=== PATIENT | female | born 1970 | race American Indian/Alaskan Native ===

== ENCOUNTER 2018-01-02 14:40 | Emergency (ER) | payer OTHER ==
[2018-01-02 15:01] VITALS: BP 129/91
--- NOTE | 2018-01-02 15:47 | EDM.PDOC ---
ED HPI GENERAL MEDICAL PROBLEM - General Chief Complaint: Lower Extremity Injury/Pain Stated Complaint: BIG TOE, LEFT FOOT Time Seen by Provider: 01/02/18 15:15 Source of Information: Reports: Patient History Limitations: Reports: No Limitations - History of Present Illness INITIAL COMMENTS - FREE TEXT/NARRATIVE: This 47 yo female patient reports to the ED with pain in her right toes, right foot, right moreno and left great toe. The patient reports that she tripped over a weight lifting bar injuring her feet. The patient reports she has some numbness to her left great toe with swelling. The patient also reports swelling and pain in her right moreno and right foot. The patient had an ice pack in place while in the ED. Onset: Today Duration: Minutes:, Constant Location: Reports: Lower Extremity, Left, Lower Extremity, Right Quality: Reports: Ache, Dull Severity: Moderate Improves with: Reports: None Worsens with: Reports: None Associated Symptoms: Reports: No Other Symptoms Left Feet Pain Score (Numeric/FACES): 8 - Related Data Allergies Allergy/AdvReac Type Severity Reaction Status Date / Time acetaminophen [From Percocet] Allergy Itching Verified 06/23/15 17:55 oxycodone HCl [From Percocet] Allergy Itching Verified 06/23/15 17:55 Home Meds: Home Meds . [No Known Home Meds] 04/16/14 [History] Past Medical History - Past Health History Medical/Surgical History: Denies Medical/Surgical History - Past Surgical History Musculoskeletal Surgical History: Reports: Other (See Below) Other Musculoskeletal Surgeries/Procedures:: foot surg. Social & Family History - Tobacco Use Smoking Status *Q: Never Smoker - Caffeine Use Caffeine Use: Reports: Coffee, Soda, Tea - Recreational Drug Use Recreational Drug Use: No - Living Situation & Occupation Living situation: Reports: with Family Occupation: Employed Review of Systems - Review of Systems Review Of Systems: ROS reveals no pertinent complaints other than HPI. ED EXAM, GENERAL - Physical Exam Exam: See Below Exam Limited By: No Limitations General Appearance: Alert, WD/WN, Mild Distress Eye Exam: Bilateral Eye: EOMI, Normal Inspection, PERRL Ears: Normal External Exam, Normal Canal, Hearing Grossly Normal, Normal TMs Nose: Normal Inspection, Normal Mucosa, No Blood Throat/Mouth: Normal Inspection, Normal Lips, Normal Teeth, Normal Gums, Normal Oropharynx, Normal Voice, No Airway Compromise Head: Atraumatic, Normocephalic Neck: Normal Inspection, Supple, Non-Tender, Full Range of Motion Respiratory/Chest: No Respiratory Distress, Lungs Clear, Normal Breath Sounds, No Accessory Muscle Use, Chest Non-Tender Cardiovascular: Normal Peripheral Pulses, Regular Rate, Rhythm, No Edema, No Gallop, No JVD, No Murmur, No Rub GI/Abdominal: Normal Bowel Sounds, Soft, Non-Tender, No Organomegaly, No Distention, No Abnormal Bruit, No Mass (Female) Exam: Deferred Rectal (Female) Exam: Deferred Back Exam: Normal Inspection, Full Range of Motion, NT Extremities: Leg Pain (right lower leg and foot pain, left great toe pain with numbness), Limited Range of Motion (due to pain) Neurological: Alert, Oriented, CN II-XII Intact, Normal Cognition, Normal Gait, Normal Reflexes, No Motor/Sensory Deficits Psychiatric: Normal Affect, Normal Mood Skin Exam: Warm, Dry, Other (right toe abrasions) Course - Vital Signs Last Recorded V/S: Last Vital Signs Temp 37.1 C 01/02/18 15:00 Pulse 94 01/02/18 15:00 Resp 16 01/02/18 15:00 BP 129/91 H 01/02/18 15:00 Pulse Ox 97 01/02/18 15:00 - Orders/Labs/Meds Orders: Active Orders 24 hr Category Date Time Status Foot Comp Min 3V Lt [CR] Urgent Exams 01/02/18 15:08 Ordered Foot Comp Min 3V Rt [CR] Urgent Exams 01/02/18 15:08 Ordered Tibia Fibula Rt [CR] Urgent Exams 01/02/18 15:08 Ordered Departure - Departure Time of Disposition: 16:25 Disposition: Home, Self-Care 01 Condition: Fair Clinical Impression: Closed fracture of right great toe Qualifiers: Encounter type: initial encounter Phalanx: distal Fracture alignment: nondisplaced Qualified Code(s): S92.424A - Nondisplaced fracture of distal phalanx of right great toe, initial encounter for closed fracture - Discharge Information Instructions: Toe Fracture, [id number] Forms: ED Department Discharge Care Plan Goals: The patient was advised of the examination and x-ray results during the visit. The patient was placed in a left post op shoe. The patient was encouraged to rest and elevate her foot for the next week. The patient should follow-up with her primary care facility in 1 week for continued evaluation and further treatment. If the patient has any additional symptoms or concerns, the patient should visit her primary care facility or return to the emergency department. - My Orders Last 24 Hours: My Active Orders 01/02/18 15:08 Foot Comp Min 3V Lt [CR] Urgent Foot Comp Min 3V Rt [CR] Urgent Tibia Fibula Rt [CR] Urgent - Assessment/Plan Last 24 Hours: My Active Orders 01/02/18 15:08 Foot Comp Min 3V Lt [CR] Urgent Foot Comp Min 3V Rt [CR] Urgent Tibia Fibula Rt [CR] Urgent
--- NOTE | 2018-01-02 16:55 | CR ---
Clinical history: Injured when tripped and fell. Interpretation: AP lateral right lower extremity (tib-fib/fib) demonstrates bilateral soft tissue swe lling and smoothly corticated (old) osseous fragment along the lateral aspect of the distal fibula. No acute long bone fracture or dislocation of the right knee/ankle joint. Large heel spurs identified respectively at the insertion of plantar aponeurosis and Achilles tendon of the os calcis.
--- NOTE | 2018-01-02 16:59 | CR ---
Clinical history: 47-year-old female injured left foot. Pain. 3 views left foot abnormal. INDICATION: Acute nondisplaced fracture base of the distal phalanx, medially, left great toe that ext ends into the DIP joint. Signs of extensive orthopedic corrective valgus surgery including amputation head of the proximal pha langes second, third and fourth toes. 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 Chronic arthritic changes tarsal navicular joint mid foot, first MTP and third MTP joints of the fore foot.
--- NOTE | 2018-01-03 09:28 | CR ---
CLINICAL HISTORY: 47-year-old female with pain right foot after tripping and falling. INTERPRETATION: Pronounced soft tissue swelling over the lateral malleolus. Heel spurs. Pes cavus and hammertoe deformity. Pronounced soft tissue swelling dorsum of the foot but no sign of acute right foot fracture or disloc ation. Atavistic first cuneiform with severe hallux valgus and soft tissue bunion. No foreign bodies. CONCLUSION: Pes cavus, hallux valgus and hammertoe deformities. No fractures right foot.
== END 2018-01-02 16:39 | disposition home or self-care (01) ==
LOC: DL.ED 14:40
DX: S92.425A Nondisplaced fracture of distal phalanx of left great toe, initial encounter for closed fracture (principal); S90.414A Abrasion, right lesser toe(s), initial encounter; Z88.8 Allergy status to other drugs, medicaments and biological substances; W18.09XA Striking against other object with subsequent fall, initial encounter
CPT/HCPCS: 73590-RT; 73630-LT; 73630-RT; 99283

== ENCOUNTER 2018-02-17 16:36 | Emergency (ER) | payer OTHER ==
[2018-02-17] MEDS ORDERED: Sodium Chloride 0.9% 10 ML Syringe FLUSH PRN (18:11)
[2018-02-17] MEDS ORDERED: ceFAZolin 1 GM Vial IVPUSH ONE (18:45)
[2018-02-17] MEDS ORDERED: Ketorolac 30 MG/ML SDV IVPUSH ONE (18:46)
[2018-02-17] MEDS ORDERED: Doxycycline 100 MG Cap PO ONE (18:46)
[2018-02-17 18:48] LABS: ANION GAP 8.8; CHLORIDE,CL 105 mmol/L (101-111); SODIUM,NA 137 mmol/L (135-145)
[2018-02-17 19:14] VITALS: BP 136/81
--- NOTE | 2018-02-19 13:42 | EDM.PDOC ---
Scribed by Chetna William 02/19/18 1342 for Scott Rogers MD ED HPI GENERAL MEDICAL PROBLEM - General Chief Complaint: Lower Extremity Injury/Pain Stated Complaint: [id number] KNEE SWOLLEN AND PAINFUL 3 DAYS Time Seen by Provider: 02/17/18 17:50 Source of Information: Reports: Patient, RN, RN Notes Reviewed History Limitations: Reports: No Limitations - History of Present Illness INITIAL COMMENTS - FREE TEXT/NARRATIVE: Patient presents to ER with pain, swelling and redness to the right lower leg. Patient states that she got a small abrasion to the right moreno on February 14. Yesterday she noticed increased redness and swelling with increased warmth from the ankle to the mid right lower leg. She denies fever or chills but feels slightly ill in general. Also reports sensation of pain and pressure in the right knee. Patient has history of cellulitis. She is unsure if she has ever had MRSA or not. Onset Date: 02/14/18 Duration: Getting Worse Location: Reports: Lower Extremity, Right Quality: Reports: Ache Severity: Severe Improves with: Reports: None Worsens with: Reports: None Associated Symptoms: Reports: No Other Symptoms Right Lower Leg Pain Score (Numeric/FACES): 7 - Related Data Allergies Allergy/AdvReac Type Severity Reaction Status Date / Time acetaminophen [From Percocet] Allergy Itching Verified 06/23/15 17:55 oxycodone HCl [From Percocet] Allergy Itching Verified 06/23/15 17:55 Home Meds: Home Meds . [No Known Home Meds] 04/16/14 [History] Past Medical History - Past Health History Medical/Surgical History: Denies Medical/Surgical History - Past Surgical History Musculoskeletal Surgical History: Reports: Other (See Below) Other Musculoskeletal Surgeries/Procedures:: foot surg. Social & Family History - Caffeine Use Caffeine Use: Reports: Coffee, Soda, Tea - Living Situation & Occupation Living situation: Reports: with Family Occupation: Employed Review of Systems - Review of Systems Review Of Systems: ROS reveals no pertinent complaints other than HPI. ED EXAM, GENERAL - Physical Exam Exam: See Below Exam Limited By: No Limitations General Appearance: Alert, WD/WN, No Apparent Distress, Obese Nose: Normal Inspection Throat/Mouth: Normal Inspection, Normal Voice, No Airway Compromise Head: Atraumatic, Normocephalic Neck: Normal Inspection, Supple, Non-Tender, Full Range of Motion Respiratory/Chest: No Respiratory Distress, Lungs Clear, Normal Breath Sounds, No Accessory Muscle Use, Chest Non-Tender Cardiovascular: Normal Peripheral Pulses, Regular Rate, Rhythm, No Edema, No Gallop, No JVD, No Murmur, No Rub GI/Abdominal: Normal Bowel Sounds, Soft, Non-Tender, No Distention (Female) Exam: Deferred Rectal (Female) Exam: Deferred Extremities: No Pedal Edema, Normal Capillary Refill, Joint Swelling (mild right knee without erythema or increased warmth but with limited range of motion due to pain.), Leg Pain (right lower), Increased Warmth (right lower), Redness (right lower), Other (subacute 2cm abrasion scabbed over with intact eschar at the mid anterior right lower leg. No drainage. ). No: Aide's Sign Neurological: Alert, Oriented, CN II-XII Intact, Normal Cognition, No Motor/ Sensory Deficits Psychiatric: Normal Affect, Normal Mood Course - Vital Signs Last Recorded V/S: Last Vital Signs Temp 36.9 C 02/17/18 19:13 Pulse 66 02/17/18 19:13 Resp 14 02/17/18 19:13 BP 136/81 02/17/18 19:13 Pulse Ox 98 02/17/18 19:13 - Orders/Labs/Meds Labs: Laboratory Tests 02/17/18 02/17/18 02/17/18 Range/Units 18:19 18:19 18:19 WBC 6.2 (5.0-10.0) 10^3/uL RBC 4.84 (4.2-5.4) 10^6/uL Hgb 12.9 (12.0-16.0) g/dL Hct 41.5 (37.0-47.0) % MCV 85.7 D (80-100) fL MCH 26.7 L (27.0-34.0) pg MCHC 31.1 L (33.0-35.0) g/dL Plt Count 364 D (150-450) 10^3/uL Neut % (Auto) 63.3 (42.2-75.2) % Lymph % (Auto) 27.3 (20.5-50.1) % [place] % (Auto) 5.7 (2-8) % Eos % (Auto) 3.4 H (1.0-3.0) % Baso % (Auto) 0.3 (0.0-1.0) % D-Dimer, Quantitative 447 H (0-400) ng/mL Sodium 137 (135-145) mmol/L Potassium 3.8 (3.6-5.0) mmol/L Chloride 105 (101-111) mmol/L Carbon Dioxide 27.0 (21.0-31.0) mmol/L Anion Gap 8.8 BUN 16 (7-18) mg/dL Creatinine 0.7 (0.6-1.3) mg/dL Est Cr Clr Drug Dosing 106.06 mL/min Estimated GFR (MDRD) > 60 BUN/Creatinine Ratio 22.85 Glucose 115 H (74-105) mg/dL Lactic Acid (0.5-2.2) mmol/L Calcium 8.6 (8.4-10.2) mg/dl Total Bilirubin 0.7 (0.2-1.0) mg/dL AST 25 (10-42) IU/L ALT 22 (10-60) IU/L Alkaline Phosphatase 75 (42-121) IU/L C-Reactive Protein (0.0-1.3) mg/dL Total Protein 7.3 (6.7-8.2) g/dl Albumin 3.4 (3.2-5.5) g/dl Globulin 3.9 Albumin/Globulin Ratio 0.87 02/17/18 02/17/18 Range/Units 18:19 18:19 WBC (5.0-10.0) 10^3/uL RBC (4.2-5.4) 10^6/uL Hgb (12.0-16.0) g/dL Hct (37.0-47.0) % MCV (80-100) fL MCH (27.0-34.0) pg MCHC (33.0-35.0) g/dL Plt Count (150-450) 10^3/uL Neut % (Auto) (42.2-75.2) % Lymph % (Auto) (20.5-50.1) % [place] % (Auto) (2-8) % Eos % (Auto) (1.0-3.0) % Baso % (Auto) (0.0-1.0) % D-Dimer, Quantitative (0-400) ng/mL Sodium (135-145) mmol/L Potassium (3.6-5.0) mmol/L Chloride (101-111) mmol/L Carbon Dioxide (21.0-31.0) mmol/L Anion Gap BUN (7-18) mg/dL Creatinine (0.6-1.3) mg/dL Est Cr Clr Drug Dosing mL/min Estimated GFR (MDRD) BUN/Creatinine Ratio Glucose (74-105) mg/dL Lactic Acid 0.9 (0.5-2.2) mmol/L Calcium (8.4-10.2) mg/dl Total Bilirubin (0.2-1.0) mg/dL AST (10-42) IU/L ALT (10-60) IU/L Alkaline Phosphatase (42-121) IU/L C-Reactive Protein 1.7 H (0.0-1.3) mg/dL Total Protein (6.7-8.2) g/dl Albumin (3.2-5.5) g/dl Globulin Albumin/Globulin Ratio Meds: Medications Discontinued Medications Generic Name Dose Route Start Last Admin Trade Name Freq PRN Reason Stop Dose Admin Cefazolin Sodium 1 gm 02/17/18 18:45 02/17/18 19:00 Ancef IVPUSH 02/17/18 18:46 1 gm ONETIME ONE Administration Doxycycline Hyclate 100 mg 02/17/18 18:46 02/17/18 19:00 Vibramycin PO 02/17/18 18:47 100 mg ONETIME ONE Administration Ketorolac Tromethamine 30 mg 02/17/18 18:46 02/17/18 19:00 Toradol IVPUSH 02/17/18 18:47 30 mg ONETIME ONE Administration Sodium Chloride 10 ml 02/17/18 18:11 02/17/18 18:40 Saline Flush FLUSH 10 ml ASDIRECTED PRN Administration Keep Vein Open Departure - Departure Time of Disposition: 19:30 Disposition: Home, Self-Care 01 Condition: Good Clinical Impression: Cellulitis of lower extremity Qualifiers: Laterality: right Qualified Code(s): L03.115 - Cellulitis of right lower limb - Discharge Information Instructions: Cellulitis, Adult Referrals: Mary Ellen Ambrocio NP [Primary Care Provider] - Forms: ED Department Discharge Additional Instructions: Keflex 500mg tab by mouth four times daily for 10 days. Doxycyline 100 mg tab by mouth twice daily for 10 days. Follow up with your primary acute care nurse practitioner. I have read and agree with the documentation that has been completed regarding this visit. By signing this record, I attest that the documentation was completed in my physical presence and is an accurate record of the encounter.
== END 2018-02-17 19:19 | disposition home or self-care (01) ==
LOC: DL.ED 16:36
DX: L03.115 Cellulitis of right lower limb (principal); Z88.8 Allergy status to other drugs, medicaments and biological substances
CPT/HCPCS: 36415; 80053; 83605; 85025; 85379; 86140; 87040; 96374; 96375; 99283; A9270; J0690; J1885; J7050

== ENCOUNTER 2018-04-15 17:41 | Emergency (ER) | payer OTHER ==
[2018-04-15 17:48] VITALS: BP 196/95
[2018-04-15] MEDS ORDERED: metroNIDAZOLE 250 MG Tab PO ONE (18:30)
[2018-04-15] MEDS ORDERED: Cyclobenzaprine 10 MG Tab PO ONE (18:31)
[2018-04-15] MEDS ORDERED: Ibuprofen 800 MG Tab PO ONE (18:32)
--- NOTE | 2018-04-15 18:35 | EDM.PDOC ---
Scribed by Chetna William 04/15/18 2425 for Scott Rogers MD ED HPI GENERAL MEDICAL PROBLEM - General Chief Complaint: Back Pain or Injury Stated Complaint: BACK PROBLEMS [id number] Time Seen by Provider: 04/15/18 17:52 Source of Information: Reports: Patient, RN, RN Notes Reviewed History Limitations: Reports: No Limitations - History of Present Illness INITIAL COMMENTS - FREE TEXT/NARRATIVE: Patient presents to ER with complaint of low back pain and suprapubic pain x1 day. Denies fevers or chills. Denies radiating pain. Denies vaginal bleeding or discharge. Onset Date: 04/14/18 Duration: Getting Worse Location: Reports: Back Quality: Reports: Ache Severity: Moderate Improves with: Reports: None Worsens with: Reports: None Associated Symptoms: Reports: No Other Symptoms Lower Back Pain Score (Numeric/FACES): 10 - Related Data Allergies Allergy/AdvReac Type Severity Reaction Status Date / Time acetaminophen [From Percocet] Allergy Itching Verified 04/15/18 17:45 oxycodone HCl [From Percocet] Allergy Itching Verified 04/15/18 17:45 Home Meds: Home Meds . [No Known Home Meds] 04/16/14 [History] Past Medical History - Past Health History Medical/Surgical History: Denies Medical/Surgical History - Past Surgical History Musculoskeletal Surgical History: Reports: Other (See Below) Other Musculoskeletal Surgeries/Procedures:: foot surg. Social & Family History - Caffeine Use Caffeine Use: Reports: Coffee, Soda, Tea - Living Situation & Occupation Living situation: Reports: with Family Occupation: Employed ED ROS GENERAL - Review of Systems Review Of Systems: ROS reveals no pertinent complaints other than HPI. ED EXAM,LOWER BACK PAIN/INJURY - Physical Exam Exam: See Below Exam Limited By: No Limitations General Appearance: Alert, WD/WN, No Apparent Distress, Obese Head: Atraumatic Neck: Normal Inspection, Supple, Non-Tender, Full Range of Motion Respiratory/Chest: No Respiratory Distress, Lungs Clear, Normal Breath Sounds, No Accessory Muscle Use, Chest Non-Tender Cardiovascular: Regular Rate, Rhythm GI/Abdominal: Normal Bowel Sounds, Soft, Non-Tender, Tender (suprapubic). No: Guarding, Rigid, Rebound (Female) Exam: Deferred Rectal (Female) Exam: Deferred Back Exam: Decreased Range of Motion (LS region), Muscle Spasm (lumbar), Paraspinal Tenderness (lumbar). No: CVA Tenderness (L), CVA Tenderness (R), Vertebral Tenderness Extremities: Normal Inspection, Normal Range of Motion, Non-Tender, No Pedal Edema, Normal Capillary Refill Neurological: Alert, Normal Mood/Affect, Normal Dorsiflexion, CN II-XII Intact, Normal Plantar Flexion, Normal Gait, No Motor/Sensory Deficits, Oriented x 3 Psychiatric: Normal Affect, Normal Mood Skin Exam: Warm, Dry, Intact, Normal Color, No Rash Course - Vital Signs Last Recorded V/S: Last Vital Signs Temp 36.8 C 04/15/18 17:48 Pulse 95 04/15/18 17:48 Resp 15 04/15/18 17:48 BP 196/95 H 04/15/18 17:48 Pulse Ox 99 04/15/18 17:48 - Orders/Labs/Meds Orders: Active Orders 24 hr Category Date Time Status CHLAMYDIA AND GONORRHEA BY TMA Routine Lab 04/15/18 18:25 Ordered Labs: Laboratory Tests 04/15/18 Range/Units 17:50 Urine Color Yellow (YELLOW) Urine Appearance Cloudy (CLEAR) Urine pH 5.5 (5.0-9.0) Ur Specific [place] 1.025 (1.005-1.030) Urine Protein Negative (NEGATIVE) Urine Glucose (UA) Negative (NEGATIVE) Urine Ketones Negative (NEGATIVE) Urine Occult Blood Negative (NEGATIVE) Urine Nitrite Negative (NEGATIVE) Urine Bilirubin Negative (NEGATIVE) Urine Urobilinogen 0.2 (0.2-1.0) mg/dL Ur Leukocyte Esterase Small H (NEGATIVE) Urine RBC 0-5 /HPF Urine WBC 50-75 H (0-5/HPF) /HPF Ur Epithelial Cells Many H /HPF Urine Bacteria Many H (0-FEW/HPF) /HPF Meds: Medications Discontinued Medications Generic Name Dose Route Start Last Admin Trade Name Freq PRN Reason Stop Dose Admin Cyclobenzaprine HCl 10 mg 04/15/18 18:31 Flexeril PO 04/15/18 18:32 ONETIME ONE Ibuprofen 800 mg 04/15/18 18:32 Motrin PO 04/15/18 18:33 ONETIME ONE Metronidazole 500 mg 04/15/18 18:30 Metronidazole PO 04/15/18 18:31 ONETIME ONE Departure - Departure Time of Disposition: 18:31 Disposition: Home, Self-Care 01 Condition: Good Clinical Impression: Bacterial vaginosis, Spasm of muscle of lower back - Discharge Information Instructions: Bacterial Vaginosis, [id number], Back Pain, Adult, [id number] Forms: ED Department Discharge Additional Instructions: RX: Flagyl 500mg. RX: Cyclobenzaprine 10mg. RX: Ibuprofen 600mg. Follow up in clinic for recheck of urine in 7 to 10 days. - My Orders Last 24 Hours: My Active Orders 04/15/18 18:25 CHLAMYDIA AND GONORRHEA BY TMA Routine - Assessment/Plan Last 24 Hours: My Active Orders 04/15/18 18:25 CHLAMYDIA AND GONORRHEA BY TMA Routine I have read and agree with the documentation that has been completed regarding this visit. By signing this record, I attest that the documentation was completed in my physical presence and is an accurate record of the encounter.
== END 2018-04-15 18:51 | disposition home or self-care (01) ==
LOC: DL.ED 17:41
DX: N76.0 Acute vaginitis (principal); B96.89 Other specified bacterial agents as the cause of diseases classified elsewhere; M62.830 Muscle spasm of back; Z88.8 Allergy status to other drugs, medicaments and biological substances
CPT/HCPCS: 81001; 87491; 87591; 99283; A9270

== ENCOUNTER 2018-09-15 16:35 | Emergency (ER) | payer MEDICAID ==
[2018-09-15 17:11] VITALS: BP 130/88
[2018-09-15] MEDS ORDERED: Ondansetron 4 MG Tab.DIS PO ONE (17:48)
--- NOTE | 2018-09-15 17:51 | EDM.PDOC ---
ED HPI GENERAL MEDICAL PROBLEM - General Chief Complaint: General Stated Complaint: NOT FEELING GOOD Time Seen by Provider: 09/15/18 17:30 Source of Information: Reports: Patient History Limitations: Reports: No Limitations - History of Present Illness INITIAL COMMENTS - FREE TEXT/NARRATIVE: Patient complains of vomiting, diarrhea and headaches for 2 days. Her body feels warm all over. She has some lower abdominal pain that comes and goes. Sharp pain. The patient states she has had blood in her stools on and off over the past year , but it's been over a month since her last BM with blood. She had a colonoscopy , but does not know what they said about it. She has had no pain with urination, no blood in her urine and no increased frequency. No cough, sore throat or congestion. She just started taking hydrochlorothiazide for her high BP about 1 week ago. Onset Date: 09/13/18 Duration: Intermittent Location: Reports: Abdomen Severity: Mild Associated Symptoms: Reports: Fever/Chills (hasn't taken her temp, but feels warm all over), Headaches. 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 (at 12:30 today, no improvement.) Headache Pain Score (Numeric/FACES): 8 - Related Data Allergies Allergy/AdvReac Type Severity Reaction Status Date / Time acetaminophen [From Percocet] Allergy Itching Verified 09/15/18 17:14 oxycodone HCl [From Percocet] Allergy Itching Verified 09/15/18 17:14 Home Meds: Home Meds hydroCHLOROthiazide [Hydrochlorothiazide] 12.5 mg PO DAILY 09/15/18 [History] Past Medical History - Past Health History Medical/Surgical History: Denies Medical/Surgical History HEENT History: Reports: None Cardiovascular History: Reports: Hypertension Respiratory History: Reports: Sleep Apnea Other Respiratory History: CPAP Gastrointestinal History: Reports: None Genitourinary History: Reports: None 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 Social & Family History - Family History Family Medical History: Noncontributory - Tobacco Use Smoking Status *Q: Never Smoker - Caffeine Use Caffeine Use: Reports: None - Recreational Drug Use Recreational Drug Use: No - Living Situation & Occupation Living situation: Reports: with Family Occupation: Employed ED ROS GENERAL - Review of Systems Review Of Systems: See Below Constitutional: Reports: Fever HEENT: Reports: No Symptoms Respiratory: Reports: No Symptoms GI/Abdominal: Reports: Abdominal Pain, Diarrhea, Nausea, Vomiting : Reports: No Symptoms Skin: Reports: No Symptoms ED EXAM, GENERAL - Physical Exam Exam: See Below Exam Limited By: No Limitations General Appearance: Alert, WD/WN, No Apparent Distress Respiratory/Chest: No Respiratory Distress, Lungs Clear, Normal Breath Sounds, No Accessory Muscle Use, Chest Non-Tender Cardiovascular: Normal Peripheral Pulses, Regular Rate, Rhythm, No Edema, No Gallop, No JVD, No Murmur, No Rub GI/Abdominal: Normal Bowel Sounds, Soft, No Organomegaly, No Distention, No Abnormal Bruit, No Mass, Tender (lower abdomen) (Female) Exam: Deferred Rectal (Female) Exam: Deferred Skin Exam: Warm, Dry, Intact Lymphatic: No Adenopathy Course - Vital Signs Last Recorded V/S: Last Vital Signs Temp 98.6 F 09/15/18 17:10 Pulse 91 09/15/18 17:10 Resp 16 09/15/18 17:10 BP 130/88 09/15/18 17:10 Pulse Ox 98 09/15/18 17:10 - Orders/Labs/Meds Orders: Active Orders 24 hr Category Date Time Status CHLAMYDIA AND GONORRHEA BY TMA Routine Lab 09/15/18 18:29 Ordered CULTURE URINE [RM] Stat Lab 09/15/18 18:29 Ordered Labs: Laboratory Tests 09/15/18 09/15/18 09/15/18 Range/Units 17:48 17:48 17:55 WBC 7.1 (5.0-10.0) 10^3/uL RBC 4.86 (4.2-5.4) 10^6/uL Hgb 13.3 (12.0-16.0) g/dL Hct 41.9 (37.0-47.0) % MCV 86.2 (80-100) fL MCH 27.4 (27.0-34.0) pg MCHC 31.7 L (33.0-35.0) g/dL Plt Count 385 (150-450) 10^3/uL Neut % (Auto) 77.6 H (42.2-75.2) % Lymph % (Auto) 15.4 L (20.5-50.1) % Edgar % (Auto) 5.8 (2-8) % Eos % (Auto) 1.1 (1.0-3.0) % Baso % (Auto) 0.1 (0.0-1.0) % Sodium (135-145) mmol/L Potassium (3.6-5.0) mmol/L Chloride (101-111) mmol/L Carbon Dioxide (21.0-31.0) mmol/L Anion Gap BUN (7-18) mg/dL Creatinine (0.6-1.3) mg/dL Est Cr Clr Drug Dosing mL/min Estimated GFR (MDRD) BUN/Creatinine Ratio Glucose (74-105) mg/dL Calcium (8.4-10.2) mg/dl Total Bilirubin (0.2-1.0) mg/dL AST (10-42) IU/L ALT (10-60) IU/L Alkaline Phosphatase (42-121) IU/L Total Protein (6.7-8.2) g/dl Albumin (3.2-5.5) g/dl Globulin Albumin/Globulin Ratio Amylase (28-100) U/L Lipase (22-51) U/L Urine Color Yellow (YELLOW) Urine Appearance Slightly cloudy (CLEAR) Urine pH 5.5 (5.0-9.0) Ur Specific Robert >= 1.030 (1.005-1.030) Urine Protein 30 H (NEGATIVE) Urine Glucose (UA) Negative (NEGATIVE) Urine Ketones Trace H (NEGATIVE) Urine Occult Blood Trace-intact H (NEGATIVE) Urine Nitrite Negative (NEGATIVE) Urine Bilirubin Negative (NEGATIVE) Urine Urobilinogen 0.2 (0.2-1.0) mg/dL Ur Leukocyte Esterase Negative (NEGATIVE) Urine RBC 0-5 /HPF Urine WBC 5-10 H (0-5/HPF) /HPF Ur Epithelial Cells Moderate H /HPF Urine Bacteria Moderate H (0-FEW/HPF) /HPF Urine Mucus Moderate H /LPF Urinalysis Comment See note Urine Opiates Screen Negative (NEGATIVE) Ur Oxycodone Screen Negative (NEGATIVE) Urine Methadone Screen Negative (NEGATIVE) Ur Barbiturates Screen Negative (NEGATIVE) U Tricyclic Antidepress Negative (NEGATIVE) Ur Phencyclidine Scrn Negative (NEGATIVE) Ur Amphetamine Screen Negative (NEGATIVE) U Methamphetamines Scrn Negative (NEGATIVE) Urine MDMA Screen Negative (NEGATIVE) U Benzodiazepines Scrn Negative (NEGATIVE) Urine Cocaine Screen Negative (NEGATIVE) U Marijuana (THC) Screen Negative (NEGATIVE) 09/15/18 Range/Units 17:55 WBC (5.0-10.0) 10^3/uL RBC (4.2-5.4) 10^6/uL Hgb (12.0-16.0) g/dL Hct (37.0-47.0) % MCV (80-100) fL MCH (27.0-34.0) pg MCHC (33.0-35.0) g/dL Plt Count (150-450) 10^3/uL Neut % (Auto) (42.2-75.2) % Lymph % (Auto) (20.5-50.1) % Edgar % (Auto) (2-8) % Eos % (Auto) (1.0-3.0) % Baso % (Auto) (0.0-1.0) % Sodium 138 (135-145) mmol/L Potassium 3.7 (3.6-5.0) mmol/L Chloride 107 (101-111) mmol/L Carbon Dioxide 24.0 (21.0-31.0) mmol/L Anion Gap 10.7 BUN 21 H (7-18) mg/dL Creatinine 0.7 (0.6-1.3) mg/dL Est Cr Clr Drug Dosing 106.06 mL/min Estimated GFR (MDRD) > 60 BUN/Creatinine Ratio 30.00 Glucose 105 (74-105) mg/dL Calcium 7.8 L (8.4-10.2) mg/dl Total Bilirubin 0.7 (0.2-1.0) mg/dL AST 23 (10-42) IU/L ALT 22 (10-60) IU/L Alkaline Phosphatase 92 (42-121) IU/L Total Protein 7.7 (6.7-8.2) g/dl Albumin 3.3 (3.2-5.5) g/dl Globulin 4.4 Albumin/Globulin Ratio 0.75 Amylase 47 (28-100) U/L Lipase 22 (22-51) U/L Urine Color (YELLOW) Urine Appearance (CLEAR) Urine pH (5.0-9.0) Ur Specific Robert (1.005-1.030) Urine Protein (NEGATIVE) Urine Glucose (UA) (NEGATIVE) Urine Ketones (NEGATIVE) Urine Occult Blood (NEGATIVE) Urine Nitrite (NEGATIVE) Urine Bilirubin (NEGATIVE) Urine Urobilinogen (0.2-1.0) mg/dL Ur Leukocyte Esterase (NEGATIVE) Urine RBC /HPF Urine WBC (0-5/HPF) /HPF Ur Epithelial Cells /HPF Urine Bacteria (0-FEW/HPF) /HPF Urine Mucus /LPF Urinalysis Comment Urine Opiates Screen (NEGATIVE) Ur Oxycodone Screen (NEGATIVE) Urine Methadone Screen (NEGATIVE) Ur Barbiturates Screen (NEGATIVE) U Tricyclic Antidepress (NEGATIVE) Ur Phencyclidine Scrn (NEGATIVE) Ur Amphetamine Screen (NEGATIVE) U Methamphetamines Scrn (NEGATIVE) Urine MDMA Screen (NEGATIVE) U Benzodiazepines Scrn (NEGATIVE) Urine Cocaine Screen (NEGATIVE) U Marijuana (THC) Screen (NEGATIVE) Meds: Medications Discontinued Medications Generic Name Dose Route Start Last Admin Trade Name Freq PRN Reason Stop Dose Admin Metronidazole 500 mg 09/15/18 18:32 Metronidazole PO 09/15/18 18:33 ONETIME ONE Ondansetron HCl 4 mg 09/15/18 17:48 09/15/18 17:56 Zofran Odt PO 09/15/18 17:49 4 mg ONETIME ONE Administration Promethazine HCl 25 mg 09/15/18 18:32 Phenergan PO 09/15/18 18:33 ONETIME ONE Departure - Departure Time of Disposition: 18:41 Disposition: Home, Self-Care 01 Clinical Impression: Bacterial vaginal infection - Discharge Information *PRESCRIPTION DRUG MONITORING PROGRAM REVIEWED*: Not Applicable *COPY OF PRESCRIPTION DRUG MONITORING REPORT IN PATIENT RONA: Not Applicable Forms: ED Department Discharge - Problem List Review Problem List Initiated/Reviewed/Updated: Yes - Assessment/Plan Assessment:: 47 year old women with complaints of lower abdominal pain, vomiting, diarrhea and headaches for 2 days. Labs suggest bacterial vaginosis. Plan: 1. Metronidazole 500mg 2. Zofran 4 mg 3. Phenergan 25mg 4. Sent patient home after taking tonight's dose of medications. Will pick-up rest of prescription tomorrow morning at her pharmacy. 5. F/u with primary care facility if symptoms do not improve.
[2018-09-15 18:22] LABS: ANION GAP 10.7; CHLORIDE,CL 107 mmol/L (101-111); SODIUM,NA 138 mmol/L (135-145)
[2018-09-15] MEDS ORDERED: Promethazine 25 MG Tab PO ONE (18:32)
[2018-09-15] MEDS ORDERED: metroNIDAZOLE 250 MG Tab PO ONE (18:32)
== END 2018-09-15 19:10 | disposition home or self-care (01) ==
LOC: DL.ED 16:35
DX: N76.0 Acute vaginitis (principal); B96.89 Other specified bacterial agents as the cause of diseases classified elsewhere; I10 Essential (primary) hypertension; Z88.5 Allergy status to narcotic agent; Z88.8 Allergy status to other drugs, medicaments and biological substances; Z79.899 Other long term (current) drug therapy
CPT/HCPCS: 36415; 80053; 80305-QW; 81001; 82150; 83690; 85025; 87086; 99284; A9270-GY

== ENCOUNTER 2018-10-26 09:25 | Emergency (ER) | payer MEDICAID ==
[2018-10-26 09:44] VITALS: BP 149/97
[2018-10-26] MEDS ORDERED: methylPREDNISolone Sodium Succinate 125 MG/2 ML SDV IM ONE (09:45)
[2018-10-26] MEDS ORDERED: Ketorolac 30 MG/ML SDV IM ONE (09:45)
[2018-10-26 10:21] LABS: ANION GAP 13.6; CHLORIDE,CL 105 mmol/L (101-111); SODIUM,NA 137 mmol/L (135-145)
--- NOTE | 2018-10-26 17:31 | ER ---
SUBJECTIVE: The patient is a 47-year-old female who states she is normally healthy. She comes in because she has had a cold for about a week. She has been coughing a lot and the more she coughs, more her chest wall hurts. She denies any chest wall injury or trauma. No falls, no fevers, no nausea or vomiting. No bowel or bladder changes or bleeding. No ear pain, sinus pain, or sore throat. CURRENT MEDICATIONS: Denied. ALLERGIES: Include acetaminophen and oxycodone, both cause itching. PAST MEDICAL HISTORY: She denies any significant history. SOCIAL HISTORY: No substance abuse. REVIEW OF SYSTEMS: No fevers or chills. No sore throat, ear pain, eye pain, sinus pain, neck pain. No abdominal pain, bowel or bladder changes or bleeding. Denies . Please see HPI. OBJECTIVE: Vitals: Stable. She is afebrile, heart rate 74, blood pressure 149/97, respiration rate 16, oxygen is 99% on room air. General: Ambulatory. Healthy appearing but overweight. HEENT: Normocephalic and atraumatic. Conjunctivae are clear. ENT exam not remarkable. Neck: Unremarkable. Chest: Clear breathing and breathing well. No coughing, moving air with good breath sounds throughout. She does have chest wall tenderness. There is no rash, atraumatic. No crepitus or specific tenderness. Abdomen: Soft, obese. Back: No CVAT. Extremities: No edema. LABORATORY DATA/STUDIES: Chest x-ray does not show any specific pneumonia. Troponin is normal. CBC and CMP are not remarkable. EKG does not show any acute findings. Normal sinus rate. EMERGENCY ROOM COURSE: She was given injection of Toradol and Solu-Medrol. Tolerated these very well. She is improved and stable. ASSESSMENT: 1. Bronchitis. 2. Costochondritis/atypical chest wall pain. PLAN: Prescription for Medrol Dosepak, Z-Samuel, Tessalon Perles, and albuterol inhaler. Symptomatic treatment. [id number] cough meds and syrup, rest, sleep, hydration, humidifier. Follow up with PCP or return for emergent issues. [facility] /[id number]
== END 2018-10-26 10:48 | disposition home or self-care (01) ==
LOC: DL.ED 09:25
DX: J40 Bronchitis, not specified as acute or chronic (principal); M94.0 Chondrocostal junction syndrome [Tietze]; Z88.6 Allergy status to analgesic agent
CPT/HCPCS: 36415; 71046; 80053; 84484; 85025; 93005; 96372; 99285; J1885; J2930

== ENCOUNTER 2018-10-29 13:03 | Emergency (ER) | payer MEDICAID ==
[2018-10-29 13:16] VITALS: BP 151/81
--- NOTE | 2018-10-29 13:45 | EDM.PDOC ---
ED HPI GENERAL MEDICAL PROBLEM - General Chief Complaint: Respiratory Problem Stated Complaint: HARD TIME BREATHING Time Seen by Provider: 10/29/18 13:35 Source of Information: Reports: Patient History Limitations: Reports: No Limitations - History of Present Illness INITIAL COMMENTS - FREE TEXT/NARRATIVE: This 47 yo female patient reports to the ED with increased shortness of breath. 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 Today, as she was on her way back from [place], she began to have difficulties breathing. The patient reports she was seen in the ED on Saturday (10/26/18) for similar symptoms. The patient reports she was diagnosed with Bronchitis and given prescriptions for 1) Azithromycin, 2) Prednisone and 3) Albuterol inhaler. The patient reports she has not taken any of her medications today. The patient reports she was going to use the inhaler on her way back to [place], but she forgot it at her home. The patient reports she does not have a primary care provider. Onset: Today Duration: Constant Location: Reports: Chest Quality: Reports: Other Severity: Moderate Improves with: Reports: Rest Worsens with: Reports: Movement Associated Symptoms: Reports: Shortness of Breath Middle Chest Pain Score (Numeric/FACES): 4 - Related Data Allergies Allergy/AdvReac Type Severity Reaction Status Date / Time acetaminophen [From Percocet] Allergy Itching Verified 10/29/18 13:07 oxycodone HCl [From Percocet] Allergy Itching Verified 10/29/18 13:07 Home Meds: Home Meds Albuterol Sulfate [Albuterol Sulfate Hfa] 1 puff INH Q4HR PRN 10/29/18 [History] Benzonatate [Tessalon Perle] 100 mg PO TID PRN 10/29/18 [History] Past Medical History - Past Health History Medical/Surgical History: Denies Medical/Surgical History HEENT History: Reports: None Cardiovascular History: Reports: Hypertension Respiratory History: Reports: Bronchitis, Recurrent, Sleep Apnea Other Respiratory History: CPAP Gastrointestinal History: Reports: None Genitourinary History: Reports: None 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 Social & Family History - Family History Family Medical History: Noncontributory - Tobacco Use Smoking Status *Q: Never Smoker Second Hand Smoke Exposure: No - Caffeine Use Caffeine Use: Reports: Soda - Recreational Drug Use Recreational Drug Use: No - Living Situation & Occupation Living situation: Reports: with Family Occupation: Employed ED ROS GENERAL - Review of Systems Review Of Systems: ROS reveals no pertinent complaints other than HPI. ED EXAM, GENERAL - Physical Exam Exam: See Below Exam Limited By: No Limitations General Appearance: Alert, WD/WN, Moderate Distress Eye Exam: Bilateral Eye: EOMI, Normal Inspection, PERRL Ears: Normal External Exam, Normal Canal, Hearing Grossly Normal, Normal TMs Nose: Normal Inspection, Normal Mucosa, No Blood Throat/Mouth: Normal Inspection, Normal Lips, Normal Teeth, Normal Gums, Normal Oropharynx, Normal Voice, No Airway Compromise Head: Atraumatic, Normocephalic Neck: Normal Inspection Respiratory/Chest: No Respiratory Distress, No Accessory Muscle Use, Chest Non- Tender, Decreased Breath Sounds Cardiovascular: Normal Peripheral Pulses, Regular Rate, Rhythm, No Edema, No Gallop, No JVD, No Murmur, No Rub GI/Abdominal: Normal Bowel Sounds, Soft, Non-Tender, No Organomegaly, No Distention, No Abnormal Bruit, No Mass (Female) Exam: Deferred Rectal (Female) Exam: Deferred Back Exam: Normal Inspection, Full Range of Motion, NT Extremities: Normal Inspection, Normal Range of Motion, Non-Tender, Normal Capillary Refill, No Pedal Edema Neurological: Alert, Oriented, CN II-XII Intact, Normal Cognition, Normal Gait, Normal Reflexes, No Motor/Sensory Deficits Psychiatric: Normal Affect, Normal Mood Skin Exam: Warm, Dry, Intact, Normal Color, No Rash Lymphatic: No Adenopathy Course - Vital Signs Last Recorded V/S: Last Vital Signs Temp 36.4 C 10/29/18 13:11 Pulse 74 10/29/18 13:49 Resp 24 H 10/29/18 13:11 BP 151/81 H 10/29/18 13:11 Pulse Ox 98 10/29/18 13:49 - Orders/Labs/Meds Orders: Active Orders 24 hr Category Date Time Status RT Aerosol Therapy [RC] ASDIRECTED Care 10/29/18 13:38 Ordered Labs: Laboratory Tests 10/29/18 10/29/18 10/29/18 Range/Units 13:38 13:38 13:38 WBC 11.8 H (5.0-10.0) 10^3/uL RBC 4.46 (4.2-5.4) 10^6/uL Hgb 12.0 (12.0-16.0) g/dL Hct 38.4 (37.0-47.0) % MCV 86.1 (80-100) fL MCH 26.9 L (27.0-34.0) pg MCHC 31.3 L (33.0-35.0) g/dL Plt Count 440 (150-450) 10^3/uL Neut % (Auto) 66.6 (42.2-75.2) % Lymph % (Auto) 24.0 (20.5-50.1) % [place] % (Auto) 7.2 (2-8) % Eos % (Auto) 1.9 (1.0-3.0) % Baso % (Auto) 0.3 (0.0-1.0) % Sodium 137 (135-145) mmol/L Potassium 3.8 (3.6-5.0) mmol/L Chloride 103 (101-111) mmol/L Carbon Dioxide 24.0 (21.0-31.0) mmol/L Anion Gap 13.8 BUN 17 (7-18) mg/dL Creatinine 0.7 (0.6-1.3) mg/dL Est Cr Clr Drug Dosing 106.06 mL/min Estimated GFR (MDRD) > 60 BUN/Creatinine Ratio 24.28 Glucose 84 (74-105) mg/dL Calcium 8.7 (8.4-10.2) mg/dl Total Bilirubin 0.6 (0.2-1.0) mg/dL AST 21 (10-42) IU/L ALT 31 (10-60) IU/L Alkaline Phosphatase 83 (42-121) IU/L B-Natriuretic Peptide 5 (0-100) pg/ml Total Protein 7.3 (6.7-8.2) g/dl Albumin 3.3 (3.2-5.5) g/dl Globulin 4.0 Albumin/Globulin Ratio 0.83 Meds: Medications Discontinued Medications Generic Name Dose Route Start Last Admin Trade Name Ze PRN Reason Stop Dose Admin Albuterol/Ipratropium 3 ml 10/29/18 13:38 10/29/18 13:49 Duoneb 3.0-0.5 Mg/3 Ml NEB 10/29/18 13:39 3 ml ONETIME ONE Administration Departure - Departure Time of Disposition: 14:13 Disposition: Home, Self-Care 01 Condition: Fair Clinical Impression: Bronchitis - Discharge Information *PRESCRIPTION DRUG MONITORING PROGRAM REVIEWED*: Not Applicable *COPY OF PRESCRIPTION DRUG MONITORING REPORT IN PATIENT RONA: Not Applicable Instructions: Acute Bronchitis, Adult, [id number] Forms: ED Department Discharge Care Plan Goals: The patient was advised of the examination, lab and x-ray results during the visit. The patient was given an albuterol nebulizer treatment while in the ED. The patient was advised to continue to take her medications as prescribed. If the patient has any additional symptoms or concerns, the patient should either return to the emergency department or visit her primary care facility. - My Orders Last 24 Hours: My Active Orders 10/29/18 13:38 RT Aerosol Therapy [RC] ASDIRECTED - Assessment/Plan Last 24 Hours: My Active Orders 10/29/18 13:38 RT Aerosol Therapy [RC] ASDIRECTED
[2018-10-29] MEDS: Albuterol/Ipratropium 3.0-0.5 MG/3 ML Neb Soln NEB ONE (13:49)
--- NOTE | 2018-10-29 13:59 | CR ---
Clinical history: 47-year-old female complaining of shortness of breath. Interpretation: No acute new cardiopulmonary abnormality since 26 October 2018 exam. Reasonable respiratory effort obese female. Normal cardiac silhouette without alveolar edema or dependent effusion. No lung mass or hilar lymphadenopathy. No focal lobar pneumonia or atelectasis. No air trapping. No pneumothorax.
[2018-10-29 14:04] LABS: ANION GAP 13.8; CHLORIDE,CL 103 mmol/L (101-111); SODIUM,NA 137 mmol/L (135-145)
== END 2018-10-29 14:23 | disposition home or self-care (01) ==
LOC: DL.ED 13:03
DX: J40 Bronchitis, not specified as acute or chronic (principal); I10 Essential (primary) hypertension; Z88.8 Allergy status to other drugs, medicaments and biological substances
CPT/HCPCS: 36415; 71046; 80053; 83880; 85025; 94640; 99285-25; J7620-GY

== ENCOUNTER 2018-12-09 21:12 | Emergency (ER) | payer MEDICAID ==
[2018-12-09 21:35] VITALS: BP 147/65
[2018-12-09 23:26] LABS: ANION GAP 12.7; CHLORIDE,CL 105 mmol/L (101-111); SODIUM,NA 138 mmol/L (135-145)
[2018-12-09] MEDS ORDERED: Potassium Chloride 10 MEQ Tab.ER PO ONE (23:45)
[2018-12-09] MEDS ORDERED: Furosemide 20 MG Tab PO ONE (23:45)
--- NOTE | 2018-12-09 23:49 | EDM.PDOC ---
ED HPI GENERAL MEDICAL PROBLEM - General Chief Complaint: Lower Extremity Injury/Pain Stated Complaint: ANKLES AND LEGS SWOLLEN Time Seen by Provider: 12/09/18 21:35 Source of Information: Reports: Patient, RN History Limitations: Reports: No Limitations - History of Present Illness INITIAL COMMENTS - FREE TEXT/NARRATIVE: ED with c/o swelling to lower legs. Driving in car today and swelling seems worse than usual Admits has been instructed in past to use compression stockings but has not obtained yet. Tried putting feet up for 30minutes but didn 't help. Anterior shins bilaterally fell like burning. No pain with walking. No hx of blood clots or family hx. Not diabetic.No shortness of breath. Bilateral Lower Leg Pain Score (Numeric/FACES): 8 - Related Data Allergies Allergy/AdvReac Type Severity Reaction Status Date / Time acetaminophen [From Percocet] Allergy Itching Verified 12/09/18 21:33 oxycodone HCl [From Percocet] Allergy Itching Verified 12/09/18 21:33 Home Meds: Home Meds Albuterol Sulfate [Albuterol Sulfate Hfa] 1 puff INH Q4HR PRN 10/29/18 [History] Benzonatate [Tessalon Perle] 100 mg PO TID PRN 10/29/18 [History] Past Medical History - Past Health History Medical/Surgical History: Denies Medical/Surgical History HEENT History: Reports: None Cardiovascular History: Reports: Hypertension Respiratory History: Reports: Bronchitis, Recurrent, Sleep Apnea Other Respiratory History: CPAP Gastrointestinal History: Reports: None Genitourinary History: Reports: None 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 Social & Family History - Family History Family Medical History: Noncontributory - Tobacco Use Smoking Status *Q: Never Smoker Second Hand Smoke Exposure: No - Caffeine Use Caffeine Use: Reports: Soda - Recreational Drug Use Recreational Drug Use: No - Living Situation & Occupation Living situation: Reports: with Family Occupation: Employed Review of Systems - Review of Systems Review Of Systems: ROS reveals no pertinent complaints other than HPI. ED EXAM, GENERAL - Physical Exam Exam: See Below Exam Limited By: No Limitations General Appearance: Alert, No Apparent Distress Eye Exam: Bilateral Eye: EOMI Ears: Normal External Exam, Normal TMs Nose: Normal Inspection, Normal Mucosa Throat/Mouth: Normal Inspection, Normal Voice Head: Atraumatic, Normocephalic Neck: Normal Inspection Respiratory/Chest: No Respiratory Distress, Lungs Clear, Normal Breath Sounds Cardiovascular: Normal Peripheral Pulses, Regular Rate, Rhythm. No: No Edema (1 -2+ankle and pretibial, no calf tenderness) GI/Abdominal: Normal Bowel Sounds Extremities: Pedal Edema, Leg Pain (anterior bilateral lower legs) Neurological: Alert, Oriented, Normal Cognition Psychiatric: Normal Affect Skin Exam: Warm, Dry, Intact, Normal Color Course - Vital Signs Last Recorded V/S: Last Vital Signs Temp 97.9 F 12/09/18 21:31 Pulse 79 12/09/18 21:31 Resp 18 12/09/18 21:31 BP 147/65 H 12/09/18 21:31 Pulse Ox 96 12/09/18 21:31 - Orders/Labs/Meds Labs: Laboratory Tests 12/09/18 12/09/18 12/09/18 Range/Units 23:01 23:01 23:01 WBC 7.9 (5.0-10.0) 10^3/uL RBC 4.52 (4.2-5.4) 10^6/uL Hgb 12.2 (12.0-16.0) g/dL Hct 38.1 (37.0-47.0) % MCV 84.3 (80-100) fL MCH 27.0 (27.0-34.0) pg MCHC 32.0 L (33.0-35.0) g/dL Plt Count 415 (150-450) 10^3/uL Neut % (Auto) 63.0 (42.2-75.2) % Lymph % (Auto) 26.4 (20.5-50.1) % [place] % (Auto) 6.5 (2-8) % Eos % (Auto) 3.7 H (1.0-3.0) % Baso % (Auto) 0.4 (0.0-1.0) % D-Dimer, Quantitative 291 (0-400) ng/mL Sodium 138 (135-145) mmol/L Potassium 3.7 (3.6-5.0) mmol/L Chloride 105 (101-111) mmol/L Carbon Dioxide 24.0 (21.0-31.0) mmol/L Anion Gap 12.7 BUN 12 (7-18) mg/dL Creatinine 0.6 (0.6-1.3) mg/dL Est Cr Clr Drug Dosing 122.44 mL/min Estimated GFR (MDRD) > 60 BUN/Creatinine Ratio 20.00 Glucose 128 H (74-105) mg/dL Calcium 8.3 L (8.4-10.2) mg/dl Total Bilirubin 0.7 (0.2-1.0) mg/dL AST 27 (10-42) IU/L ALT 26 (10-60) IU/L Alkaline Phosphatase 88 (42-121) IU/L B-Natriuretic Peptide 6 (0-100) pg/ml Total Protein 6.6 L (6.7-8.2) g/dl Albumin 3.0 L (3.2-5.5) g/dl Globulin 3.6 Albumin/Globulin Ratio 0.83 Meds: Medications Discontinued Medications Generic Name Dose Route Start Last Admin Trade Name Freq PRN Reason Stop Dose Admin Furosemide 20 mg 12/09/18 23:45 12/09/18 23:54 Lasix PO 12/09/18 23:46 20 mg ONETIME ONE Administration Potassium Chloride 20 meq 12/09/18 23:45 12/09/18 23:52 Klor-Con 10 PO 12/09/18 23:46 20 meq ONETIME ONE Administration - Re-Assessments/Exams Free Text/Narrative Re-Assessment/Exam: 12/10/18 06:04 Results of labs reviewed withpatient. Single dose lasix and potassium tonight. Recommend patient follow up with primary care. Obtain compression stockings as previously directed. Departure - Departure Time of Disposition: 23:47 Disposition: Home, Self-Care 01 Condition: Good Clinical Impression: Edema Qualifiers: Edema type: localized Qualified Code(s): R60.0 - Localized edema - Discharge Information *PRESCRIPTION DRUG MONITORING PROGRAM REVIEWED*: No *COPY OF PRESCRIPTION DRUG MONITORING REPORT IN PATIENT RONA: No Instructions: Peripheral Edema Referrals: Mary Ellen Ambrocio NP [Primary Care Provider] - Forms: ED Department Discharge Additional Instructions: elevate extremities compression stockings limit salt and sodium intake follow up in clinic
== END 2018-12-09 23:56 | disposition home or self-care (01) ==
LOC: DL.ED 21:12
DX: R60.0 Localized edema (principal); I10 Essential (primary) hypertension; Z88.8 Allergy status to other drugs, medicaments and biological substances; Z88.5 Allergy status to narcotic agent; Z79.899 Other long term (current) drug therapy
CPT/HCPCS: 36415; 80053; 83880; 85025; 85379; 99284; A9270

== ENCOUNTER 2018-12-23 18:42 | Emergency (ER) | payer MEDICAID ==
[2018-12-23 18:58] VITALS: BP 186/94
[2018-12-23 19:28] LABS: ANION GAP 12.4; CHLORIDE,CL 106 mmol/L (101-111); SODIUM,NA 135 mmol/L (135-145)
[2018-12-23] MEDS ORDERED: Sodium Chloride 0.9% 1,000 ML IV ONE (19:44)
[2018-12-23] MEDS ORDERED: fentaNYL 100 MCG/2 ML SDV IVPUSH ONE (19:45)
[2018-12-23] MEDS: Iopamidol 755 Mg/ML 100 ML Bottle IVPUSH ONE ×2 (20:16→20:18)
[2018-12-23] MEDS ORDERED: GI Cocktail Oral Solution 30 ML PO ONE (20:36)
--- NOTE | 2018-12-23 20:55 | EDM.PDOC ---
ED HPI GENERAL MEDICAL PROBLEM - General Chief Complaint: Chest Pain Stated Complaint: TROUBLE BREATHING, CHEST HURTS Time Seen by Provider: 12/23/18 19:00 Source of Information: Reports: Patient, RN Notes Reviewed History Limitations: Reports: No Limitations - History of Present Illness INITIAL COMMENTS - FREE TEXT/NARRATIVE: ED with c/o lower midsternal sharp pain worse with movement and deep breathing since this morning. Patient reported had been seen in [place] today for same , was told needed CT, Stated she did not stay to have done. 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 No fever or chills< mild cough< no nausea or vomiting Chest Pain Score (Numeric/FACES): 9 - Related Data Allergies Allergy/AdvReac Type Severity Reaction Status Date / Time acetaminophen [From Percocet] Allergy Itching Verified 12/09/18 21:33 oxycodone HCl [From Percocet] Allergy Itching Verified 12/09/18 21:33 Home Meds: Home Meds Albuterol Sulfate [Albuterol Sulfate Hfa] 1 puff INH Q4HR PRN 10/29/18 [History] Benzonatate [Tessalon Perle] 100 mg PO TID PRN 10/29/18 [History] Past Medical History - Past Health History Medical/Surgical History: Denies Medical/Surgical History HEENT History: Reports: None Cardiovascular History: Reports: Hypertension Respiratory History: Reports: Bronchitis, Recurrent, Sleep Apnea Other Respiratory History: CPAP Gastrointestinal History: Reports: None Genitourinary History: Reports: None 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 Social & Family History - Family History Family Medical History: Noncontributory - Tobacco Use Smoking Status *Q: Never Smoker - Caffeine Use Caffeine Use: Reports: None - Recreational Drug Use Recreational Drug Use: No - Living Situation & Occupation Living situation: Reports: with Family Occupation: Employed ED ROS GENERAL - Review of Systems Review Of Systems: ROS reveals no pertinent complaints other than HPI. ED EXAM, GENERAL - Physical Exam Exam: See Below Exam Limited By: No Limitations General Appearance: Alert, Anxious, Mild Distress Eye Exam: Bilateral Eye: EOMI Ears: Normal External Exam, Normal TMs Nose: Normal Inspection Throat/Mouth: Normal Inspection Head: Atraumatic, Normocephalic Neck: Normal Inspection Respiratory/Chest: No Respiratory Distress, Lungs Clear, Normal Breath Sounds Cardiovascular: Normal Peripheral Pulses, Regular Rate, Rhythm GI/Abdominal: Normal Bowel Sounds, Soft Extremities: Normal Inspection Neurological: Alert, Oriented, Normal Cognition Psychiatric: Anxious, Tearful Skin Exam: Warm, Dry, Intact, Normal Color Course - Vital Signs Last Recorded V/S: Last Vital Signs Temp 99.8 F 12/23/18 18:47 Pulse 119 H 12/23/18 18:47 Resp 24 H 12/23/18 18:47 BP 186/94 H 12/23/18 18:58 Pulse Ox 95 12/23/18 18:47 - Orders/Labs/Meds Orders: Active Orders 24 hr Category Date Time Status EKG 12 Lead [EKG Documentation Completion] [RC] URGENT Care 12/23/18 19:08 Active Labs: Laboratory Tests 12/23/18 12/23/18 12/23/18 Range/Units 18:50 18:50 18:50 WBC 18.1 H (5.0-10.0) 10^3/uL RBC 5.11 (4.2-5.4) 10^6/uL Hgb 13.7 D (12.0-16.0) g/dL Hct 43.2 (37.0-47.0) % MCV 84.5 (80-100) fL MCH 26.8 L (27.0-34.0) pg MCHC 31.7 L (33.0-35.0) g/dL Plt Count 417 (150-450) 10^3/uL Neut % (Auto) (42.2-75.2) % Add Manual Diff Yes Neutrophils % (Manual) 69 (42-75) % Band Neutrophils % 4 % Lymphocytes % (Manual) 22 (20-50) % Monocytes % (Manual) 2 (2-8) % Eosinophils % (Manual) 3 (1-3) % D-Dimer, Quantitative 472 H (0-400) ng/mL Sodium 135 (135-145) mmol/L Potassium 4.4 (3.6-5.0) mmol/L Chloride 106 (101-111) mmol/L Carbon Dioxide 21.0 (21.0-31.0) mmol/L Anion Gap 12.4 BUN 16 (7-18) mg/dL Creatinine 0.7 (0.6-1.3) mg/dL Est Cr Clr Drug Dosing 104.95 mL/min Estimated GFR (MDRD) > 60 BUN/Creatinine Ratio 22.85 Glucose 143 H (74-105) mg/dL Calcium 8.5 (8.4-10.2) mg/dl Total Bilirubin 0.9 (0.2-1.0) mg/dL AST 32 (10-42) IU/L ALT 22 (10-60) IU/L Alkaline Phosphatase 79 (42-121) IU/L Troponin I < 0.02 (0.00-0.02) ng/ml Total Protein 7.9 (6.7-8.2) g/dl Albumin 3.8 (3.2-5.5) g/dl Globulin 4.1 Albumin/Globulin Ratio 0.93 TSH, Ultra Sensitive (0.45-5.33) uIu/mL 12/23/18 Range/Units 18:50 WBC (5.0-10.0) 10^3/uL RBC (4.2-5.4) 10^6/uL Hgb (12.0-16.0) g/dL Hct (37.0-47.0) % MCV (80-100) fL MCH (27.0-34.0) pg MCHC (33.0-35.0) g/dL Plt Count (150-450) 10^3/uL Neut % (Auto) (42.2-75.2) % Add Manual Diff Neutrophils % (Manual) (42-75) % Band Neutrophils % % Lymphocytes % (Manual) (20-50) % Monocytes % (Manual) (2-8) % Eosinophils % (Manual) (1-3) % D-Dimer, Quantitative (0-400) ng/mL Sodium (135-145) mmol/L Potassium (3.6-5.0) mmol/L Chloride (101-111) mmol/L Carbon Dioxide (21.0-31.0) mmol/L Anion Gap BUN (7-18) mg/dL Creatinine (0.6-1.3) mg/dL Est Cr Clr Drug Dosing mL/min Estimated GFR (MDRD) BUN/Creatinine Ratio Glucose (74-105) mg/dL Calcium (8.4-10.2) mg/dl Total Bilirubin (0.2-1.0) mg/dL AST (10-42) IU/L ALT (10-60) IU/L Alkaline Phosphatase (42-121) IU/L Troponin I (0.00-0.02) ng/ml Total Protein (6.7-8.2) g/dl Albumin (3.2-5.5) g/dl Globulin Albumin/Globulin Ratio TSH, Ultra Sensitive 2.22 (0.45-5.33) uIu/mL Meds: Medications Discontinued Medications Generic Name Dose Route Start Last Admin Trade Name Freq PRN Reason Stop Dose Admin Al Hydroxide/Mg Hydroxide 30 ml 12/23/18 20:36 12/23/18 20:40 Gi Cocktail PO 12/23/18 20:37 30 ml ONETIME ONE Administration Fentanyl 25 mcg 12/23/18 19:45 12/23/18 19:52 Sublimaze IVPUSH 12/23/18 19:46 25 mcg ONETIME ONE Administration Sodium Chloride 1,000 mls @ 999 mls/hr 12/23/18 19:44 12/23/18 20:07 Normal Saline IV 12/23/18 20:44 999 mls/hr .BOLUS ONE Administration Iopamidol 100 ml 12/23/18 19:43 12/23/18 20:18 Isovue-370 (76%) IVPUSH 12/23/18 19:44 100 ml ONETIME ONE Administration Departure - Departure Time of Disposition: 20:51 Disposition: Home, Self-Care 01 Condition: Good Clinical Impression: Non-cardiac chest pain Acid reflux Qualifiers: Esophagitis presence: esophagitis presence not specified Qualified Code(s): K21.9 - Gastro-esophageal reflux disease without esophagitis Hypertension Qualifiers: Hypertension type: essential hypertension Qualified Code(s): I10 - Essential ( primary) hypertension Instructions: Nonspecific Chest Pain, [id number] Referrals: Mary Ellen Ambrocio NP [Primary Care Provider] - Forms: ED Department Discharge Additional Instructions: light diet no caffeine no energy drinks, bland foods omeprazole 20mg daily continue home medications tylenol 650mg every 4 hours as needed clinic follow up this week - My Orders Last 24 Hours: My Active Orders 12/23/18 19:08 EKG 12 Lead [EKG Documentation Completion] [RC] URGENT - Assessment/Plan Last 24 Hours: My Active Orders 12/23/18 19:08 EKG 12 Lead [EKG Documentation Completion] [RC] URGENT
== END 2018-12-23 21:08 | disposition home or self-care (01) ==
LOC: DL.ED 18:42
DX: K21.9 Gastro-esophageal reflux disease without esophagitis (principal); I10 Essential (primary) hypertension; Z88.6 Allergy status to analgesic agent
CPT/HCPCS: 36415; 71260; 80053; 84443; 84484; 85025; 85379; 93005; 96361; 96374; 99285; A9270; J3010; J7030; Q9967

== ENCOUNTER 2018-12-24 10:08 | Emergency (ER) | payer MEDICAID ==
--- NOTE | 2018-12-24 10:30 | EDM.PDOC ---
ED HPI GENERAL MEDICAL PROBLEM - General Chief Complaint: ENT Problem Stated Complaint: SORE THROAT [id number] Time Seen by Provider: 12/24/18 10:26 Source of Information: Reports: Patient History Limitations: Reports: No Limitations - History of Present Illness INITIAL COMMENTS - FREE TEXT/NARRATIVE: This 48 yo female patient reports to the ED with a 2 day history of a sore throat. The patient reports she was seen in [place] yesterday morning and in this ED last evening due to shortness of breath. 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 The patient did have a full work-up in our ED last night and was sent home on an acid norma for GERD. The patient reports she did report a sore throat during both visits yesterday, but did not have her throat swabbed. The patient reports she has not take any [id number] medications for her current symptoms. The patient has not attempted to get into the clinic for a clinic visit. 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 OF REVENUE: Denies: Acetaminophen, NSAIDS - Related Data Allergies Allergy/AdvReac Type Severity Reaction Status Date / Time acetaminophen [From Percocet] Allergy Itching Verified 12/24/18 10:12 oxycodone HCl [From Percocet] Allergy Itching Verified 12/24/18 10:12 Home Meds: Home Meds Albuterol Sulfate [Albuterol Sulfate Hfa] 2 puff INH ASDIRECTED PRN 12/24/18 [ History] Furosemide 20 mg PO DAILY 12/24/18 [History] Ondansetron [Zofran] 4 mg PO ASDIRECTED PRN 12/24/18 [History] Potassium Chloride 20 mg PO DAILY 12/24/18 [History] Past Medical History - Past Health History Medical/Surgical History: Denies Medical/Surgical History HEENT History: Reports: None Cardiovascular History: Reports: Hypertension Respiratory History: Reports: Bronchitis, Recurrent, Sleep Apnea Other Respiratory History: CPAP Gastrointestinal History: Reports: None Genitourinary History: Reports: None 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 Social & Family History - Family History Family Medical History: Noncontributory - Caffeine Use Caffeine Use: Reports: None - Living Situation & Occupation Living situation: Reports: with Family Occupation: Employed ED ROS ENT - Review of Systems Review Of Systems: ROS reveals no pertinent complaints other than HPI. ED EXAM, ENT - Physical Exam Exam: See Below Exam Limited By: No Limitations General Appearance: Alert, WD/WN, Mild Distress, Obese Eye Exam: Bilateral Eye: EOMI, Normal Inspection, PERRL Ears: Normal External Exam, Normal Canal, Hearing Grossly Normal, Normal TMs Mouth/Throat: Pharyngeal Erythema, Tonsillar Erythema, Tonsillar Exudates ( right sided) Head: Atraumatic, Normocephalic Neck: Full Range of Motion, Lymphadenopathy (R) Respiratory/Chest: No Respiratory Distress, Lungs Clear, Normal Breath Sounds, No Accessory Muscle Use, Chest Non-Tender Cardiovascular: Normal Peripheral Pulses, Regular Rate, Rhythm, No Edema, No Gallop, No JVD, No Murmur, No Rub GI/Abdominal: Normal Bowel Sounds, Soft, Non-Tender, No Organomegaly, No Distention, No Abnormal Bruit, No Mass (Female) Exam: Deferred Rectal (Female) Exam: Deferred Back: Normal Inspection, Full Range of Motion Extremities: Normal Inspection, Normal Range of Motion, Non-Tender, No Pedal Edema, Normal Capillary Refill Neurological: Alert, Oriented, CN II-XII Intact, Normal Cognition, Normal Gait, Normal Reflexes, No Motor/Sensory Deficits Psychiatric: Normal Affect, Normal Mood Skin: Warm, Dry, Intact, Normal Color, No Rash Lymphatic: No Adenopathy Course - Orders/Labs/Meds Orders: Active Orders 24 hr Category Date Time Status STREP SCRN A RAPID W CULT CONF [RM] Stat Lab 12/24/18 10:30 Ordered Meds: Medications Discontinued Medications Generic Name Dose Route Start Last Admin Trade Name Freq PRN Reason Stop Dose Admin Penicillin G Procaine/Benzathine 1.2 millunits 12/24/18 11:08 Bicillin C-R 600/600 IM 12/24/18 11:09 ONETIME ONE Departure - Departure Time of Disposition: 11:10 Disposition: Home, Self-Care 01 Condition: Fair Clinical Impression: Strep throat - Discharge Information *PRESCRIPTION DRUG MONITORING PROGRAM REVIEWED*: Not Applicable *COPY OF PRESCRIPTION DRUG MONITORING REPORT IN PATIENT RONA: Not Applicable Instructions: Strep Throat, Smxs-gy-[id number] Forms: ED Department Discharge Care Plan Goals: The patient was advised of the examination and lab results during the visit. The patient was given an injection of Bicillin while in the ED. The patient was discharged with a script for Azithromycin (250 mg) #6 to take 2 by mouth on day 1 and 1 by mouth on days 2-5. The patient should be encouraged to increase their oral fluid intake over the next 48 hours. The patient may continue to use cpis-ejd-[id number] medications (Tylenol or ibuprofen) for temporary symptom relief. If the patient has any additional symptoms or concerns, the patient should either return to the emergency department or follow-up with his primary care facility. - My Orders Last 24 Hours: My Active Orders 12/24/18 10:30 STREP SCRN A RAPID W CULT CONF [RM] Stat - Assessment/Plan Last 24 Hours: My Active Orders 12/24/18 10:30 STREP SCRN A RAPID W CULT CONF [RM] Stat
[2018-12-24] MEDS ORDERED: Penicillin G Benzathine/Procaine 600-600 1.2 Millunits/2 ML Syringe IM ONE (11:08)
[2018-12-24 11:14] VITALS: BP 115/72
== END 2018-12-24 11:46 | disposition home or self-care (01) ==
LOC: DL.ED 10:08
DX: J02.0 Streptococcal pharyngitis (principal); I10 Essential (primary) hypertension; Z88.8 Allergy status to other drugs, medicaments and biological substances; Z79.899 Other long term (current) drug therapy
CPT/HCPCS: 87430; 96372; 99283; J0558

== ENCOUNTER → 2019-01-22 | Outpatient (CLI) | payer BC, MEDICAID | LOC: DL.US 10:09 | PROVIDERS: ATTEND Nurse Practitioner Family | DX: I10 Essential (primary) hypertension (principal); R22.43 Localized swelling, mass and lump, lower limb, bilateral; I51.7 Cardiomegaly | CPT/HCPCS: 93306 ==

== ENCOUNTER 2019-08-07 12:05 | Emergency (ER) | payer BC ==
[2019-08-07 12:18] VITALS: BP 129/85; PULSE 83
--- NOTE | 2019-08-07 13:53 | EDM.PDOC ---
ED HPI GENERAL MEDICAL PROBLEM - General Chief Complaint: Respiratory Problem Stated Complaint: COUGH FOR WEEK Time Seen by Provider: 08/07/19 13:53 Source of Information: Reports: Patient, RN, RN Notes Reviewed History Limitations: Reports: No Limitations - History of Present Illness INITIAL COMMENTS - FREE TEXT/NARRATIVE: patient presents to ER with complaint of cough for 1 week. Patient states she has had sinus congestion and headache for about 1 month has been seen in the clinic twice, and started on 2 different antibiotics. The first time the patient was on Augmentin, the second time she was started on doxycycline. Patient complains of sore throat, headache, cough, fever, chills. Onset: Gradual Throat Pain Score (Numeric/FACES): 9 - Related Data Allergies Allergy/AdvReac Type Severity Reaction Status Date / Time acetaminophen [From Percocet] Allergy Itching Verified 08/07/19 12:18 oxycodone HCl [From Percocet] Allergy Itching Verified 08/07/19 12:18 Home Meds: Home Meds Albuterol Sulfate [Albuterol Sulfate Hfa] 2 puff INH ASDIRECTED PRN 12/24/18 [ History] Furosemide 20 mg PO DAILY 12/24/18 [History] Lisinopril 10 mg PO DAILY 03/19/19 [History] Past Medical History - Past Health History Medical/Surgical History: Denies Medical/Surgical History HEENT History: Reports: None Cardiovascular History: Reports: Hypertension Respiratory History: Reports: Bronchitis, Recurrent, Sleep Apnea Other Respiratory History: CPAP Gastrointestinal History: Reports: None Genitourinary History: Reports: None PROCESS ASSISTANT 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 Social & Family History - Family History Family Medical History: Noncontributory - Tobacco Use Smoking Status *Q: Never Smoker Second Hand Smoke Exposure: No - Caffeine Use Caffeine Use: Reports: Coffee - Recreational Drug Use Recreational Drug Use: No - Living Situation & Occupation Living situation: Reports: with Family Occupation: Employed ED ROS GENERAL - Review of Systems Review Of Systems: Comprehensive ROS is negative, except as noted in HPI. ED EXAM, GENERAL - Physical Exam Exam: See Below Exam Limited By: No Limitations General Appearance: Alert, WD/WN, No Apparent Distress Eye Exam: Bilateral Eye: EOMI, Normal Inspection Ears: Normal External Exam, Normal Canal, Hearing Grossly Normal, Normal TMs Nose: Normal Inspection, Normal Mucosa, No Blood Throat/Mouth: Normal Inspection, Normal Lips, Normal Teeth, Normal Gums, Normal Voice, No Airway Compromise, Other (tonsils +2 bilaterally) Head: Atraumatic, Normocephalic Neck: Normal Inspection, Supple, Non-Tender, Full Range of Motion Respiratory/Chest: No Respiratory Distress, No Accessory Muscle Use, Chest Non- Tender, Crackles (bases bilaterally) Cardiovascular: Normal Peripheral Pulses, Regular Rate, Rhythm, No Edema, No Gallop, No JVD, No Murmur, No Rub Peripheral Pulses: 2+: Radial (L), Radial (R) GI/Abdominal: Normal Bowel Sounds, Soft, Non-Tender (Female) Exam: Deferred Rectal (Female) Exam: Deferred Back Exam: Normal Inspection, Full Range of Motion, NT Extremities: Normal Inspection, Normal Range of Motion, Non-Tender, Normal Capillary Refill, No Pedal Edema Neurological: Alert, Oriented, CN II-XII Intact, Normal Cognition, Normal Gait, Normal Reflexes, No Motor/Sensory Deficits Psychiatric: Normal Affect, Normal Mood Skin Exam: Warm, Dry, Intact, Normal Color, No Rash Lymphatic: No Adenopathy Course - Vital Signs Last Recorded V/S: Last Vital Signs Temp 99.9 F 08/07/19 12:12 Pulse 83 08/07/19 12:12 Resp 18 08/07/19 12:12 BP 129/85 08/07/19 12:12 Pulse Ox 98 08/07/19 12:12 - Orders/Labs/Meds Orders: Active Orders 24 hr Category Date Time Status Chest 2V [CR] Urgent Exams 08/07/19 13:42 Taken Max Facial Sinus wo Cont [CT] Urgent Exams 08/07/19 14:36 Taken CULTURE STREP A CONFIRMATION [RM] Stat Lab 08/07/19 12:23 Results STREP SCRN A RAPID W CULT CONF [RM] Stat Lab 08/07/19 12:23 Results Labs: Laboratory Tests 08/07/19 08/07/19 Range/Units 13:53 13:53 WBC 8.0 (5.0-10.0) 10^3/uL RBC 4.59 (4.2-5.4) 10^6/uL Hgb 11.9 L (12.0-16.0) g/dL Hct 37.4 (37.0-47.0) % MCV 81.5 (80-100) fL MCH 25.9 L (27.0-34.0) pg MCHC 31.8 L (33.0-35.0) g/dL Plt Count 394 (150-450) 10^3/uL Neut % (Auto) 69.2 (42.2-75.2) % Lymph % (Auto) 19.0 L (20.5-50.1) % [place] % (Auto) 7.1 (2-8) % Eos % (Auto) 4.4 H (1.0-3.0) % Baso % (Auto) 0.3 (0.0-1.0) % Sodium 137 (135-145) mmol/L Potassium 3.8 (3.6-5.0) mmol/L Chloride 107 (101-111) mmol/L Carbon Dioxide 24.0 (21.0-31.0) mmol/L Anion Gap 9.8 BUN 17 (7-18) mg/dL Creatinine 0.6 (0.6-1.3) mg/dL Est Cr Clr Drug Dosing 126.69 mL/min Estimated GFR (MDRD) > 60 BUN/Creatinine Ratio 28.33 Glucose 122 H (74-105) mg/dL Calcium 8.4 (8.4-10.2) mg/dl Total Bilirubin 0.5 (0.2-1.0) mg/dL AST 18 (10-42) IU/L ALT 19 (10-60) IU/L Alkaline Phosphatase 69 (42-121) IU/L Total Protein 7.2 (6.7-8.2) g/dl Albumin 3.2 (3.2-5.5) g/dl Globulin 4.0 Albumin/Globulin Ratio 0.80 - Radiology Interpretation Free Text/Narrative:: Chest xray: FINDINGS: Lungs: Unremarkable. No consolidation. Pleural space: Unremarkable. No pleural effusion. No pneumothorax. Heart/Mediastinum: Unremarkable. No cardiomegaly. Bones/joints: Unremarkable. IMPRESSION: No acute cardiopulmonary disease. Thank you for allowing us to participate in the care of your patient. Dictated and Authenticated by: Kevin Alfonso MD 08/07/2019 2:24 PM Central Time ([place] & [place]) CT max/face/sinus wo contrast: COMPARISON: No relevant prior exams. FINDINGS: Frontal sinuses: Normal. No air-fluid levels. Ethmoid air cells: Normal. No air-fluid levels. Sphenoid sinuses: Normal. No air-fluid levels. Maxillary sinuses: Normal. No air-fluid levels. Ostiomeatal units are patent. Orbits: Orbits are normal. Globes are unremarkable. Nasal cavity/Septum: Unremarkable. Soft tissues: Unremarkable. Bones/joints: Unremarkable. IMPRESSION: Unremarkable paranasal sinuses. Thank you for allowing us to participate in the care of your patient. See rad report Departure - Departure Time of Disposition: 15:38 Disposition: Home, Self-Care 01 Condition: Fair Clinical Impression: Viral illness - Discharge Information *PRESCRIPTION DRUG MONITORING PROGRAM REVIEWED*: No *COPY OF PRESCRIPTION DRUG MONITORING REPORT IN PATIENT RONA: No Instructions: Viral Respiratory Infection, [id number], Upper Respiratory Infection, Adult, [id number] Referrals: Mary Ellen Ambrocio NP [Primary Care Provider] - Forms: ED Department Discharge Additional Instructions: Drink plenty of fluids May use Tylenol and/or Ibuprofen as directed for pain/fever Rest Follow up with your primary care facility Sepsis Event Note - Evaluation Sepsis Screening Result: No Definite Risk - Focused Exam Vital Signs: Vital Signs Temp Pulse Resp BP Pulse Ox 08/07/19 12:12 99.9 F 83 18 129/85 98 Date Exam was Performed: 08/07/19 Time Exam was Performed: 16:09 - My Orders Last 24 Hours: My Active Orders 08/07/19 12:23 CULTURE STREP A CONFIRMATION [RM] Stat STREP SCRN A RAPID W CULT CONF [RM] Stat 08/07/19 13:42 Chest 2V [CR] Urgent 08/07/19 14:36 Max Facial Sinus wo Cont [CT] Urgent - Assessment/Plan Last 24 Hours: My Active Orders 08/07/19 12:23 CULTURE STREP A CONFIRMATION [RM] Stat STREP SCRN A RAPID W CULT CONF [RM] Stat 08/07/19 13:42 Chest 2V [CR] Urgent 08/07/19 14:36 Max Facial Sinus wo Cont [CT] Urgent
[2019-08-07 14:39] LABS: ANION GAP 9.8; CHLORIDE,CL 107 mmol/L (101-111); SODIUM,NA 137 mmol/L (135-145)
== END 2019-08-07 16:00 | disposition home or self-care (01) ==
LOC: DL.ED 12:05
DX: B34.9 Viral infection, unspecified (principal); I10 Essential (primary) hypertension; Z88.6 Allergy status to analgesic agent; Z88.5 Allergy status to narcotic agent; Z79.899 Other long term (current) drug therapy
CPT/HCPCS: 36415; 70486; 71046; 80053; 85025; 87081; 87430; 87804; 99284-25

== ENCOUNTER 2019-10-24 19:14 | Emergency (ER) | payer SELFPAY ==
[2019-10-24 20:18] VITALS: BP 112/66; PULSE 100
[2019-10-24 21:01] LABS: ANION GAP 12.8 mEq/L (7-13); CHLORIDE,CL 103 mmol/L (98-107); SODIUM,NA 138 mmol/L (136-145)
--- NOTE | 2019-10-24 21:12 | EDM.PDOC ---
ED HPI GENERAL MEDICAL PROBLEM - General Chief Complaint: Gastrointestinal Problem Stated Complaint: FOOD POSIONING POSSIBLE PER PT Time Seen by Provider: 10/24/19 20:45 Source of Information: Reports: Patient History Limitations: Reports: No Limitations - History of Present Illness INITIAL COMMENTS - FREE TEXT/NARRATIVE: ate partially cooked an melt last night, sick after with vomiting and diarrhea none since this am, still feels " sick, some cramping. No fevers. Upper Abdomen Pain Score (Numeric/FACES): 8 - Related Data Allergies Allergy/AdvReac Type Severity Reaction Status Date / Time acetaminophen [From Percocet] Allergy Itching Verified 10/24/19 20:19 oxycodone HCl [From Percocet] Allergy Itching Verified 10/24/19 20:19 Home Meds: Home Meds Albuterol Sulfate [Albuterol Sulfate Hfa] 2 puff INH ASDIRECTED PRN 12/24/18 [ History] Furosemide 20 mg PO DAILY 12/24/18 [History] Lisinopril 10 mg PO DAILY 03/19/19 [History] Past Medical History - Past Health History Medical/Surgical History: Denies Medical/Surgical History HEENT History: Reports: None Cardiovascular History: Reports: Hypertension Respiratory History: Reports: Bronchitis, Recurrent, Sleep Apnea Other Respiratory History: CPAP Gastrointestinal History: Reports: None Genitourinary History: Reports: None 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 Social & Family History - Family History Family Medical History: Noncontributory - Tobacco Use Smoking Status *Q: Never Smoker - Caffeine Use Caffeine Use: Reports: Coffee - Recreational Drug Use Recreational Drug Use: No - Living Situation & Occupation Living situation: Reports: with Family Occupation: Employed ED ROS GENERAL - Review of Systems Review Of Systems: Comprehensive ROS is negative, except as noted in HPI. ED EXAM, GI/ABD - Physical Exam Exam: See Below Exam Limited By: No Limitations General Appearance: Alert, Mild Distress Eyes: Bilateral: EOMI Ears: Normal External Exam, Hearing Grossly Normal Nose: Normal Inspection Throat/Mouth: Normal Inspection Head: Atraumatic, Normocephalic Neck: Normal Inspection Respiratory/Chest: No Respiratory Distress, Lungs Clear, Normal Breath Sounds Cardiovascular: Normal Peripheral Pulses, Regular Rate, Rhythm GI/Abdominal Exam: Normal Bowel Sounds, Soft, Tender (mild general). No: Distended, Guarding, Rigid Back Exam: Full Range of Motion Neurological: Alert, Oriented, Normal Cognition Psychiatric: Normal Affect, Normal Mood Skin Exam: Warm, Dry, Intact, Normal Color Course - Vital Signs Last Recorded V/S: Last Vital Signs Temp 96.7 F L 10/24/19 20:15 Pulse 100 10/24/19 20:15 Resp 16 10/24/19 20:15 BP 112/66 10/24/19 20:15 Pulse Ox 94 L 10/24/19 20:15 - Orders/Labs/Meds Labs: Laboratory Tests 10/24/19 10/24/19 Range/Units 20:37 20:37 WBC 8.9 (5.0-10.0) 10^3/uL RBC 5.01 (4.2-5.4) 10^6/uL Hgb 13.0 (12.0-16.0) g/dL Hct 40.8 (37.0-47.0) % MCV 81.4 (80-100) fL MCH 25.9 L (27.0-34.0) pg MCHC 31.9 L (33.0-35.0) g/dL Plt Count 391 (150-450) 10^3/uL Neut % (Auto) 79.2 H (42.2-75.2) % Lymph % (Auto) 13.1 L (20.5-50.1) % [place] % (Auto) 6.2 (2-8) % Eos % (Auto) 1.3 (1.0-3.0) % Baso % (Auto) 0.2 (0.0-1.0) % Sodium 138 (136-145) mmol/L Potassium 3.8 (3.5-5.1) mmol/L Chloride 103 (98-107) mmol/L Carbon Dioxide 26 (21-32) mmol/L Anion Gap 12.8 (7-13) mEq/L BUN 15 (7-18) mg/dL Creatinine 0.77 (0.55-1.02) mg/dL Est Cr Clr Drug Dosing 95.41 mL/min Estimated GFR (MDRD) > 60 BUN/Creatinine Ratio 19.5 (No establ ref range) Glucose 103 H (74-99) mg/dL Calcium 7.6 L (8.5-10.1) mg/dL Total Bilirubin 0.6 (0.2-1.0) mg/dL AST 20 (15-37) U/L ALT 33 (14-59) U/L Alkaline Phosphatase 103 (46-116) U/L Total Protein 8.0 (6.4-8.2) g/dL Albumin 3.3 L (3.4-5.0) g/dL Globulin 4.7 Albumin/Globulin Ratio 0.70 Departure - Departure Time of Disposition: 21:08 Disposition: Home, Self-Care 01 Condition: Good Clinical Impression: Gastroenteritis - Discharge Information *PRESCRIPTION DRUG MONITORING PROGRAM REVIEWED*: No *COPY OF PRESCRIPTION DRUG MONITORING REPORT IN PATIENT RONA: No Instructions: Nausea and Vomiting, Adult, [id number] Forms: ED Department Discharge Additional Instructions: clear liquids only tonight, small amounts more frequenlty If tolerating fluids in am begin soft bland diet in small amounts, toast apple sauce advance as tolerated follow up if severe pain, repeated vomiting blood or bloody diarrhea Sepsis Event Note - Evaluation Sepsis Screening Result: No Definite Risk - Focused Exam Vital Signs: Vital Signs Temp Pulse Resp BP Pulse Ox 10/24/19 20:15 96.7 F L 100 16 112/66 94 L Date Exam was Performed: 10/25/19 Time Exam was Performed: 05:44
== END 2019-10-24 21:20 | disposition home or self-care (01) ==
LOC: DL.ED 19:14
DX: K52.9 Noninfective gastroenteritis and colitis, unspecified (principal); I10 Essential (primary) hypertension; Z88.8 Allergy status to other drugs, medicaments and biological substances; Z88.5 Allergy status to narcotic agent; Z79.899 Other long term (current) drug therapy
CPT/HCPCS: 36415; 80053; 85025; 99282; 99284

== ENCOUNTER 2019-11-20 06:16 | Day surgery (SDC) | payer OTHER ==
[2019-11-20] MEDS ORDERED: Midazolam 1 MG/ML 2 ML SDV IV ONE ×7 (06:17→07:42)
[2019-11-20] MEDS ORDERED: fentaNYL 100 MCG/2 ML SDV IV ONE ×5 (06:17→07:49)
[2019-11-20] MEDS ORDERED: Midazolam 1 MG/ML 2 ML SDV ONE (06:56)
[2019-11-20] MEDS ORDERED: fentaNYL 100 MCG/2 ML SDV ONE (06:56)
[2019-11-20] MEDS ORDERED: Dextrose 5%-0.45% NaCl 1,000 ML IV SCH ×2 (07:00→08:00)
[2019-11-20] MEDS ORDERED: Sodium Chloride 0.9% 10 ML Syringe FLUSH PRN (07:59)
[2019-11-20 09:51] VITALS: BP 131/72; PULSE 65
--- NOTE | 2019-11-20 12:38 | OR ---
DATE: 11/20/2019 PROCEDURE: Total colonoscopy. INSTRUMENT USED: PCF-H190DL Olympus video colonoscope. PREMEDICATIONS: Fentanyl 150 mcg intravenous, Versed 4 mg intravenous, nasal O2 cannula. The procedure was done under pulse oximetry, BP recording, and cardiac specialist. INDICATION: The patient with rectal bleeding, colonoscopic examination is done for detection of any polypoid lesions and removal, endoscopic hemostasis therapy if needed. DESCRIPTION OF PROCEDURE: Initial rectal exam was unremarkable. Rigid anoscopy showed moderate-sized internal hemorrhoids without bleeding from them. The colonoscope was passed with ease. Scattered diverticula were noted in the distal left colon along with some deformity. The scope was passed with ease in the ileocecal area. Photographs were taken of the cecum showing large amount of solid fecal material obscuring the views. No bleeding was noted from any of the visualized areas at the commencement of the examination. There was large amount of scattered solid and liquid fecal material scattered all around the colon, bowel preparation [place] scale 1 in all the areas, total score 3. No stricture. No vascular ectasia. No large isolated ulcerations seen. No evidence of diffuse inflammatory bowel disease in the form of friability, contact bleeding, or ulcerations. No polyp or tumor mass identified. Probing the proximal sides of folds and flexures using adequate distention and clearing up the stool material, withdrawal of the scope was made. Cecum to rectum time over 6 minutes. No bleeding was noted from any of the visualized areas at the completion of the examination. IMPRESSION: 1. Internal hemorrhoids. 2. Diverticulosis. The patient tolerated the procedure well. [facility] /[id number]
== END 2019-11-20 09:55 | disposition home or self-care (01) ==
LOC: DL.ENDO 06:16
PROVIDERS: ATTEND Internal Medicine Gastroenterology
DX: K64.8 Other hemorrhoids (principal); K57.31 Diverticulosis of large intestine without perforation or abscess with bleeding; E66.09 Other obesity due to excess calories; I10 Essential (primary) hypertension; M19.90 Unspecified osteoarthritis, unspecified site; I87.303 Chronic venous hypertension (idiopathic) without complications of bilateral lower extremity; Z88.6 Allergy status to analgesic agent; Z68.41 Body mass index [BMI] 40.0-44.9, adult
CPT/HCPCS: 45378; J2250; J3010; J7042; G0121

== ENCOUNTER 2020-04-03 14:12 | Emergency (ER) | payer MEDICAID, OTHER ==
[2020-04-03 14:45] VITALS: PULSE 80
[2020-04-03 15:03] VITALS: BP 144/74
--- NOTE | 2020-04-03 16:29 | CR ---
PROCEDURE INFORMATION: Exam: XR Lumbosacral Spine, 2 or 3 Views Exam date and time: 04/03/2020 4:13 PM Age: 49 years old Clinical indication: Other: No trauma; Additional info: Low back pain TECHNIQUE: Imaging protocol: XR of the lumbosacral spine, 2 or 3 views. COMPARISON: No relevant prior studies available. FINDINGS: Vertebrae: There are moderate degenerative changes within the spine. There are no suspicious lytic or osteosclerotic lesions. There are no vertebral compression fractures. Normal alignment. Soft tissues: Unremarkable. IMPRESSION: 1. No acute findings. 2. There are moderate degenerative changes within the spine.
--- NOTE | 2020-04-03 17:01 | EDM.PDOC ---
Scribed by Chetna William 04/03/20 1700 for Marcy Park MD ED HPI GENERAL MEDICAL PROBLEM - General Chief Complaint: Gastrointestinal Problem Stated Complaint: LOWER BACK PAIN BLOODY STOOL Time Seen by Provider: 04/03/20 15:49 Source of Information: Reports: Patient, RN, RN Notes Reviewed History Limitations: Reports: No Limitations - History of Present Illness INITIAL COMMENTS - FREE TEXT/NARRATIVE: Patient presents to ED for low back pain. It started several years ago and has been coming and on. She denies any numbness or tingling in her legs. She denies any radiation of the pain. The pain is in her mid lower back and will get up to a 10/10 at its worst. She has not seen anybody for this previously. Patient also notes a recent bout of blood in the stool. She denies any constipation and reports twice daily bowel movements. She has had this before and had a colonoscopy which found hemorrhoids. She noted the blood today, it was only a little and was bright red. Patient denies any abdominal pain. Patient denies any recent screening of stool. Onset: Gradual Duration: Constant Location: Reports: Back Quality: Reports: Ache Severity: Moderate Improves with: Reports: None Worsens with: Reports: None Associated Symptoms: Reports: No Other Symptoms Back Pain Score (Numeric/FACES): 9 - Related Data Allergies Allergy/AdvReac Type Severity Reaction Status Date / Time acetaminophen [From Percocet] Allergy Itching Unverified 04/03/20 14:48 oxycodone HCl [From Percocet] Allergy Itching Verified 04/03/20 14:48 Home Meds: Home Meds Albuterol Sulfate [Albuterol Sulfate Hfa] 2 puff INH QID PRN 12/24/18 [History] Furosemide 20 mg PO DAILY 12/24/18 [History] Lisinopril 10 mg PO DAILY 03/19/19 [History] Cetirizine HCl [Zyrtec] 10 mg PO DAILY 11/19/19 [History] LORazepam [Lorazepam] 0.5 mg PO BID PRN 11/19/19 [History] Olopatadine [Pataday 0.2% Ophth Soln] 1 drop EYEBOTH DAILY PRN 11/19/19 [History] Ondansetron [Zofran ODT] 4 mg PO Q8H PRN 11/19/19 [History] Pantoprazole Sodium [Protonix] 40 mg PO DAILY 11/19/19 [History] Past Medical History - Past Health History Medical/Surgical History: Denies Medical/Surgical History HEENT History: Reports: None Cardiovascular History: Reports: Hypertension Respiratory History: Reports: Asthma, Bronchitis, Recurrent, Sleep Apnea Other Respiratory History: CPAP Gastrointestinal History: Reports: None, Hemorrhoids Genitourinary History: Reports: None 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 Musculoskeletal History: Reports: Arthritis, Osteoarthritis Neurological History: Reports: None Psychiatric History: Reports: None Endocrine/Metabolic History: Reports: None Hematologic History: Reports: None Immunologic History: Reports: None Oncologic (Cancer) History: Reports: None Dermatologic History: Reports: None - Infectious Disease History Infectious Disease History: Reports: None - Past Surgical History HEENT Surgical History: Reports: None Cardiovascular Surgical History: Reports: None Respiratory Surgical History: Reports: None GI Surgical History: Reports: Colonoscopy Female Surgical History: Reports: None Musculoskeletal Surgical History: Reports: Other (See Below) Other Musculoskeletal Surgeries/Procedures:: foot surg. Social & Family History - Family History Family Medical History: Noncontributory - Tobacco Use Smoking Status *Q: Never Smoker - Caffeine Use Caffeine Use: Reports: Coffee, Soda Caffeine Use Comment: 16 oz daily - Recreational Drug Use Recreational Drug Use: No - Living Situation & Occupation Living situation: Reports: with Family Occupation: Employed ED ROS GENERAL - Review of Systems Review Of Systems: Comprehensive ROS is negative, except as noted in HPI. ED EXAM, UPPER BACK/NECK PAIN - Physical Exam Exam: See Below Exam Limited By: No Limitations General Appearance: Alert, WD/WN, No Apparent Distress Ears Exam: Normal External Exam, Normal Canal, Hearing Grossly Normal, Normal TMs Nose Exam: Normal Inspection, Normal Mucousa, No Blood Throat/Mouth Exam: Normal Inspection, Normal Lips, Normal Teeth, Normal Gums, Normal Oropharynx, Normal Voice, No Airway Compromise Head Exam: Atraumatic, Normocephalic Neck Exam: Non-Tender, Full Range of Motion, Normal Alignment, Normal Inspection Cardiovascular/Respiratory: Regular Rate, Rhythm, No M/R/G, Normal Peripheral Pulses, No JVD, Normal Breath Sounds, No Respiratory Distress GI/Abdominal: Normal Bowel Sounds, Soft, Non-Tender, No Organomegaly, No Distention, No Abnormal Bruit, No Mass (Female) Exam: Deferred Rectal (Female) Exam: Deferred Back Exam: Other (lower lumbar vertebral tenderness to palpation, more midline than on the side. No significant paraspinal muscle spasms. Negative straight leg test. ) Extremities: Normal Inspection Neurologic: Alert, Oriented x 3 Psychiatric: Normal Affect, Normal Mood Skin Exam: Normal Color, Warm/Dry Lymphatic: No Adenopathy Course - Vital Signs Last Recorded V/S: Last Vital Signs Temp 97.9 F 04/03/20 14:44 Pulse 80 04/03/20 14:44 Resp 16 04/03/20 14:44 BP 144/74 H 04/03/20 14:55 Pulse Ox 98 04/03/20 14:44 Departure - Departure Time of Disposition: 17:00 Disposition: Home, Self-Care 01 Condition: Good Clinical Impression: Back pain Qualifiers: Back pain location: low back pain Chronicity: chronic Back pain laterality: midline Sciatica presence: without sciatica Qualified Code(s): M54.5 - Low back pain; G89.29 - Other chronic pain - Discharge Information *PRESCRIPTION DRUG MONITORING PROGRAM REVIEWED*: Not Applicable *COPY OF PRESCRIPTION DRUG MONITORING REPORT IN PATIENT RONA: Not Applicable Forms: ED Department Discharge Sepsis Event Note (ED) - Evaluation Sepsis Screening Result: No Definite Risk - Focused Exam Vital Signs: Vital Signs Temp Pulse Resp BP Pulse Ox 04/03/20 14:55 144/74 H 04/03/20 14:44 97.9 F 80 16 160/80 H 98 I have read and agree with the documentation that has been completed regarding this visit. By signing this record, I attest that the documentation was completed in my physical presence and is an accurate record of the encounter.
[2020-04-03] MEDS ORDERED: methylPREDNISolone Sodium Succinate 125 MG/2 ML SDV IM ONE (17:03)
== END 2020-04-03 17:30 | disposition home or self-care (01) ==
LOC: DL.ED 14:12
DX: M54.5 Low back pain (principal); G89.29 Other chronic pain; J45.909 Unspecified asthma, uncomplicated; Z88.5 Allergy status to narcotic agent; Z79.899 Other long term (current) drug therapy
CPT/HCPCS: 72100; 96372; 99283; J2930

== ENCOUNTER 2020-05-16 18:56 | Emergency (ER) | payer MEDICAID, OTHER ==
[2020-05-16 19:40] VITALS: BP 150/89; PULSE 87
--- NOTE | 2020-05-16 21:04 | EDM.PDOC ---
ED HPI GENERAL MEDICAL PROBLEM - General Chief Complaint: Lower Extremity Injury/Pain Stated Complaint: LEFT FOOT SWOLLEN Time Seen by Provider: 05/16/20 20:55 Source of Information: Reports: Patient History Limitations: Reports: No Limitations - History of Present Illness INITIAL COMMENTS - FREE TEXT/NARRATIVE: This 49 yo female patient reports to the ED with swelling in her left lower extremity. The patient reports she noticed the swelling over the past 2 months. The patient reports she did see her primary care facility last week and was started on a water pill. The patient reports she has been taking the medication, but has noticed increased swelling. The patient has not followed up with her primary care facility since her visit 1 week ago. The patient reports she has been up walking around more today, but attempts to elevate her legs when sleeping (in a bed). The patient reports she did have a previous injury to the foot/ankle, but that was 6 years ago. The patient denies any recent trauma or injuries. Onset: Unknown/Unsure Duration: Week(s):, Constant, Getting Worse Location: Reports: Lower Extremity, Left Quality: Reports: Dull Severity: Moderate Improves with: Reports: Rest (and elvation) Worsens with: Reports: Movement Associated Symptoms: Reports: No Other Symptoms Left Lower Leg Pain Score (Numeric/FACES): 7 - Related Data Allergies Allergy/AdvReac Type Severity Reaction Status Date / Time acetaminophen [From Percocet] Allergy Itching Verified 05/16/20 19:40 hydrocodone Allergy Rash Verified 05/16/20 19:40 oxycodone HCl [From Percocet] Allergy Itching Verified 05/16/20 19:40 Home Meds: Home Meds Albuterol Sulfate [Albuterol Sulfate Hfa] 2 puff INH QID PRN 12/24/18 [History] Furosemide 20 mg PO DAILY 12/24/18 [History] Lisinopril 10 mg PO DAILY 03/19/19 [History] Cetirizine HCl [Zyrtec] 10 mg PO DAILY 11/19/19 [History] LORazepam [Lorazepam] 0.5 mg PO BID PRN 11/19/19 [History] Olopatadine [Pataday 0.2% Ophth Soln] 1 drop EYEBOTH DAILY PRN 11/19/19 [History] Ondansetron [Zofran ODT] 4 mg PO Q8H PRN 11/19/19 [History] Pantoprazole Sodium [Protonix] 40 mg PO DAILY 11/19/19 [History] Past Medical History - Past Health History Medical/Surgical History: Denies Medical/Surgical History HEENT History: Reports: None Cardiovascular History: Reports: Hypertension Respiratory History: Reports: Asthma, Bronchitis, Recurrent, Sleep Apnea Other Respiratory History: CPAP Gastrointestinal History: Reports: None, Hemorrhoids Genitourinary History: Reports: None 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 Musculoskeletal History: Reports: Arthritis, Osteoarthritis Neurological History: Reports: None Psychiatric History: Reports: None Endocrine/Metabolic History: Reports: None Hematologic History: Reports: None Immunologic History: Reports: None Oncologic (Cancer) History: Reports: None Dermatologic History: Reports: None - Infectious Disease History Infectious Disease History: Reports: None - Past Surgical History HEENT Surgical History: Reports: None Cardiovascular Surgical History: Reports: None Respiratory Surgical History: Reports: None GI Surgical History: Reports: Colonoscopy Female Surgical History: Reports: None Musculoskeletal Surgical History: Reports: Other (See Below) Other Musculoskeletal Surgeries/Procedures:: foot surg. Social & Family History - Family History Family Medical History: Noncontributory - Tobacco Use Smoking Status *Q: Never Smoker Second Hand Smoke Exposure: No - Caffeine Use Caffeine Use: Reports: Coffee Caffeine Use Comment: 1 cup of coffee in the morning - Recreational Drug Use Recreational Drug Use: No - Living Situation & Occupation Living situation: Reports: with Family Occupation: Employed Review of Systems - Review of Systems Review Of Systems: Comprehensive ROS is negative, except as noted in HPI. ED EXAM, GENERAL - Physical Exam Exam: See Below Exam Limited By: No Limitations General Appearance: Alert, WD/WN, No Apparent Distress, Obese Eye Exam: Bilateral Eye: EOMI, Normal Inspection, PERRL Ears: Normal External Exam, Normal Canal, Hearing Grossly Normal, Normal TMs Nose: Normal Inspection, Normal Mucosa, No Blood Throat/Mouth: Normal Inspection, Normal Lips, Normal Teeth, Normal Gums, Normal Oropharynx, Normal Voice, No Airway Compromise Head: Atraumatic, Normocephalic Neck: Normal Inspection, Supple, Non-Tender, Full Range of Motion Respiratory/Chest: No Respiratory Distress, Lungs Clear, Normal Breath Sounds, No Accessory Muscle Use, Chest Non-Tender Cardiovascular: Normal Peripheral Pulses, Regular Rate, Rhythm, No Edema, No Gallop, No JVD, No Murmur, No Rub GI/Abdominal: Normal Bowel Sounds, Soft, Non-Tender, No Organomegaly, No Distention, No Abnormal Bruit, No Mass, Other (obese) (Female) Exam: Deferred Rectal (Female) Exam: Deferred Back Exam: Normal Inspection, Full Range of Motion, NT Extremities: Pedal Edema (left lower extremity) Neurological: Alert, Oriented, CN II-XII Intact, Normal Cognition, Normal Gait, Normal Reflexes, No Motor/Sensory Deficits Psychiatric: Normal Affect, Normal Mood Skin Exam: Warm, Dry, Intact, Normal Color, No Rash Lymphatic: No Adenopathy Course - Vital Signs Last Recorded V/S: Last Vital Signs Temp 35.8 C L 05/16/20 19:31 Pulse 87 05/16/20 19:31 Resp 18 05/16/20 19:31 BP 150/89 H 05/16/20 19:31 Pulse Ox 100 05/16/20 19:31 - Orders/Labs/Meds Labs: Laboratory Tests 05/16/20 05/16/20 05/16/20 Range/Units 21:12 21:12 21:12 WBC 8.5 (5.0-10.0) 10^3/uL RBC 4.81 (4.2-5.4) 10^6/uL Hgb 12.5 (12.0-16.0) g/dL Hct 39.9 (37.0-47.0) % MCV 83.0 (80-100) fL MCH 26.0 L (27.0-34.0) pg MCHC 31.3 L (33.0-35.0) g/dL Plt Count 422 (150-450) 10^3/uL Neut % (Auto) 59.6 (42.2-75.2) % Lymph % (Auto) 28.3 (20.5-50.1) % [place] % (Auto) 8.3 H (2-8) % Eos % (Auto) 3.3 H (1.0-3.0) % Baso % (Auto) 0.5 (0.0-1.0) % D-Dimer, Quantitative 418 H (0-400) ng/mL Sodium 141 (136-145) mmol/L Potassium 3.5 (3.5-5.1) mmol/L Chloride 104 (98-107) mmol/L Carbon Dioxide 31 (21-32) mmol/L Anion Gap 9.5 (7-13) mEq/L BUN 13 (7-18) mg/dL Creatinine 0.79 (0.55-1.02) mg/dL Est Cr Clr Drug Dosing 92.00 mL/min Estimated GFR (MDRD) > 60 BUN/Creatinine Ratio 16.5 (No establ ref range) Glucose 87 (74-99) mg/dL Calcium 8.6 (8.5-10.1) mg/dL Total Bilirubin 0.3 (0.2-1.0) mg/dL AST 17 (15-37) U/L ALT 27 (14-59) U/L Alkaline Phosphatase 113 (46-116) U/L B-Natriuretic Peptide 6 (0-100) pg/ml Total Protein 7.5 (6.4-8.2) g/dL Albumin 3.2 L (3.4-5.0) g/dL Globulin 4.3 Albumin/Globulin Ratio 0.74 Departure - Departure Time of Disposition: 22:01 Disposition: Home, Self-Care 01 Condition: Fair Clinical Impression: Edema of left lower extremity - Discharge Information *PRESCRIPTION DRUG MONITORING PROGRAM REVIEWED*: Not Applicable *COPY OF PRESCRIPTION DRUG MONITORING REPORT IN PATIENT RONA: Not Applicable Forms: ED Department Discharge Care Plan Goals: The patient was advised of the examination and lab results during the visit. The patient's left foot and lower leg was wrapped with an TUNDE wrap for compression. The patient was encouraged to keep the leg elevated above the level of the heart as much as possible. The patient was advised that she may benefit by wearing a compression stocking over the area to reduce amount of swelling throughout the day. If the patient has any additional symptoms or concerns, the patient should either return to the emergency department or visit her primary care facility. Sepsis Event Note (ED) - Evaluation Sepsis Screening Result: No Definite Risk - Focused Exam Vital Signs: Vital Signs Temp Pulse Resp BP Pulse Ox 05/16/20 19:31 35.8 C L 87 18 150/89 H 100
[2020-05-16 21:35] LABS: ANION GAP 9.5 mEq/L (7-13); CHLORIDE,CL 104 mmol/L (98-107); SODIUM,NA 141 mmol/L (136-145)
== END 2020-05-16 22:07 | disposition home or self-care (01) ==
LOC: DL.ED 18:56
DX: R60.0 Localized edema (principal); I10 Essential (primary) hypertension; J45.909 Unspecified asthma, uncomplicated; Z88.6 Allergy status to analgesic agent; Z88.5 Allergy status to narcotic agent; Z79.899 Other long term (current) drug therapy
CPT/HCPCS: 36415; 80053; 83880; 85025; 85379; 99284

== ENCOUNTER 2020-09-30 16:10 | Emergency (ER) | payer MEDICAID ==
[2020-09-30 16:44] VITALS: BP 164/86; PULSE 85
--- NOTE | 2020-09-30 18:38 | EDM.PDOC ---
<Haley Mcdaniel - Last Filed: 09/30/20 18:43> ED HPI GENERAL MEDICAL PROBLEM - General Chief Complaint: Abdominal Pain Stated Complaint: VERTEBRAE PAIN, RECTAL BLEEDING Time Seen by Provider: 09/30/20 18:16 Source of Information: Reports: Patient, RN, RN Notes Reviewed History Limitations: Reports: No Limitations - History of Present Illness INITIAL COMMENTS - FREE TEXT/NARRATIVE: Patient is a 49-year-old female who presents to the ER with complaint of lower back pain. She states she had injections in the back last week, 6 injections for dry vertebrae. Patient states she has been having low back pain, tingling of the legs down to the ankles. She states today she had blood from the rectal area twice. States it was dark-colored blood. Last menses first week in August. Denies chances of , denies any blood in the urine. Patient denies any abdominal pain, fever, chills, chest pain, shortness of breath, nausea, vomiting, diarrhea. Patient is laying prone on the bed because this is the most comfortable position, rates back pain a 10/10. Patient states she has had blood from the rectum in the past, last time was approximately a year ago and she was diagnosed with hep hemorrhoids. Patient states bowel movements have been brown with bright red blood around. States she does take a lot of ibuprofen though. Patient states that she takes an inflammatory med for the lower back, which causes her to have diarrhea. Last episode of diarrhea was yesterday. Onset: Gradual Lower Back Pain Score (Numeric/FACES): 10 - Related Data Allergies Allergy/AdvReac Type Severity Reaction Status Date / Time acetaminophen [From Percocet] Allergy Itching Verified 05/16/20 19:40 hydrocodone Allergy Rash Verified 05/16/20 19:40 oxycodone HCl [From Percocet] Allergy Itching Verified 05/16/20 19:40 Home Meds: Home Meds Albuterol Sulfate [Albuterol Sulfate Hfa] 2 puff INH QID PRN 12/24/18 [History] Furosemide 20 mg PO DAILY 12/24/18 [History] Lisinopril 10 mg PO DAILY 03/19/19 [History] Cetirizine HCl [Zyrtec] 10 mg PO DAILY 11/19/19 [History] LORazepam [Lorazepam] 0.5 mg PO BID PRN 11/19/19 [History] Olopatadine [Pataday 0.2% Ophth Soln] 1 drop EYEBOTH DAILY PRN 11/19/19 [History] Ondansetron [Zofran ODT] 4 mg PO Q8H PRN 11/19/19 [History] Pantoprazole Sodium [Protonix] 40 mg PO DAILY 11/19/19 [History] Past Medical History - Past Health History Medical/Surgical History: Denies Medical/Surgical History HEENT History: Reports: None Cardiovascular History: Reports: Hypertension Respiratory History: Reports: Asthma, Bronchitis, Recurrent, Sleep Apnea Other Respiratory History: CPAP Gastrointestinal History: Reports: None, Hemorrhoids Genitourinary History: Reports: None 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 Musculoskeletal History: Reports: Arthritis, Osteoarthritis Neurological History: Reports: None Psychiatric History: Reports: None Endocrine/Metabolic History: Reports: None Hematologic History: Reports: None Immunologic History: Reports: None Oncologic (Cancer) History: Reports: None Dermatologic History: Reports: None - Infectious Disease History Infectious Disease History: Reports: None - Past Surgical History HEENT Surgical History: Reports: None Cardiovascular Surgical History: Reports: None Respiratory Surgical History: Reports: None GI Surgical History: Reports: Colonoscopy Female Surgical History: Reports: None Musculoskeletal Surgical History: Reports: Other (See Below) Other Musculoskeletal Surgeries/Procedures:: foot surg. Social & Family History - Family History Family Medical History: No Pertinent Family History - Tobacco Use Tobacco Use Status *Q: Never Tobacco User - Caffeine Use Caffeine Use: Reports: None Caffeine Use Comment: 1 cup of coffee in the morning - Recreational Drug Use Recreational Drug Use: No - Living Situation & Occupation Living situation: Reports: with Family Occupation: Employed ED ROS GENERAL - Review of Systems Review Of Systems: Comprehensive ROS is negative, except as noted in HPI. ED EXAM,LOWER BACK PAIN/INJURY - Physical Exam Exam: See Below Exam Limited By: No Limitations General Appearance: Alert, WD/WN, Mild Distress Eye Exam: Bilateral Eye: EOMI, Normal Inspection Ears: Normal External Exam, Hearing Grossly Normal Nose: Normal Inspection Throat/Mouth: Normal Inspection, Normal Voice, No Airway Compromise Head: Atraumatic, Normocephalic Neck: Normal Inspection, Supple, Non-Tender, Full Range of Motion Respiratory/Chest: No Respiratory Distress, Lungs Clear, Normal Breath Sounds, No Accessory Muscle Use, Chest Non-Tender Cardiovascular: Normal Peripheral Pulses, Regular Rate, Rhythm, No Edema, No Gallop, No JVD, No Murmur, No Rub GI/Abdominal: Normal Bowel Sounds, Soft, Non-Tender (Female) Exam: Deferred Rectal (Female) Exam: Normal Rectal Tone, Heme - Stool, Hemorrhoids, Other (minimal bright red blood) Back Exam: Normal Inspection, Decreased Range of Motion, Other (tinglinging down the legs, pain in the lower back. ) Extremities: Normal Inspection, Non-Tender, Limited Range of Motion, Other (tingling to the legs) Neurological: Alert, Normal Mood/Affect, Normal Dorsiflexion, CN II-XII Intact, Oriented x 3, Other (states tingling to the legs, walks slow/gingerly) Psychiatric: Normal Affect, Normal Mood Skin Exam: Warm, Dry, Intact, Normal Color, No Rash Lymphatic: No Adenopathy Departure - Departure Disposition: Home, Self-Care 01 Clinical Impression: Hemorrhoids Qualifiers: Hemorrhoid type: unspecified Qualified Code(s): K64.9 - Unspecified hemorrhoids Back pain Qualifiers: Back pain location: low back pain Chronicity: chronic Back pain laterality: midline Sciatica presence: without sciatica Qualified Code(s): M54.5 - Low back pain - Discharge Information *PRESCRIPTION DRUG MONITORING PROGRAM REVIEWED*: No *COPY OF PRESCRIPTION DRUG MONITORING REPORT IN PATIENT RONA: No Instructions: Chronic Back Pain, [id number], Hemorrhoids, [id number] Forms: ED Department Discharge Additional Instructions: avoid spicy foods and caffeine, limit antiinflammatory medications when possible ice to low back follow with primary care on Saturday for recheck stool osftener if needed increase fluids to avoid constipation Sepsis Event Note (ED) - Evaluation Sepsis Screening Result: No Definite Risk <Maritza Modi - Last Filed: 09/30/20 19:33> Course - Vital Signs Last Recorded V/S: Last Vital Signs Temp 97.8 F 09/30/20 16:35 Pulse 85 09/30/20 16:35 Resp 19 09/30/20 16:35 BP 164/86 H 09/30/20 16:35 Pulse Ox 99 09/30/20 16:35 - Orders/Labs/Meds Meds: Medications Discontinued Medications Generic Name Dose Route Start Last Admin Trade Name Freq PRN Reason Stop Dose Admin Ketorolac Tromethamine 30 mg 09/30/20 19:28 Toradol IM 09/30/20 19:29 ONETIME ONE Departure - Departure Time of Disposition: 19:31 Sepsis Event Note (ED) - Focused Exam Vital Signs: Vital Signs Temp Pulse Resp BP Pulse Ox 09/30/20 16:35 97.8 F 85 19 164/86 H 99
[2020-09-30] MEDS ORDERED: Ketorolac 30 MG/ML SDV IM ONE (19:28)
== END 2020-09-30 19:53 | disposition home or self-care (01) ==
LOC: DL.ED 16:10
DX: G89.29 Other chronic pain (principal); M54.5 Low back pain; K64.9 Unspecified hemorrhoids; I10 Essential (primary) hypertension; J45.909 Unspecified asthma, uncomplicated; M19.90 Unspecified osteoarthritis, unspecified site; Z88.5 Allergy status to narcotic agent; Z88.6 Allergy status to analgesic agent; Z79.899 Other long term (current) drug therapy
CPT/HCPCS: 82272; 96372; 99283; J1885

== ENCOUNTER 2020-10-15 12:48 | Emergency (ER) | payer MEDICAID ==
[2020-10-15] MEDS ORDERED: Ketorolac 30 MG/ML SDV IVPUSH ONE (13:07)
[2020-10-15] MEDS ORDERED: Sodium Chloride 0.9% 1,000 ML IV ONE (13:07)
[2020-10-15] MEDS ORDERED: Sodium Chloride 0.9% 10 ML Syringe FLUSH PRN (13:07)
[2020-10-15] MEDS ORDERED: Metoclopramide 10 MG/2 ML SDV IVPUSH ONE (13:07)
[2020-10-15] MEDS ORDERED: LORazepam 2 MG/ML SDV IVPUSH ONE (13:08)
[2020-10-15] MEDS ORDERED: diphenhydrAMINE 50 MG/ML SDV IVPUSH ONE (13:08)
--- NOTE | 2020-10-15 13:18 | EDM.PDOC ---
Scribed by Chetna William 10/15/20 1317 for Scott Rogers MD ED HPI GENERAL MEDICAL PROBLEM - General Chief Complaint: Headache Stated Complaint: MIGRANE VERY INTENSE CAUSED FALL Time Seen by Provider: 10/15/20 13:04 Source of Information: Reports: Patient, RN, RN Notes Reviewed History Limitations: Reports: No Limitations - History of Present Illness INITIAL COMMENTS - FREE TEXT/NARRATIVE: Patient presents to ED by POV. Patient states the migraine started last night. She took a Tylenol at 1 A.M.. She has developed dizziness and sarkar flashing in her vision and nausea. Now the headache is all over and pounding. She feels like throwing up but hasn't. She has had similar headache for several years but only happens every few months. They usually go away with Tylenol and rest, but one is not. 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 (Tylenol) Headache Pain Score (Numeric/FACES): 10 - Related Data Allergies Allergy/AdvReac Type Severity Reaction Status Date / Time acetaminophen [From Percocet] Allergy Itching Verified 10/15/20 13:07 hydrocodone Allergy Rash Verified 10/15/20 13:07 oxycodone HCl [From Percocet] Allergy Itching Verified 10/15/20 13:07 Home Meds: Home Meds Albuterol Sulfate [Albuterol Sulfate Hfa] 2 puff INH QID PRN 12/24/18 [History] Furosemide 20 mg PO DAILY 12/24/18 [History] Lisinopril 10 mg PO DAILY 03/19/19 [History] Cetirizine HCl [Zyrtec] 10 mg PO DAILY 11/19/19 [History] LORazepam [Lorazepam] 0.5 mg PO BID PRN 11/19/19 [History] Olopatadine [Pataday 0.2% Ophth Soln] 1 drop EYEBOTH DAILY PRN 11/19/19 [History] Ondansetron [Zofran ODT] 4 mg PO Q8H PRN 11/19/19 [History] Pantoprazole Sodium [Protonix] 40 mg PO DAILY 11/19/19 [History] Past Medical History - Past Health History Medical/Surgical History: Denies Medical/Surgical History HEENT History: Reports: None Cardiovascular History: Reports: Hypertension Respiratory History: Reports: Asthma, Bronchitis, Recurrent, Sleep Apnea Other Respiratory History: CPAP Gastrointestinal History: Reports: None, Hemorrhoids Genitourinary History: Reports: None 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 Musculoskeletal History: Reports: Arthritis, Osteoarthritis Neurological History: Reports: None Psychiatric History: Reports: None Endocrine/Metabolic History: Reports: None Hematologic History: Reports: None Immunologic History: Reports: None Oncologic (Cancer) History: Reports: None Dermatologic History: Reports: None - Infectious Disease History Infectious Disease History: Reports: None - Past Surgical History HEENT Surgical History: Reports: None Cardiovascular Surgical History: Reports: None Respiratory Surgical History: Reports: None GI Surgical History: Reports: Colonoscopy Female Surgical History: Reports: None Musculoskeletal Surgical History: Reports: Other (See Below) Other Musculoskeletal Surgeries/Procedures:: foot surg. Social & Family History - Family History Family Medical History: No Pertinent Family History - Caffeine Use Caffeine Use: Reports: None Caffeine Use Comment: 1 cup of coffee in the morning - Living Situation & Occupation Living situation: Reports: with Family Occupation: Employed ED ROS GENERAL - Review of Systems Review Of Systems: Comprehensive ROS is negative, except as noted in HPI. - Physical Exam Exam: See Below Exam Limited By: No Limitations General Appearance: Alert, WD/WN, No Apparent Distress, Anxious, Other (Tearful) Eye Exam: Bilateral Eye: EOMI, PERRL, Other (Photophobia) Ears: Normal External Exam, Normal Canal, Hearing Grossly Normal, Normal TMs Nose: Normal Inspection, Normal Mucosa, No Blood Throat/Mouth: Normal Inspection, Normal Lips, Normal Teeth, Normal Gums, Normal Oropharynx, Normal Voice, No Airway Compromise Head Exam: Atraumatic, Normocephalic Neck: Normal Inspection, Supple, Non-Tender, Full Range of Motion. No: Carotid Bruit, Lymphadenopathy (L), Lymphadenopathy (R), Tender Midline Respiratory/Chest: No Respiratory Distress, Lungs Clear, Normal Breath Sounds, No Accessory Muscle Use, Chest Non-Tender Cardiovascular: Normal Peripheral Pulses, Regular Rate, Rhythm, No Edema, No Gallop, No JVD, No Murmur, No Rub GI/Abdominal: Normal Bowel Sounds, Soft, Non-Tender, No Organomegaly, No Distention, No Abnormal Bruit, No Mass (Female) Exam: Deferred Rectal (Female) Exam: Deferred Neuro Exam (Abbreviated): Alert, Oriented, CN II-XII Intact, Normal Cognition, Normal Gait, No Motor/Sensory Deficits Back Exam: Normal Inspection, Full Range of Motion, NT Extremities: Normal Inspection, Normal Range of Motion, Non-Tender, No Pedal Edema, Normal Capillary Refill Psychiatric: Anxious, Flat Affect, Tearful Skin Exam: Warm, Dry, Intact, Normal Color, No Rash Course - Vital Signs Last Recorded V/S: Last Vital Signs Temp 98 F 10/15/20 13:04 Pulse 73 10/15/20 13:04 Resp 18 10/15/20 13:04 BP 128/66 10/15/20 13:04 Pulse Ox 97 10/15/20 13:04 - Orders/Labs/Meds Orders: Active Orders 24 hr Category Date Time Status Peripheral IV Care [RC] . DIRECTED Care 10/15/20 13:08 Active Sodium Chloride 0.9% [Normal Saline] 1,000 ml Med 10/15/20 13:07 Active IV .BOLUS Sodium Chloride 0.9% [Saline Flush] Med 10/15/20 13:07 Active 10 ml FLUSH ASDIRECTED PRN Peripheral IV Insertion Adult [OM.PC] Stat Oth 10/15/20 13:07 Ordered Medication Orders Sodium Chloride (Normal Saline) 1,000 mls @ 999 mls/hr IV .BOLUS ONE Stop: 10/15/20 14:07 Sodium Chloride (Saline Flush) 10 ml FLUSH ASDIRECTED PRN PRN Reason: Keep Vein Open Meds: Medications Generic Name Dose Route Start Last Admin Trade Name Freq PRN Reason Stop Dose Admin Sodium Chloride 1,000 mls @ 999 mls/hr 10/15/20 13:07 Normal Saline IV 10/15/20 14:07 .BOLUS ONE Sodium Chloride 10 ml 10/15/20 13:07 Saline Flush FLUSH ASDIRECTED PRN Keep Vein Open Discontinued Medications Generic Name Dose Route Start Last Admin Trade Name Freq PRN Reason Stop Dose Admin Diphenhydramine HCl 25 mg 10/15/20 13:08 Benadryl IVPUSH 10/15/20 13:09 ONETIME ONE Ketorolac Tromethamine 30 mg 10/15/20 13:07 Toradol IVPUSH 10/15/20 13:08 ONETIME ONE Lorazepam 1 mg 10/15/20 13:08 Ativan IVPUSH 10/15/20 13:09 ONETIME ONE Metoclopramide HCl 10 mg 10/15/20 13:07 Reglan IVPUSH 10/15/20 13:08 ONETIME ONE Departure - Departure Time of Disposition: 13:18 Disposition: Home, Self-Care 01 Condition: Good Clinical Impression: Migraine Qualifiers: Migraine type: without aura Status migrainosus presence: without status migrainosus Intractability: intractable Qualified Code(s): G43.019 - Migraine without aura, intractable, without status migrainosus - Discharge Information *PRESCRIPTION DRUG MONITORING PROGRAM REVIEWED*: Not Applicable *COPY OF PRESCRIPTION DRUG MONITORING REPORT IN PATIENT RONA: Not Applicable Instructions: Migraine Headache, [id number] Forms: ED Department Discharge Additional Instructions: Rx: Reglan (Metoclopramide) 10mg Rx: Ketoralac 10mg Follow up in clinic if needed. Sepsis Event Note (ED) - Focused Exam Vital Signs: Vital Signs Temp Pulse Resp BP Pulse Ox 10/15/20 13:04 98 F 73 18 128/66 97 - My Orders Last 24 Hours: My Active Orders 10/15/20 13:07 Sodium Chloride 0.9% [Normal Saline] 1,000 ml IV .BOLUS Sodium Chloride 0.9% [Saline Flush] 10 ml FLUSH ASDIRECTED PRN Peripheral IV Insertion Adult [OM.PC] Stat 10/15/20 13:08 Peripheral IV Care [RC] . DIRECTED - Assessment/Plan Last 24 Hours: My Active Orders 10/15/20 13:07 Sodium Chloride 0.9% [Normal Saline] 1,000 ml IV .BOLUS Sodium Chloride 0.9% [Saline Flush] 10 ml FLUSH ASDIRECTED PRN Peripheral IV Insertion Adult [OM.PC] Stat 10/15/20 13:08 Peripheral IV Care [RC] . DIRECTED I have read and agree with the documentation that has been completed regarding this visit. By signing this record, I attest that the documentation was completed in my physical presence and is an accurate record of the encounter.
[2020-10-15 14:07] VITALS: BP 128/66; PULSE 73
== END 2020-10-15 14:03 | disposition home or self-care (01) ==
LOC: DL.ED 12:48
DX: G43.019 Migraine without aura, intractable, without status migrainosus (principal); J45.909 Unspecified asthma, uncomplicated; I10 Essential (primary) hypertension; Z88.6 Allergy status to analgesic agent; Z88.5 Allergy status to narcotic agent; Z79.899 Other long term (current) drug therapy
CPT/HCPCS: 96374; 96375; 99283; J1200; J1885; J2060; J2765; J7030

== ENCOUNTER 2020-11-06 13:13 | Emergency (ER) | payer MEDICAID ==
[2020-11-06 13:28] VITALS: BP 157/79; PULSE 87
[2020-11-06] MEDS ORDERED: methylPREDNISolone Sodium Succinate 125 MG/2 ML SDV IM ONE (14:22)
--- NOTE | 2020-11-06 14:28 | EDM.PDOC ---
ED HPI GENERAL MEDICAL PROBLEM - General Stated Complaint: LOWER BACK PAIN PRIOR INJECTION OR @INJECTION SITE Time Seen by Provider: 11/06/20 14:15 Source of Information: Reports: Patient - History of Present Illness INITIAL COMMENTS - FREE TEXT/NARRATIVE: This 50 yo female patient reports to the ED with continued back pain. The patient reports she was seen in the pain clinic one day prior to arrival in the ED. The patient reports she has had a history of low back pain and is allergic to hydrocodone and oxycodone. Onset: Gradual Duration: Day(s):, Constant Location: Reports: Back (lower back) Quality: Reports: Ache Severity: Moderate (Rates pain a 7/10) Improves with: Reports: None Worsens with: Reports: None Associated Symptoms: Reports: No Other Symptoms Lower Back Pain Score (Numeric/FACES): 8 - Related Data Allergies Allergy/AdvReac Type Severity Reaction Status Date / Time acetaminophen [From Percocet] Allergy Itching Verified 11/06/20 13:30 hydrocodone Allergy Rash Verified 11/06/20 13:30 oxycodone HCl [From Percocet] Allergy Itching Verified 11/06/20 13:30 Home Meds: Home Meds Albuterol Sulfate [Albuterol Sulfate Hfa] 2 puff INH QID PRN 12/24/18 [History] Furosemide 20 mg PO DAILY 12/24/18 [History] Lisinopril 10 mg PO DAILY 03/19/19 [History] Cetirizine HCl [Zyrtec] 10 mg PO DAILY 11/19/19 [History] LORazepam [Lorazepam] 0.5 mg PO BID PRN 11/19/19 [History] Olopatadine [Pataday 0.2% Ophth Soln] 1 drop EYEBOTH DAILY PRN 11/19/19 [History] Ondansetron [Zofran ODT] 4 mg PO Q8H PRN 11/19/19 [History] Pantoprazole Sodium [Protonix] 40 mg PO DAILY 11/19/19 [History] Past Medical History - Past Health History Medical/Surgical History: Denies Medical/Surgical History HEENT History: Reports: None Cardiovascular History: Reports: Hypertension Respiratory History: Reports: Asthma, Bronchitis, Recurrent, Sleep Apnea Other Respiratory History: CPAP Gastrointestinal History: Reports: None, Hemorrhoids Genitourinary History: Reports: None 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: Reports: None Musculoskeletal History: Reports: Arthritis, Osteoarthritis Neurological History: Reports: None Psychiatric History: Reports: None Endocrine/Metabolic History: Reports: None Hematologic History: Reports: None Immunologic History: Reports: None Oncologic (Cancer) History: Reports: None Dermatologic History: Reports: None - Infectious Disease History Infectious Disease History: Reports: None - Past Surgical History HEENT Surgical History: Reports: None Cardiovascular Surgical History: Reports: None Respiratory Surgical History: Reports: None GI Surgical History: Reports: Colonoscopy Female Surgical History: Reports: None Musculoskeletal Surgical History: Reports: Other (See Below) Other Musculoskeletal Surgeries/Procedures:: foot surg. Social & Family History - Family History Family Medical History: No Pertinent Family History - Tobacco Use Tobacco Use Status *Q: Never Tobacco User - Caffeine Use Caffeine Use: Reports: None Caffeine Use Comment: 1 cup of coffee in the morning - Recreational Drug Use Recreational Drug Use: No - Living Situation & Occupation Living situation: Reports: with Family Occupation: Employed ED ROS GENERAL - Review of Systems Review Of Systems: Comprehensive ROS is negative, except as noted in HPI. ED EXAM,LOWER BACK PAIN/INJURY - Physical Exam Exam: See Below Exam Limited By: No Limitations General Appearance: Alert, WD/WN, Mild Distress, Obese Eye Exam: Bilateral Eye: EOMI, Normal Inspection, PERRL Ears: Normal External Exam, Normal Canal, Hearing Grossly Normal, Normal TMs Nose: Normal Inspection, Normal Mucosa, No Blood Throat/Mouth: Normal Inspection, Normal Lips, Normal Teeth, Normal Gums, Normal Oropharynx, Normal Voice, No Airway Compromise Head: Atraumatic, Normocephalic Neck: Normal Inspection, Supple, Non-Tender, Full Range of Motion Respiratory/Chest: No Respiratory Distress, Lungs Clear, Normal Breath Sounds, No Accessory Muscle Use, Chest Non-Tender Cardiovascular: Normal Peripheral Pulses, Regular Rate, Rhythm, No Edema, No Gallop, No JVD, No Murmur, No Rub GI/Abdominal: Normal Bowel Sounds, Soft, Non-Tender, No Organomegaly, No Distention, No Abnormal Bruit, No Mass, Other (obese) (Female) Exam: Deferred Rectal (Female) Exam: Deferred Back Exam: Paraspinal Tenderness (lower back) Extremities: Limited Range of Motion (due to lower back pain) Neurological: Alert, Normal Mood/Affect, Oriented x 3 Psychiatric: Normal Affect, Normal Mood Skin Exam: Warm, Dry, Intact, Normal Color, No Rash Lymphatic: No Adenopathy Course - Vital Signs Last Recorded V/S: Last Vital Signs Temp 36.6 C 11/06/20 13:27 Pulse 87 11/06/20 13:27 Resp 16 11/06/20 13:27 BP 157/79 H 11/06/20 13:27 Pulse Ox 98 11/06/20 13:27 - Orders/Labs/Meds Meds: Medications Discontinued Medications Generic Name Dose Route Start Last Admin Trade Name Ze PRN Reason Stop Dose Admin Methylprednisolone Sodium Succinate 125 mg 11/06/20 14:22 11/06/20 14:28 Methylprednisolone Sodium Succinate 125 Mg/2 Ml Sdv IM 11/06/20 14:23 125 mg ONETIME ONE Administration Departure - Departure Time of Disposition: 14:24 Disposition: Home, Self-Care 01 Condition: Fair Clinical Impression: Back pain Qualifiers: Back pain location: low back pain Chronicity: chronic Back pain laterality: midline Sciatica presence: without sciatica Qualified Code(s): M54.5 - Low back pain - Discharge Information *PRESCRIPTION DRUG MONITORING PROGRAM REVIEWED*: Not Applicable *COPY OF PRESCRIPTION DRUG MONITORING REPORT IN PATIENT RONA: Not Applicable Instructions: Chronic Back Pain, [id number] Forms: ED Department Discharge Care Plan Goals: The patient was advised of the examination results during the visit. The patient was given an IM dose of SoluMedrol while in the ED. The patient was discharged with a script for Prednisone (20 mg) #8 to take 2 by mouth daily (starting 11/07/20) and Flexeril (10 mg) #10 to take 1 by mouth at bedtime. If the patient has any additional symptoms or concerns, the patient should either return to the emergency department or visit her primary care facility. Sepsis Event Note (ED) - Evaluation Sepsis Screening Result: No Definite Risk
== END 2020-11-06 14:40 | disposition home or self-care (01) ==
LOC: DL.ED 13:13
DX: M54.5 Low back pain (principal); I10 Essential (primary) hypertension; J45.909 Unspecified asthma, uncomplicated; Z79.899 Other long term (current) drug therapy; Z88.6 Allergy status to analgesic agent; Z88.5 Allergy status to narcotic agent
CPT/HCPCS: 96372; 99283; J2930

== ENCOUNTER 2020-11-27 18:16 | Emergency (ER) | payer MEDICAID ==
--- NOTE | 2020-11-27 18:20 | EDM.PDOC ---
<Marco Garner - Last Filed: 11/27/20 18:46> ED HPI GENERAL MEDICAL PROBLEM - General Chief Complaint: Chest Pain Stated Complaint: [facility] - CHEST PAIN, DIZZY Time Seen by Provider: 11/27/20 18:37 Source of Information: Reports: Patient History Limitations: Reports: No Limitations - History of Present Illness INITIAL COMMENTS - FREE TEXT/NARRATIVE: Rachel is a 50 year old female with a significant past medical history of pleuritic chest pain, hypertension and edema that presents to the emergency department via ambulance for dizziness and chest pain. The dizziness started earlier today while she was looking out the window with associated chest pain, she has had these symptoms before in the past, due to the severity of the chest pain she called EMS to be evaluated. She rates her chest pain currently at a 7/10 located across her chest, she describes the pain as sharp and non- radiating. She had associated left and right arm numbness but this has now resolved. She has a significant family cardiac history of her Grandmother and brother who have both had heart attacks in the past. She denies any ACS history herself. She did not receive any medications by EMS, she has been taking all her medications as prescribed. - Related Data Allergies Allergy/AdvReac Type Severity Reaction Status Date / Time acetaminophen [From Percocet] Allergy Itching Verified 11/27/20 18:13 oxycodone HCl [From Percocet] Allergy Itching Verified 11/27/20 18:13 Home Meds: Home Meds Albuterol Sulfate [Albuterol Sulfate Hfa] 2 puff INH QID PRN 12/24/18 [History] Furosemide 10 mg PO DAILY 12/24/18 [History] Cyclobenzaprine [Flexeril] 10 mg PO BID PRN 11/27/20 [History] Diclofenac Submicronized [Diclofenac] 50 mg PO TID 11/27/20 [History] ED ROS GENERAL - Review of Systems Review Of Systems: Comprehensive ROS is negative, except as noted in HPI. ED EXAM, GENERAL - Physical Exam Exam: See Below Exam Limited By: No Limitations General Appearance: Alert, WD/WN, No Apparent Distress Eye Exam: Bilateral Eye: EOMI, PERRL Ears: Normal External Exam Throat/Mouth: Normal Inspection, Normal Lips Head: Atraumatic Neck: Normal Inspection Respiratory/Chest: No Respiratory Distress, Lungs Clear, Normal Breath Sounds, Other (Chest pain reproducible over right side of sternun ) Cardiovascular: Normal Peripheral Pulses, Regular Rate, Rhythm, No Edema GI/Abdominal: Normal Bowel Sounds, Soft, Non-Tender Extremities: No Pedal Edema, Other (left ankle swollen, non painful or pitting ) Neurological: Alert, Oriented, CN II-XII Intact, Normal Cognition Departure - Departure Disposition: Home, Self-Care 01 Clinical Impression: Atypical chest pain Instructions: Chest Wall Pain, [id number] Referrals: Mary Ellen Ambrocio NP [Primary Care Provider] - Forms: ED Department Discharge Additional Instructions: [facility] follow up this week recheck if chest pain, nausea radiation arm pain <Armond Monaco - Last Filed: 11/28/20 08:16> ED HPI GENERAL MEDICAL PROBLEM - General Source of Information: Reports: Patient, EMS Chest Pain Score (Numeric/FACES): 7 Past Medical History - Past Health History Medical/Surgical History: Denies Medical/Surgical History HEENT History: Reports: None Cardiovascular History: Reports: Hypertension Respiratory History: Reports: Asthma, Bronchitis, Recurrent, Sleep Apnea Other Respiratory History: CPAP Gastrointestinal History: Reports: None, Hemorrhoids Genitourinary History: Reports: None [employer] History: Reports: None Musculoskeletal History: Reports: Arthritis, Osteoarthritis Neurological History: Reports: None Psychiatric History: Reports: None Endocrine/Metabolic History: Reports: None Hematologic History: Reports: None Immunologic History: Reports: None Oncologic (Cancer) History: Reports: None Dermatologic History: Reports: None - Infectious Disease History Infectious Disease History: Reports: None - Past Surgical History HEENT Surgical History: Reports: None Cardiovascular Surgical History: Reports: None Respiratory Surgical History: Reports: None GI Surgical History: Reports: Colonoscopy Female Surgical History: Reports: None Musculoskeletal Surgical History: Reports: Other (See Below) Other Musculoskeletal Surgeries/Procedures:: foot surg. Social & Family History - Family History Family Medical History: No Pertinent Family History - Caffeine Use Caffeine Use: Reports: None Caffeine Use Comment: 1 cup of coffee in the morning - Living Situation & Occupation Living situation: Reports: with Family Occupation: Employed ED ROS GENERAL - Review of Systems Review Of Systems: Comprehensive ROS is negative, except as noted in HPI. ED EXAM, GENERAL - Physical Exam Exam: See Below Exam Limited By: No Limitations General Appearance: Alert, WD/WN, Mild Distress Eye Exam: Bilateral Eye: EOMI, Normal Inspection, PERRL Ears: Normal External Exam, Normal Canal, Hearing Grossly Normal, Normal TMs Nose: Normal Inspection, Normal Mucosa, No Blood Throat/Mouth: Normal Inspection, Normal Lips, Normal Teeth, Normal Gums, Normal Oropharynx, Normal Voice, No Airway Compromise Head: Atraumatic, Normocephalic Neck: Normal Inspection, Supple, Non-Tender, Full Range of Motion Respiratory/Chest: No Respiratory Distress, Lungs Clear, Normal Breath Sounds, No Accessory Muscle Use, Chest Non-Tender Cardiovascular: Normal Peripheral Pulses, Regular Rate, Rhythm, No Gallop, No JVD, No Murmur, No Rub, Other (chest pain reproducable over sternum) GI/Abdominal: Normal Bowel Sounds, Soft, Non-Tender, No Organomegaly, No Distention, No Abnormal Bruit, No Mass (Female) Exam: Deferred Rectal (Female) Exam: Deferred Back Exam: Normal Inspection, Full Range of Motion, NT Extremities: Normal Inspection, Normal Range of Motion, Non-Tender, Normal Capillary Refill, No Pedal Edema Neurological: Alert, Oriented, CN II-XII Intact, Normal Cognition, Normal Gait, Normal Reflexes, No Motor/Sensory Deficits Psychiatric: Normal Affect, Normal Mood Skin Exam: Warm, Dry, Intact, Normal Color, No Rash Lymphatic: No Adenopathy #1 Interpretation EKG Date: 11/27/20 Time: 18:06 Rhythm: NSR Rate (Beats/Min): 85 Ketchum: Normal P-Wave: Present QRS: Normal ST-T: Normal QT: Normal Comparison: No Change (compared to 12/23/18) Course - Re-Assessments/Exams Free Text/Narrative Re-Assessment/Exam: 11/28/20 08:07 I have examined the patient. I have discussed findings and treatment plan with the Dr. Garner. I agree with the assessment and plan in the following residents note. Sepsis Event Note (ED) - Evaluation Sepsis Screening Result: No Definite Risk <Maritza Modi - Last Filed: 11/29/20 01:40> #2 Interpretation EKG Date: 11/27/20 Time: 22:04 Rhythm: NSR Rate (Beats/Min): 48 P-Wave: Present QRS: Normal ST-T: Normal QT: Normal Comparison: No Change Course - Vital Signs Last Recorded V/S: Last Vital Signs Temp 97.8 F 11/27/20 22:11 Pulse 83 11/27/20 22:11 Resp 20 11/27/20 22:11 BP 148/90 H 11/27/20 22:11 Pulse Ox 99 11/27/20 22:11 - Orders/Labs/Meds Labs: Laboratory Tests 11/27/20 11/27/20 11/27/20 Range/Units 18:07 18:07 18:07 WBC 10.3 H (5.0-10.0) 10^3/uL RBC 5.11 (4.2-5.4) 10^6/uL Hgb 13.1 (12.0-16.0) g/dL Hct 43.2 (37.0-47.0) % MCV 84.5 (80-100) fL MCH 25.6 L (27.0-34.0) pg MCHC 30.3 L (33.0-35.0) g/dL Plt Count 451 H (150-450) 10^3/uL Neut % (Auto) 68.8 (42.2-75.2) % Lymph % (Auto) 21.7 (20.5-50.1) % Redwood % (Auto) 6.2 (2-8) % Eos % (Auto) 2.9 (1.0-3.0) % Baso % (Auto) 0.4 (0.0-1.0) % PT 9.9 (9.0-12.0) SEC INR 1.0 (0.9-1.2) Sodium 141 (136-145) mmol/L Potassium 4.0 (3.5-5.1) mmol/L Chloride 104 (98-107) mmol/L Carbon Dioxide 29 (21-32) mmol/L Anion Gap 12.0 (7-13) mEq/L BUN 22 H (7-18) mg/dL Creatinine 0.95 (0.55-1.02) mg/dL Est Cr Clr Drug Dosing 73.05 mL/min Estimated GFR (MDRD) > 60 BUN/Creatinine Ratio 23.2 (No establ ref range) Glucose 105 H (70-99) mg/dL Lactic Acid (0.4-2.0) mmol/L Calcium 9.0 (8.5-10.1) mg/dL Total Bilirubin 0.3 (0.2-1.0) mg/dL AST 23 (15-37) U/L ALT 47 (14-59) U/L Alkaline Phosphatase 104 (46-116) U/L Troponin I < 0.017 (0.000-0.056) ng/mL Total Protein 7.8 (6.4-8.2) g/dL Albumin 3.2 L (3.4-5.0) g/dL Globulin 4.6 Albumin/Globulin Ratio 0.70 Salicylates (2.8-20(Therapeutic)) mg/dL Acetaminophen 0 L (10-30 (Therapeutic)) ug/mL Ethyl Alcohol < 3 (0) mg/dL 11/27/20 11/27/20 11/27/20 Range/Units 18:07 18:07 21:55 WBC (5.0-10.0) 10^3/uL RBC (4.2-5.4) 10^6/uL Hgb (12.0-16.0) g/dL Hct (37.0-47.0) % MCV (80-100) fL MCH (27.0-34.0) pg MCHC (33.0-35.0) g/dL Plt Count (150-450) 10^3/uL Neut % (Auto) (42.2-75.2) % Lymph % (Auto) (20.5-50.1) % Redwood % (Auto) (2-8) % Eos % (Auto) (1.0-3.0) % Baso % (Auto) (0.0-1.0) % PT (9.0-12.0) SEC INR (0.9-1.2) Sodium (136-145) mmol/L Potassium (3.5-5.1) mmol/L Chloride (98-107) mmol/L Carbon Dioxide (21-32) mmol/L Anion Gap (7-13) mEq/L BUN (7-18) mg/dL Creatinine (0.55-1.02) mg/dL Est Cr Clr Drug Dosing mL/min Estimated GFR (MDRD) BUN/Creatinine Ratio (No establ ref range) Glucose (70-99) mg/dL Lactic Acid 1.3 (0.4-2.0) mmol/L Calcium (8.5-10.1) mg/dL Total Bilirubin (0.2-1.0) mg/dL AST (15-37) U/L ALT (14-59) U/L Alkaline Phosphatase (46-116) U/L Troponin I < 0.017 (0.000-0.056) ng/mL Total Protein (6.4-8.2) g/dL Albumin (3.4-5.0) g/dL Globulin Albumin/Globulin Ratio Salicylates < 2.8 L (2.8-20(Therapeutic)) mg/dL Acetaminophen (10-30 (Therapeutic)) ug/mL Ethyl Alcohol (0) mg/dL Meds: Medications Discontinued Medications Generic Name Dose Route Start Last Admin Trade Name Freq PRN Reason Stop Dose Admin Al Hydroxide/Mg Hydroxide 30 ml 11/27/20 22:36 11/27/20 22:43 Gi Cocktail Oral Solution 30 Ml PO 11/27/20 22:37 30 ml ONETIME ONE Administration Departure - Departure Time of Disposition: 22:37 Condition: Good
[2020-11-27 18:48] LABS: ACETAMINOPHEN 0 ug/mL (10-30 (Therapeutic)); CHLORIDE,CL 104 mmol/L (98-107); SODIUM,NA 141 mmol/L (136-145)
--- NOTE | 2020-11-27 18:58 | CR ---
PROCEDURE INFORMATION: Exam: XR Chest Exam date and time: 11/27/2020 6:24 PM Age: 50 years old Clinical indication: Other: Chest pain TECHNIQUE: Imaging protocol: XR of the chest. Views: 1 view. COMPARISON: CR Chest 2V 08/07/2019 1:55 PM FINDINGS: Lungs: The lungs are symmetric, well expanded and clear. Pleural spaces: There are no pleural effusions. There is no pneumothorax. Heart/Mediastinum: The heart size is normal as are the mediastinal and hilar contours. The pulmonary vessels are normal. Bones/joints: No acute osseous pathology is identified. IMPRESSION: No acute cardiopulmonary disease process identified.
[2020-11-27 19:20] VITALS: PULSE 83
[2020-11-27 22:12] VITALS: BP 148/90
[2020-11-27] MEDS ORDERED: GI Cocktail Oral Solution 30 ML PO ONE (22:36)
== END 2020-11-27 23:30 | disposition home or self-care (01) ==
LOC: DL.ED 18:16
DX: R07.89 Other chest pain (principal); Z88.5 Allergy status to narcotic agent; Z88.8 Allergy status to other drugs, medicaments and biological substances; Z79.899 Other long term (current) drug therapy
CPT/HCPCS: 36415; 71045; 80053; 80143; 80179; 80307; 83605; 84484; 85025; 85610; 87040; 93005; A9270; 93010; 99284; 99285-25

== ENCOUNTER 2021-01-10 18:05 | Emergency (ER) | payer MEDICAID ==
[2021-01-10 20:14] VITALS: BP 149/84; PULSE 75
[2021-01-10 21:18] LABS: ANION GAP 10.8 mEq/L (7-13); CHLORIDE,CL 106 mmol/L (98-107); SODIUM,NA 140 mmol/L (136-145)
--- NOTE | 2021-01-10 21:59 | EDM.PDOC ---
ED HPI GENERAL MEDICAL PROBLEM - General Chief Complaint: Lower Extremity Injury/Pain Stated Complaint: BOTH LEGS SWELLING, RIGHT THIGH BRUISING Time Seen by Provider: 01/10/21 20:15 Source of Information: Reports: Patient History Limitations: Reports: No Limitations - History of Present Illness INITIAL COMMENTS - FREE TEXT/NARRATIVE: ED with c/o swelling to lower extremities past few months, No SOB No chest pain. Bruising to right thigh but does not recall injury. Mild tenderness to bruised area. Left Ankle Pain Score (Numeric/FACES): 6 - Related Data Allergies Allergy/AdvReac Type Severity Reaction Status Date / Time acetaminophen [From Percocet] Allergy Itching Verified 11/27/20 18:13 oxycodone HCl [From Percocet] Allergy Itching Verified 11/27/20 18:13 Home Meds: Home Meds Albuterol Sulfate [Albuterol Sulfate Hfa] 2 puff INH QID PRN 12/24/18 [History] Furosemide 10 mg PO DAILY 12/24/18 [History] Cyclobenzaprine [Flexeril] 10 mg PO BID PRN 11/27/20 [History] Diclofenac Submicronized [Diclofenac] 50 mg PO TID 11/27/20 [History] Blood Pressure Pill 1 tab PO DAILY 01/10/21 [History] Past Medical History - Past Health History Medical/Surgical History: Denies Medical/Surgical History HEENT History: Reports: None Cardiovascular History: Reports: Hypertension Respiratory History: Reports: Asthma, Bronchitis, Recurrent, Sleep Apnea Other Respiratory History: CPAP Gastrointestinal History: Reports: Hemorrhoids Genitourinary History: Reports: None [employer] 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 Musculoskeletal History: Reports: Arthritis, Osteoarthritis Neurological History: Reports: None Psychiatric History: Reports: None Endocrine/Metabolic History: Reports: None Hematologic History: Reports: None Immunologic History: Reports: None Oncologic (Cancer) History: Reports: None Dermatologic History: Reports: None - Infectious Disease History Infectious Disease History: Reports: None - Past Surgical History HEENT Surgical History: Reports: None Cardiovascular Surgical History: Reports: None Respiratory Surgical History: Reports: None GI Surgical History: Reports: Colonoscopy Female Surgical History: Reports: None Musculoskeletal Surgical History: Reports: Other (See Below) Other Musculoskeletal Surgeries/Procedures:: foot surg. Social & Family History - Family History Family Medical History: No Pertinent Family History - Tobacco Use Tobacco Use Status *Q: Never Tobacco User Second Hand Smoke Exposure: No - Caffeine Use Caffeine Use: Reports: Coffee Caffeine Use Comment: 1 cup of coffee in the morning - Recreational Drug Use Recreational Drug Use: No - Living Situation & Occupation Living situation: Reports: with Family Occupation: Employed Review of Systems - Review of Systems Review Of Systems: Comprehensive ROS is negative, except as noted in HPI. ED EXAM, GENERAL - Physical Exam Exam: See Below Exam Limited By: No Limitations General Appearance: Alert, No Apparent Distress Eye Exam: Bilateral Eye: EOMI Ears: Normal External Exam, Hearing Grossly Normal, Normal TMs Nose: Normal Inspection Throat/Mouth: Normal Inspection, Normal Oropharynx Head: Atraumatic, Normocephalic Neck: Normal Inspection Respiratory/Chest: No Respiratory Distress, Lungs Clear, Normal Breath Sounds Cardiovascular: Normal Peripheral Pulses, Regular Rate, Rhythm. No: No Edema (1-2+bilateral) GI/Abdominal: Normal Bowel Sounds, Soft Extremities: Pedal Edema Neurological: Alert, Oriented, Normal Cognition Psychiatric: Flat Affect Skin Exam: Warm, Dry, Intact, Ecchymosis (scattered bruising anterior right thigh. ) Course - Vital Signs Last Recorded V/S: Last Vital Signs Temp 98.2 F 01/10/21 19:57 Pulse 75 01/10/21 19:57 Resp 16 01/10/21 19:57 BP 149/84 H 01/10/21 19:57 Pulse Ox 99 01/10/21 19:57 - Orders/Labs/Meds Labs: Laboratory Tests 01/10/21 01/10/21 01/10/21 Range/Units 20:30 20:30 20:30 WBC 8.8 (5.0-10.0) 10^3/uL RBC 4.62 (4.2-5.4) 10^6/uL Hgb 12.3 (12.0-16.0) g/dL Hct 39.5 (37.0-47.0) % MCV 85.5 (80-100) fL MCH 26.6 L (27.0-34.0) pg MCHC 31.1 L (33.0-35.0) g/dL Plt Count 420 (150-450) 10^3/uL Neut % (Auto) 62.2 (42.2-75.2) % Lymph % (Auto) 25.6 (20.5-50.1) % Patrick % (Auto) 8.1 H (2-8) % Eos % (Auto) 3.8 H (1.0-3.0) % Baso % (Auto) 0.3 (0.0-1.0) % D-Dimer, Quantitative 347 (0-400) ng/mL Sodium 140 (136-145) mmol/L Potassium 3.8 (3.5-5.1) mmol/L Chloride 106 (98-107) mmol/L Carbon Dioxide 27 (21-32) mmol/L Anion Gap 10.8 (7-13) mEq/L BUN 16 (7-18) mg/dL Creatinine 0.81 (0.55-1.02) mg/dL Est Cr Clr Drug Dosing 88.77 mL/min Estimated GFR (MDRD) > 60 BUN/Creatinine Ratio 19.8 (No establ ref range) Glucose 100 H (70-99) mg/dL Calcium 8.2 L (8.5-10.1) mg/dL Total Bilirubin 0.3 (0.2-1.0) mg/dL AST 23 (15-37) U/L ALT 34 (14-59) U/L Alkaline Phosphatase 111 (46-116) U/L B-Natriuretic Peptide 6 (0-100) pg/ml Total Protein 7.0 (6.4-8.2) g/dL Albumin 3.0 L (3.4-5.0) g/dL Globulin 4.0 Albumin/Globulin Ratio 0.75 Departure - Departure Time of Disposition: 21:56 Disposition: Home, Self-Care 01 Condition: Good Clinical Impression: Bilateral lower extremity edema, Contusion - Discharge Information *PRESCRIPTION DRUG MONITORING PROGRAM REVIEWED*: No *COPY OF PRESCRIPTION DRUG MONITORING REPORT IN PATIENT RONA: No Instructions: Edema, Contusion, [id number] Forms: ED Department Discharge Additional Instructions: elevate extremities limit sodium limit salt clinic follow up this week Sepsis Event Note (ED) - Evaluation Sepsis Screening Result: No Definite Risk
== END 2021-01-10 22:07 | disposition home or self-care (01) ==
LOC: DL.ED 18:05
DX: M79.81 Nontraumatic hematoma of soft tissue (principal); R60.0 Localized edema; J45.909 Unspecified asthma, uncomplicated; I10 Essential (primary) hypertension; Z88.6 Allergy status to analgesic agent; Z88.5 Allergy status to narcotic agent; Z79.899 Other long term (current) drug therapy
CPT/HCPCS: 36415; 80053; 83880; 85025; 85379; 99284

== ENCOUNTER 2021-01-31 12:17 | Emergency (ER) | payer MEDICAID ==
[2021-01-31 12:45] VITALS: BP 154/80; PULSE 70
== END 2021-01-31 14:46 | disposition left against medical advice (07) ==
LOC: DL.ED 12:17
DX: M54.9 Dorsalgia, unspecified (principal); Z53.21 Procedure and treatment not carried out due to patient leaving prior to being seen by health care provider

== ENCOUNTER 2021-02-01 20:07 | Emergency (ER) | payer MEDICAID ==
[2021-02-01 20:57] VITALS: BP 143/82; PULSE 92
== END 2021-02-01 23:57 | disposition left against medical advice (07) ==
LOC: DL.ED 20:07
DX: Z53.21 Procedure and treatment not carried out due to patient leaving prior to being seen by health care provider (principal)

== ENCOUNTER 2021-02-04 16:37 | Emergency (ER) | payer MEDICAID ==
[2021-02-04 16:56] VITALS: BP 150/91; PULSE 70
[2021-02-04] MEDS ORDERED: Tetracaine HCl/PF 0.5% 4 ML Bottle EYELF ONE (17:03)
[2021-02-04] MEDS ORDERED: Fluorescein 1 MG Ophth Strip EYELF ONE (17:04)
--- NOTE | 2021-02-04 17:20 | EDM.PDOC ---
ED HPI GENERAL MEDICAL PROBLEM - General Chief Complaint: Lower Extremity Injury/Pain Stated Complaint: AMBULANCE Time Seen by Provider: 02/04/21 17:15 Source of Information: Reports: Patient, RN, RN Notes Reviewed History Limitations: Reports: No Limitations - History of Present Illness INITIAL COMMENTS - FREE TEXT/NARRATIVE: Ta is a 50 y/o female who presents to the ED via [facility] with complaints of left lateral ankle pain. The patient reports approximately two hours ago she tripped and internally rotated her ankle while walking. She attests to history of fracture to the ankle and foot. She denies loss of sensory function but notes dorsi flexion and plantar flexion are limited d/t pain. She did not take any medications or attempt any supportive cares prior to calling EMS. She was given Fentanyl 50 mcg en route. Upon arrival to this facility she is lethargic, but rouses appropriately for interview and examination. Left Ankle Pain Score (Numeric/FACES): 5 - Related Data Allergies Allergy/AdvReac Type Severity Reaction Status Date / Time acetaminophen [From Percocet] Allergy Itching Verified 02/04/21 16:52 oxycodone HCl [From Percocet] Allergy Itching Verified 02/04/21 16:52 Home Meds: Home Meds Albuterol Sulfate [Albuterol Sulfate Hfa] 2 puff INH QID PRN 12/24/18 [History] Furosemide 10 mg PO DAILY 12/24/18 [History] Cyclobenzaprine [Flexeril] 10 mg PO BID PRN 11/27/20 [History] Diclofenac Submicronized [Diclofenac] 50 mg PO TID 11/27/20 [History] Blood Pressure Pill 1 tab PO DAILY 01/10/21 [History] Past Medical History - Past Health History Medical/Surgical History: Denies Medical/Surgical History HEENT History: Reports: None Cardiovascular History: Reports: Hypertension Respiratory History: Reports: Asthma, Bronchitis, Recurrent, Sleep Apnea Other Respiratory History: CPAP Gastrointestinal History: Reports: Hemorrhoids Genitourinary History: Reports: None 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 Musculoskeletal History: Reports: Arthritis, Osteoarthritis Neurological History: Reports: Neuropathy, Peripheral Psychiatric History: Reports: None Endocrine/Metabolic History: Reports: Obesity/BMI 30+ Hematologic History: Reports: None Immunologic History: Reports: None Oncologic (Cancer) History: Reports: None Dermatologic History: Reports: None - Infectious Disease History Infectious Disease History: Reports: None - Past Surgical History Head Surgeries/Procedures: Reports: None HEENT Surgical History: Reports: None Cardiovascular Surgical History: Reports: None Respiratory Surgical History: Reports: None GI Surgical History: Reports: Colonoscopy Female Surgical History: Reports: None Musculoskeletal Surgical History: Reports: Other (See Below) Other Musculoskeletal Surgeries/Procedures:: foot surg. Social & Family History - Family History Family Medical History: No Pertinent Family History - Tobacco Use Tobacco Use Status *Q: Never Tobacco User - Caffeine Use Caffeine Use: Reports: Coffee Caffeine Use Comment: 1 cup of coffee in the morning - Recreational Drug Use Recreational Drug Use: No - Living Situation & Occupation Living situation: Reports: with Family Occupation: Employed Review of Systems - Review of Systems Review Of Systems: Comprehensive ROS is negative, except as noted in HPI. ED EXAM, GENERAL - Physical Exam Exam: See Below Exam Limited By: No Limitations General Appearance: No Apparent Distress, Lethargic, Obese Eye Exam: Bilateral Eye: EOMI, Normal Inspection, PERRL (3mm) Ears: Normal External Exam, Hearing Grossly Normal Nose: Normal Inspection, Normal Mucosa, No Blood Throat/Mouth: Normal Inspection, Normal Oropharynx, Normal Voice, No Airway Compromise Head: Atraumatic, Normocephalic Neck: Normal Inspection, Supple, Non-Tender, Full Range of Motion Respiratory/Chest: No Respiratory Distress, Lungs Clear, Normal Breath Sounds, No Accessory Muscle Use, Chest Non-Tender Cardiovascular: Normal Peripheral Pulses, Regular Rate, Rhythm, No Edema, No Gallop, No JVD, No Murmur, No Rub Peripheral Pulses: 2+: Radial (L), Radial (R) Back Exam: Normal Inspection, Full Range of Motion Extremities: Normal Capillary Refill, Joint Swelling (Left lateral ankle), Leg Pain (Left lateral ankle), Limited Range of Motion, Increased Warmth Neurological: Alert, Oriented, CN II-XII Intact, Abnormal Gait Psychiatric: Normal Affect, Normal Mood Skin Exam: Warm, Dry, Intact, Ecchymosis (To left lateral, inferior ankle), Increased Warmth (To left lateral ankle). No: Erythema, Jaundice, Mottled, Pallor, Petechiae Course - Vital Signs Last Recorded V/S: Last Vital Signs Temp 97.9 F 02/04/21 16:52 Pulse 70 06/26/21 16:52 Resp 18 02/04/21 16:52 BP 150/91 H 02/04/21 16:52 Pulse Ox 97 02/04/21 16:52 - Radiology Interpretation Free Text/Narrative:: [facility] Final Radiology Report Call: [phone] assistance Online chat: [email or web address] Name: TA BEE Age: 50Years F Date: 02/04/2021 SSN: -- : [id number] Study: CR ANKLE MIN 3V LT Requesting Physician: Nicki Long Images: 3 Addl Studies: Provided Clinical History: Tripped and inwardly rotated ankle Contrast: Contrast Medium: Contrast Amount: Contrast Method: CONFIDENTIALITY STATEMENT This report is intended only for use by the referring physician, and only in accordance with law. If you received this in error, call [phone]. Page 1 of 1 PROCEDURE INFORMATION: Exam: XR Left Ankle Exam date and time: 02/04/2021 5:34 PM Age: 50 years old Clinical indication: Other: Pain/lateral swelling--hx previous FX; Additional info: Tripped and inwardly rotated ankle TECHNIQUE: Imaging protocol: XR Left ankle. Views: 3 or more views. COMPARISON: CR ANKLE LT 3 VIEW 11/27/2006 1:15 AM FINDINGS: Bones/joints: The bones appear intact. No acute fracture is identified. There is an old fracture deformity of the distal fibula. The ankle mortise is congruent. No ankle joint effusion is seen. There is a large plantar calcaneal spur. Two threaded screws are visualized in the 1st metatarsal bone. Soft tissues: There is soft tissue swelling surrounding the ankle. IMPRESSION: Diffuse soft tissue swelling. No acute fracture appreciated. Thank you for allowing us to participate in the care of your patient. Dictated and Authenticated by: Kacy Herrera MD 02/04/2021 6:32 PM Central Time ([place] & [place]) - Re-Assessments/Exams Free Text/Narrative Re-Assessment/Exam: 02/04/21 X-ray of left ankle obtained. No additional pain medication administered at this time due to patient's lethargy. Findings of examination and imaging reviewed with patient. Discussed supportive cares for ankle sprain as well as red flag signs and symptoms which would warrant reevaluation. Patient verbalized understanding and agreement with the plan of care. Departure - Departure Time of Disposition: 18:42 Disposition: Home, Self-Care 01 Condition: Good Clinical Impression: Left ankle sprain Qualifiers: Encounter type: initial encounter Involved ligament of ankle: unspecified ligament Qualified Code(s): S93.402A - Sprain of unspecified ligament of left ankle, initial encounter - Discharge Information *PRESCRIPTION DRUG MONITORING PROGRAM REVIEWED*: Not Applicable *COPY OF PRESCRIPTION DRUG MONITORING REPORT IN PATIENT RONA: Not Applicable Instructions: Ankle Sprain Forms: ED Department Discharge Additional Instructions: 1.) You may take ibuprofen (Advil/Motrin) 400mg every six hours, as pain and swelling persists. You may also take acetaminophen (Tylenol) 650mg every six hours, as pain persists. You may stagger these medications so you are receiving a dose every three hours. 2.) You may apply ice to the affected area, as swelling persists; 20 minutes on every hour. 3.) Elevate extremity above heart while at rest, but continue to walk, as tolerated. 4.) Follow up with primary care provider should pain or swelling not improve within 7-10 days. Sepsis Event Note (ED) - Evaluation Sepsis Screening Result: No Definite Risk
--- NOTE | 2021-02-04 18:32 | CR ---
PROCEDURE INFORMATION: Exam: XR Left Ankle Exam date and time: 02/04/2021 5:34 PM Age: 50 years old Clinical indication: Other: Pain/lateral swelling--hx previous FX; Additional info: Tripped and inwardly rotated ankle TECHNIQUE: Imaging protocol: XR Left ankle. Views: 3 or more views. COMPARISON: CR ANKLE LT 3 VIEW 11/27/2006 1:15 AM FINDINGS: Bones/joints: The bones appear intact. No acute fracture is identified. There is an old fracture deformity of the distal fibula. The ankle mortise is congruent. No ankle joint effusion is seen. There is a large plantar calcaneal spur. Two threaded screws are visualized in the 1st metatarsal bone. Soft tissues: There is soft tissue swelling surrounding the ankle. IMPRESSION: Diffuse soft tissue swelling. No acute fracture appreciated.
== END 2021-02-04 18:46 | disposition home or self-care (01) ==
LOC: DL.ED 16:37
DX: S93.402A Sprain of unspecified ligament of left ankle, initial encounter (principal); I10 Essential (primary) hypertension; J45.909 Unspecified asthma, uncomplicated; G62.9 Polyneuropathy, unspecified; E66.9 Obesity, unspecified; Z68.41 Body mass index [BMI] 40.0-44.9, adult; Z88.6 Allergy status to analgesic agent; Z88.5 Allergy status to narcotic agent; X50.9XXA Other and unspecified overexertion or strenuous movements or postures, initial encounter
CPT/HCPCS: 73610-LT; 99284-25

== ENCOUNTER 2021-05-28 18:44 | Emergency (ER) | payer MEDICAID ==
[2021-05-28 19:08] VITALS: BP 158/98; PULSE 83
[2021-05-28] MEDS ORDERED: Dexamethasone 4 MG/ML SDV IM ONE (19:33)
[2021-05-28] MEDS ORDERED: Orphenadrine 60 MG/2 ML Inj IM ONE (19:33)
--- NOTE | 2021-05-28 19:36 | EDM.PDOC ---
ED HPI GENERAL MEDICAL PROBLEM - General Chief Complaint: Cardiovascular Problem Stated Complaint: LEGS PUFFY & FEET, PAIN Time Seen by Provider: 05/28/21 19:28 Source of Information: Reports: Patient, RN, RN Notes Reviewed History Limitations: Reports: No Limitations - History of Present Illness INITIAL COMMENTS - FREE TEXT/NARRATIVE: Patient is a 50-year-old female who presents to ER with complaint of numbness to the legs bilaterally for the past 2 days. Patient states pain to both knees for the past 2 days as well. Patient states she has been up and ambulating. Denies any falls or recent injury. Patient states she does have chronic knee pain but this is increased. Also has chronic back pain, L2 L5 bulging disks. Patient reports shooting pain down the right and left leg laterally. Patient states no saddle anesthesia, loss of bowel or bladder. 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 Bilateral Leg Pain Score (Numeric/FACES): 6 - Related Data Allergies Allergy/AdvReac Type Severity Reaction Status Date / Time acetaminophen [From Percocet] Allergy Itching Verified 05/28/21 19:10 oxycodone HCl [From Percocet] Allergy Itching Verified 05/28/21 19:10 Home Meds: Home Meds Albuterol Sulfate [Albuterol Sulfate Hfa] 2 puff INH QID PRN 12/24/18 [History] Furosemide 20 mg PO DAILY 12/24/18 [History] Diclofenac Submicronized [Diclofenac] 50 mg PO TIDMEALS 11/27/20 [History] Cetirizine [ZyrTEC] 10 mg PO DAILY 04/14/21 [History] Ibuprofen 400 mg PO Q6HR PRN 04/14/21 [History] Pantoprazole [ProTONIX] 40 mg PO DAILY 04/14/21 [History] lisinopriL [Lisinopril] 10 mg PO DAILY 04/14/21 [History] Past Medical History - Past Health History Medical/Surgical History: Denies Medical/Surgical History HEENT History: Reports: None Cardiovascular History: Reports: Hypertension Respiratory History: Reports: Asthma, Bronchitis, Recurrent, Sleep Apnea Other Respiratory History: CPAP Gastrointestinal History: Reports: Hemorrhoids Genitourinary History: Reports: None 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 Musculoskeletal History: Reports: Arthritis, Osteoarthritis Neurological History: Reports: Neuropathy, Peripheral Psychiatric History: Reports: None Endocrine/Metabolic History: Reports: Obesity/BMI 30+ Hematologic History: Reports: None Immunologic History: Reports: None Oncologic (Cancer) History: Reports: None Dermatologic History: Reports: None - Infectious Disease History Infectious Disease History: Reports: None - Past Surgical History Head Surgeries/Procedures: Reports: None HEENT Surgical History: Reports: None Cardiovascular Surgical History: Reports: None Respiratory Surgical History: Reports: None GI Surgical History: Reports: Colonoscopy Female Surgical History: Reports: None Musculoskeletal Surgical History: Reports: Other (See Below) Other Musculoskeletal Surgeries/Procedures:: foot surg. Social & Family History - Family History Family Medical History: No Pertinent Family History - Tobacco Use Tobacco Use Status *Q: Never Tobacco User - Caffeine Use Caffeine Use: Reports: None Caffeine Use Comment: 1 cup of coffee in the morning - Recreational Drug Use Recreational Drug Use: No - Living Situation & Occupation Living situation: Reports: with Family Occupation: Employed ED ROS GENERAL - Review of Systems Review Of Systems: Comprehensive ROS is negative, except as noted in HPI. ED EXAM, GENERAL - Physical Exam Exam: See Below Exam Limited By: No Limitations General Appearance: Alert, WD/WN, No Apparent Distress Eye Exam: Bilateral Eye: EOMI, Normal Inspection Ears: Normal External Exam, Hearing Grossly Normal Nose: Normal Inspection Throat/Mouth: Normal Inspection, Normal Voice, No Airway Compromise Head: Atraumatic, Normocephalic Neck: Normal Inspection, Supple, Non-Tender, Full Range of Motion Respiratory/Chest: No Respiratory Distress, Lungs Clear, Normal Breath Sounds, No Accessory Muscle Use, Chest Non-Tender Cardiovascular: Normal Peripheral Pulses, Regular Rate, Rhythm, No Edema, No Gallop, No JVD, No Murmur, No Rub Peripheral Pulses: 2+: Radial (L), Radial (R), Dorsalis Pedis (L), Dorsalis Pedis (R) GI/Abdominal: Normal Bowel Sounds, Soft, Non-Tender (Female) Exam: Deferred Rectal (Female) Exam: Deferred Back Exam: Normal Inspection, Decreased Range of Motion, Paraspinal Tenderness, Vertebral Tenderness Extremities: Limited Range of Motion (knees bilaterally), Other (numbness and tingling to the legs bilaterally. ) Neurological: Alert, Oriented, CN II-XII Intact, Normal Cognition, Normal Gait, Normal Reflexes, No Motor/Sensory Deficits Psychiatric: Normal Affect, Normal Mood Skin Exam: Warm, Dry, Intact, Normal Color, No Rash Lymphatic: No Adenopathy Course - Vital Signs Last Recorded V/S: Last Vital Signs Temp 98 F 05/28/21 18:50 Pulse 83 05/28/21 18:50 Resp 18 05/28/21 18:50 BP 158/98 H 05/28/21 18:50 Pulse Ox 96 05/28/21 18:50 - Orders/Labs/Meds Meds: Medications Discontinued Medications Generic Name Dose Route Start Last Admin Trade Name Ze PRN Reason Stop Dose Admin Dexamethasone 4 mg 05/28/21 19:33 05/28/21 19:39 Dexamethasone 4 Mg/Ml Sdv IM 05/28/21 19:34 4 mg ONETIME ONE Administration Orphenadrine Citrate 60 mg 05/28/21 19:33 05/28/21 19:39 Orphenadrine 60 Mg/2 Ml Inj IM 05/28/21 19:34 60 mg ONETIME ONE Administration Departure - Departure Time of Disposition: 19:35 Disposition: Home, Self-Care 01 Reason for Transfer *Q: Other Condition: Fair Clinical Impression: Sciatica Qualifiers: Laterality: bilateral Qualified Code(s): M54.31 - Sciatica, right side Instructions: Sciatica, [id number] Referrals: Moedsto العراقي [Primary Care Provider] - Forms: ED Department Discharge Additional Instructions: RX: Cyclobenzaprine 10mg orally once every 8 hours as needed for muscle spasm RX: Dexamethasone 2mg orally twice daily for 4 days Return to the ER with any worsening of symptoms Follow up with your primary care facility Sepsis Event Note (ED) - Evaluation Sepsis Screening Result: No Definite Risk - Focused Exam Vital Signs: Vital Signs Temp Pulse Resp BP Pulse Ox 05/28/21 18:50 98 F 83 18 158/98 H 96
== END 2021-05-28 19:58 | disposition home or self-care (01) ==
LOC: DL.ED 18:44
DX: M54.31 Sciatica, right side (principal); M54.32 Sciatica, left side; I10 Essential (primary) hypertension; J45.909 Unspecified asthma, uncomplicated; M19.90 Unspecified osteoarthritis, unspecified site; E66.9 Obesity, unspecified; Z68.41 Body mass index [BMI] 40.0-44.9, adult; Z88.5 Allergy status to narcotic agent; Z79.899 Other long term (current) drug therapy
CPT/HCPCS: 96372; 99283; J1100; J2360

== ENCOUNTER 2021-07-03 13:13 | Emergency (ER) | payer MEDICAID ==
[2021-07-03 14:24] VITALS: BP 121/75; PULSE 96
[2021-07-03 14:26] LABS: ANION GAP 11.2 mEq/L (7-13); CHLORIDE,CL 105 mmol/L (98-107); SODIUM,NA 139 mmol/L (136-145)
[2021-07-03 14:30] LABS: CORONAVIRUS COVID-19 NAA NEGATIVE (NEGATIVE)
--- NOTE | 2021-07-03 15:30 | EDM.PDOC ---
ED HPI GENERAL MEDICAL PROBLEM - General Chief Complaint: Chest Pain Stated Complaint: [id number] CHEST PAIN COUGHING Time Seen by Provider: 07/03/21 15:00 Source of Information: Reports: Patient History Limitations: Reports: No Limitations - History of Present Illness INITIAL COMMENTS - FREE TEXT/NARRATIVE: This 50 yo female patient reports to the ED due to a cough and upper chest pain due to the cough. The patient also reports she has pressure in her face and head. The patient reports she has been coughing up greenish phlegm. Duration: Week(s): Location: Reports: Face Quality: Reports: Ache, Dull, Pressure Severity: Moderate Improves with: Reports: None Worsens with: Reports: None Associated Symptoms: Reports: Cough, Headaches Middle Chest Pain Score (Numeric/FACES): 7 - Related Data Allergies Allergy/AdvReac Type Severity Reaction Status Date / Time acetaminophen [From Percocet] Allergy Itching Verified 07/03/21 14:24 oxycodone HCl [From Percocet] Allergy Itching Verified 07/03/21 14:24 Home Meds: Home Meds Albuterol Sulfate [Albuterol Sulfate Hfa] 2 puff INH QID PRN 12/24/18 [History] Furosemide 20 mg PO DAILY 12/24/18 [History] Diclofenac Submicronized [Diclofenac] 50 mg PO TIDMEALS 11/27/20 [History] Cetirizine [ZyrTEC] 10 mg PO DAILY 04/14/21 [History] Ibuprofen 400 mg PO Q6HR PRN 04/14/21 [History] Pantoprazole [ProTONIX] 40 mg PO DAILY 04/14/21 [History] lisinopriL [Lisinopril] 10 mg PO DAILY 04/14/21 [History] Past Medical History - Past Health History Medical/Surgical History: Denies Medical/Surgical History HEENT History: Reports: None Cardiovascular History: Reports: Hypertension Respiratory History: Reports: Asthma, Bronchitis, Recurrent, Sleep Apnea Other Respiratory History: CPAP Gastrointestinal History: Reports: Hemorrhoids Genitourinary History: Reports: None 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 Musculoskeletal History: Reports: Arthritis, Osteoarthritis Neurological History: Reports: Neuropathy, Peripheral Psychiatric History: Reports: None Endocrine/Metabolic History: Reports: Obesity/BMI 30+ Hematologic History: Reports: None Immunologic History: Reports: None Oncologic (Cancer) History: Reports: None Dermatologic History: Reports: None - Infectious Disease History Infectious Disease History: Reports: None - Past Surgical History Head Surgeries/Procedures: Reports: None HEENT Surgical History: Reports: None Cardiovascular Surgical History: Reports: None Respiratory Surgical History: Reports: None GI Surgical History: Reports: Colonoscopy Female Surgical History: Reports: None Musculoskeletal Surgical History: Reports: Other (See Below) Other Musculoskeletal Surgeries/Procedures:: foot surg. Social & Family History - Family History Family Medical History: No Pertinent Family History - Tobacco Use Tobacco Use Status *Q: Never Tobacco User Second Hand Smoke Exposure: No - Caffeine Use Caffeine Use: Reports: Coffee Caffeine Use Comment: 1 cup of coffee in the morning - Recreational Drug Use Recreational Drug Use: No - Living Situation & Occupation Living situation: Reports: with Family Occupation: Employed ED ROS GENERAL - Review of Systems Review Of Systems: Comprehensive ROS is negative, except as noted in HPI. ED EXAM, GENERAL - Physical Exam Exam: See Below Exam Limited By: No Limitations General Appearance: Alert, WD/WN, Mild Distress, Obese Eye Exam: Bilateral Eye: EOMI, Normal Inspection, PERRL Ears: Normal External Exam, Normal Canal, Hearing Grossly Normal, Normal TMs Nose: Normal Inspection, Normal Mucosa, No Blood Throat/Mouth: Normal Inspection, Normal Lips, Normal Teeth, Normal Gums, Normal Oropharynx, Normal Voice, No Airway Compromise Head: Facial Tenderness, Sinus Tenderness Neck: Normal Inspection, Supple, Non-Tender, Full Range of Motion Respiratory/Chest: No Respiratory Distress, Lungs Clear, Normal Breath Sounds, No Accessory Muscle Use, Chest Non-Tender Cardiovascular: Normal Peripheral Pulses, Regular Rate, Rhythm, No Edema, No Gallop, No JVD, No Murmur, No Rub GI/Abdominal: Normal Bowel Sounds, Soft, Non-Tender, No Organomegaly, No Distention, No Abnormal Bruit, No Mass (Female) Exam: Deferred Rectal (Female) Exam: Deferred Back Exam: Normal Inspection, Full Range of Motion, NT Extremities: Normal Inspection, Normal Range of Motion, Non-Tender, Normal Capillary Refill, No Pedal Edema Neurological: Alert, Oriented, CN II-XII Intact, Normal Cognition, Normal Gait, Normal Reflexes, No Motor/Sensory Deficits Psychiatric: Normal Affect, Normal Mood Skin Exam: Warm, Dry, Intact, Normal Color, No Rash Lymphatic: No Adenopathy #1 Interpretation EKG Date: 07/03/21 Time: 15:30 Rhythm: NSR Rate (Beats/Min): 79 [place]: Normal P-Wave: Present QRS: Normal ST-T: Normal QT: Normal Comparison: No Change Course - Vital Signs Last Recorded V/S: Last Vital Signs Temp 97.3 F 07/03/21 14:19 Pulse 96 07/03/21 14:19 Resp 16 07/03/21 14:19 BP 121/75 07/03/21 14:19 Pulse Ox 96 07/03/21 14:19 - Orders/Labs/Meds Orders: Active Orders 24 hr Category Date Time Status EKG Documentation Completion [RC] STAT Care 07/03/21 13:40 Active CULTURE BLOOD [BC] Stat Lab 07/03/21 13:35 Received Labs: Laboratory Tests 07/03/21 07/03/21 07/03/21 Range/Units 13:23 13:35 13:35 WBC 8.8 (5.0-10.0) 10^3/uL RBC 4.77 (4.2-5.4) 10^6/uL Hgb 12.6 (12.0-16.0) g/dL Hct 40.8 (37.0-47.0) % MCV 85.5 (80-100) fL MCH 26.4 L (27.0-34.0) pg MCHC 30.9 L (33.0-35.0) g/dL Plt Count 434 (150-450) 10^3/uL Neut % (Auto) 78.6 H (42.2-75.2) % Lymph % (Auto) 14.3 L (20.5-50.1) % [place] % (Auto) 6.1 (2-8) % Eos % (Auto) 0.7 L (1.0-3.0) % Baso % (Auto) 0.3 (0.0-1.0) % Sodium 139 (136-145) mmol/L Potassium 4.2 (3.5-5.1) mmol/L Chloride 105 (98-107) mmol/L Carbon Dioxide 27 (21-32) mmol/L Anion Gap 11.2 (7-13) mEq/L BUN 15 (7-18) mg/dL Creatinine 0.83 (0.55-1.02) mg/dL Est Cr Clr Drug Dosing TNP Estimated GFR (MDRD) > 60 BUN/Creatinine Ratio 18.1 (No establ ref range) Glucose 105 H (70-99) mg/dL Lactic Acid (0.4-2.0) mmol/L Calcium 8.5 (8.5-10.1) mg/dL Total Bilirubin 0.4 (0.2-1.0) mg/dL AST 18 (15-37) U/L ALT 41 (14-59) U/L Alkaline Phosphatase 98 (46-116) U/L Troponin I High Sens < 4 (<=51) pg/mL Total Protein 7.8 (6.4-8.2) g/dL Albumin 3.3 L (3.4-5.0) g/dL Globulin 4.5 Albumin/Globulin Ratio 0.73 Influenza Type A RNA Negative (NEGATIVE) Influenza Type B RNA Negative (NEGATIVE) SARS-CoV-2 RNA (ALICIA) Negative (NEGATIVE) 07/03/21 Range/Units 13:35 WBC (5.0-10.0) 10^3/uL RBC (4.2-5.4) 10^6/uL Hgb (12.0-16.0) g/dL Hct (37.0-47.0) % MCV (80-100) fL MCH (27.0-34.0) pg MCHC (33.0-35.0) g/dL Plt Count (150-450) 10^3/uL Neut % (Auto) (42.2-75.2) % Lymph % (Auto) (20.5-50.1) % [place] % (Auto) (2-8) % Eos % (Auto) (1.0-3.0) % Baso % (Auto) (0.0-1.0) % Sodium (136-145) mmol/L Potassium (3.5-5.1) mmol/L Chloride (98-107) mmol/L Carbon Dioxide (21-32) mmol/L Anion Gap (7-13) mEq/L BUN (7-18) mg/dL Creatinine (0.55-1.02) mg/dL Est Cr Clr Drug Dosing Estimated GFR (MDRD) BUN/Creatinine Ratio (No establ ref range) Glucose (70-99) mg/dL Lactic Acid 1.8 (0.4-2.0) mmol/L Calcium (8.5-10.1) mg/dL Total Bilirubin (0.2-1.0) mg/dL AST (15-37) U/L ALT (14-59) U/L Alkaline Phosphatase (46-116) U/L Troponin I High Sens (<=51) pg/mL Total Protein (6.4-8.2) g/dL Albumin (3.4-5.0) g/dL Globulin Albumin/Globulin Ratio Influenza Type A RNA (NEGATIVE) Influenza Type B RNA (NEGATIVE) SARS-CoV-2 RNA (ALICIA) (NEGATIVE) Departure - Departure Time of Disposition: 15:31 Disposition: Home, Self-Care 01 Condition: Fair Clinical Impression: Acute sinusitis Qualifiers: Sinusitis location: maxillary Recurrence: non-recurrent Qualified Code(s): J01.00 - Acute maxillary sinusitis, unspecified - Discharge Information *PRESCRIPTION DRUG MONITORING PROGRAM REVIEWED*: Not Applicable *COPY OF PRESCRIPTION DRUG MONITORING REPORT IN PATIENT RONA: Not Applicable Instructions: Sinusitis, Adult, [id number] Care Plan Goals: The patient was advised of the examination, lab and EKG results during the visit. The patient was discharged with a script for Augmentin (500/125) #20 to take 1 by mouth 2 times per day for 10 days. If the patient has any additional symptoms or concerns, the patient should either return to the emergency department or visit her primary care facility. Sepsis Event Note (ED) - Evaluation Sepsis Screening Result: No Definite Risk - Focused Exam Vital Signs: Vital Signs Temp Pulse Resp BP Pulse Ox 07/03/21 14:19 97.3 F 96 16 121/75 96 - My Orders Last 24 Hours: My Active Orders 07/03/21 13:35 CULTURE BLOOD [BC] Stat 07/03/21 13:40 EKG Documentation Completion [RC] STAT - Assessment/Plan Last 24 Hours: My Active Orders 07/03/21 13:35 CULTURE BLOOD [BC] Stat 07/03/21 13:40 EKG Documentation Completion [RC] STAT
== END 2021-07-03 15:48 | disposition home or self-care (01) ==
LOC: DL.ED 13:13
DX: J01.00 Acute maxillary sinusitis, unspecified (principal); I10 Essential (primary) hypertension; E66.9 Obesity, unspecified; M19.90 Unspecified osteoarthritis, unspecified site; Z68.30 Body mass index [BMI] 30.0-30.9, adult; Z88.5 Allergy status to narcotic agent; Z88.8 Allergy status to other drugs, medicaments and biological substances; Z79.899 Other long term (current) drug therapy; Z20.822 Contact with and (suspected) exposure to COVID-19
CPT/HCPCS: 0240U; 36415; 80053; 83605; 84484; 85025; 87040; 93005; 99285

== ENCOUNTER 2022-02-03 08:37 | Emergency (ER) | payer MEDICAID ==
[2022-02-03 09:00] VITALS: BP 158/95; PULSE 98
[2022-02-03 09:37] LABS: CORONAVIRUS COVID-19 NAA NEGATIVE (NEGATIVE)
[2022-02-03 10:31] LABS: ANION GAP 10.1 mEq/L (7-13)
== END 2022-02-03 11:03 | disposition home or self-care (01) ==
LOC: DL.ED 08:37
DX: J01.00 Acute maxillary sinusitis, unspecified (principal); I10 Essential (primary) hypertension; E66.9 Obesity, unspecified; Z68.38 Body mass index [BMI] 38.0-38.9, adult; Z20.822 Contact with and (suspected) exposure to COVID-19; Z79.899 Other long term (current) drug therapy; Z88.6 Allergy status to analgesic agent
CPT/HCPCS: 0240U; 36415; 80053; 85025; 99283; 99284

== ENCOUNTER 2022-04-07 20:12 | Emergency (ER) | payer BC, MEDICAID, OTHER ==
[2022-04-07] MEDS ORDERED: Ketorolac 30 MG/ML SDV IM ONE (20:46)
[2022-04-07 21:16] VITALS: BP 124/67; PULSE 77
== END 2022-04-07 21:08 | disposition home or self-care (01) ==
LOC: DL.ED 20:12
DX: M25.571 Pain in right ankle and joints of right foot (principal); S96.911D Strain of unspecified muscle and tendon at ankle and foot level, right foot, subsequent encounter; I10 Essential (primary) hypertension; E66.9 Obesity, unspecified; Z68.39 Body mass index [BMI] 39.0-39.9, adult; Z88.6 Allergy status to analgesic agent; Z88.5 Allergy status to narcotic agent; Z79.899 Other long term (current) drug therapy
CPT/HCPCS: 96372; 99283; 99284; J1885

== ENCOUNTER 2022-08-12 20:43 | Emergency (ER) | payer MEDICAID ==
[2022-08-12] MEDS ORDERED: Sodium Chloride 0.9% 10 ML Syringe FLUSH PRN (20:50)
[2022-08-12 21:00] VITALS: BP 142/83; PULSE 95
[2022-08-12 21:23] LABS: ANION GAP 8.9 mEq/L (7-13)
[2022-08-12] MEDS ORDERED: Ketorolac 30 MG/ML SDV IVPUSH ONE (22:21)
[2022-08-12] MEDS ORDERED: Orphenadrine 60 MG/2 ML Inj IM ONE (22:21)
== END 2022-08-12 22:51 | disposition home or self-care (01) ==
LOC: DL.ED 20:43
DX: M54.50 Low back pain, unspecified (principal); R19.5 Other fecal abnormalities; I10 Essential (primary) hypertension; E66.9 Obesity, unspecified; Z88.5 Allergy status to narcotic agent; Z88.8 Allergy status to other drugs, medicaments and biological substances; Z79.899 Other long term (current) drug therapy; Z68.38 Body mass index [BMI] 38.0-38.9, adult
CPT/HCPCS: 36415; 72100; 80053; 81003; 85025; 96372; 96374; 99284; J1885; J2360; J3490

== ENCOUNTER 2022-09-24 18:37 | Emergency (ER) | payer MEDICAID ==
[2022-09-24 19:02] VITALS: BP 149/80; PULSE 78
[2022-09-24] MEDS ORDERED: Ketorolac 30 MG/ML SDV IM ONE (19:24)
[2022-09-24] MEDS ORDERED: Orphenadrine 60 MG/2 ML Inj IM ONE (19:24)
== END 2022-09-24 19:50 | disposition home or self-care (01) ==
LOC: DL.ED 18:37
DX: M54.50 Low back pain, unspecified (principal); I10 Essential (primary) hypertension; E66.9 Obesity, unspecified; Z68.39 Body mass index [BMI] 39.0-39.9, adult; Z88.6 Allergy status to analgesic agent; Z79.899 Other long term (current) drug therapy
CPT/HCPCS: 96372; 99283; J1885; J2360

== ENCOUNTER 2022-09-26 09:55 | Emergency (ER) | payer MEDICAID ==
[2022-09-26 10:07] VITALS: BP 157/88; PULSE 62
[2022-09-26] MEDS: Lidocaine 5% 700 MG Patch TOP ONE (10:28)
[2022-09-26] MEDS: Dexamethasone 4 MG/ML SDV IVPUSH ONE (10:45)
== END 2022-09-26 11:00 | disposition home or self-care (01) ==
LOC: DL.ED 09:55
DX: M54.50 Low back pain, unspecified (principal); I10 Essential (primary) hypertension; E66.9 Obesity, unspecified; Z68.41 Body mass index [BMI] 40.0-44.9, adult; Z88.5 Allergy status to narcotic agent; Z88.8 Allergy status to other drugs, medicaments and biological substances; Z79.899 Other long term (current) drug therapy; X50.1XXA Overexertion from prolonged static or awkward postures, initial encounter
CPT/HCPCS: 72131; 96374; 99283; 99284-25; A9270-GY; J1100

== ENCOUNTER 2022-11-04 20:36 | Emergency (ER) | payer BC, MEDICAID ==
[2022-11-04 21:21] VITALS: BP 131/78; PULSE 98
[2022-11-04] MEDS ORDERED: Acetaminophen/HYDROcodone 325-5 MG Tab ONE (22:03)
[2022-11-04] MEDS ORDERED: Ketorolac 30 MG/ML SDV IM ONE (22:04)
== END 2022-11-04 22:16 | disposition home or self-care (01) ==
LOC: DL.ED 20:36
DX: S39.011A Strain of muscle, fascia and tendon of abdomen, initial encounter (principal); I10 Essential (primary) hypertension; E66.9 Obesity, unspecified; Z68.30 Body mass index [BMI] 30.0-30.9, adult; Z88.5 Allergy status to narcotic agent; Z88.8 Allergy status to other drugs, medicaments and biological substances; Z79.899 Other long term (current) drug therapy
CPT/HCPCS: 81003; 96372; 99283; 99284; J1885

== ENCOUNTER 2022-12-02 13:23 | Emergency (ER) | payer BC, MEDICAID ==
[2022-12-02 13:32] VITALS: BP 152/82; PULSE 72
[2022-12-02] MEDS ORDERED: Sodium Chloride 0.9% 1,000 ML IV ONE (13:33)
[2022-12-02] MEDS ORDERED: Ketorolac 30 MG/ML SDV IVPUSH ONE (13:36)
[2022-12-02] MEDS ORDERED: Ondansetron 4 MG/2 ML SDV IVPUSH ONE (13:41)
[2022-12-02] MEDS ORDERED: methylPREDNISolone Sodium Succinate 125 MG/2 ML SDV IVPUSH ONE (13:41)
[2022-12-02 14:13] LABS: ANION GAP 10.9 mEq/L (7-13)
[2022-12-02] MEDS ORDERED: fentaNYL 100 MCG/2 ML SDV IVPUSH ONE (15:21)
== END 2022-12-02 15:33 | disposition home or self-care (01) ==
LOC: DL.ED 13:23
DX: G44.209 Tension-type headache, unspecified, not intractable (principal); I10 Essential (primary) hypertension; E66.9 Obesity, unspecified; Z68.39 Body mass index [BMI] 39.0-39.9, adult; Z88.5 Allergy status to narcotic agent; Z88.8 Allergy status to other drugs, medicaments and biological substances; Z79.899 Other long term (current) drug therapy
CPT/HCPCS: 36415; 70450; 80053; 85025; 96361; 96374; 96375; 99284; J2405; J2930; J3010; J7030

== ENCOUNTER 2022-12-07 16:03 | Emergency (ER) | payer MEDICAID ==
[2022-12-07] MEDS ORDERED: diphenhydrAMINE 50 MG/ML SDV IVPUSH ONE (16:20)
[2022-12-07] MEDS ORDERED: Sodium Chloride 0.9% 10 ML Syringe FLUSH PRN (16:20)
[2022-12-07] MEDS ORDERED: Ketorolac 30 MG/ML SDV IVPUSH ONE (16:20)
[2022-12-07] MEDS ORDERED: Metoclopramide 10 MG/2 ML SDV IVPUSH ONE (16:20)
[2022-12-07] MEDS ORDERED: Sodium Chloride 0.9% 1,000 ML IV ONE (16:20)
[2022-12-07 16:52] VITALS: BP 135/80; PULSE 76
== END 2022-12-07 17:36 | disposition home or self-care (01) ==
LOC: DL.ED 16:03
DX: G44.209 Tension-type headache, unspecified, not intractable (principal); H53.2 Diplopia; I10 Essential (primary) hypertension; J45.909 Unspecified asthma, uncomplicated; E66.9 Obesity, unspecified; Z68.39 Body mass index [BMI] 39.0-39.9, adult; Z88.5 Allergy status to narcotic agent; Z88.8 Allergy status to other drugs, medicaments and biological substances; Z79.899 Other long term (current) drug therapy; Z86.16 Personal history of COVID-19
CPT/HCPCS: 96361; 96374; 96375; 99283; J1200; J1885; J2765; J7030; J3490

== ENCOUNTER 2022-12-26 15:26 | Emergency (ER) | payer MEDICAID ==
[2022-12-26] MEDS ORDERED: LORazepam 2 MG/ML SDV IVPUSH ONE (15:41)
[2022-12-26 15:44] VITALS: BP 148/73; PULSE 81
[2022-12-26 15:46] LABS: BASOPHILS PERCENT AUTO 0.2 % (0.0-1.0); EOSINOPHILS PERCENT AUTO 1.9 % (1.0-3.0); HEMATOCRIT 39.8 % (37.0-47.0); HEMOGLOBIN 12.5 g/dL (12.0-16.0); LYMPHOCYTES PERCENT AUTO 19.7 % (20.5-50.1); MEAN CORPUSCULAR HEMOGLOBIN 25.8 pg (27.0-34.0); MEAN CORPUSCULAR HGB CONC 31.4 g/dL (33.0-35.0); MEAN CORPUSCULAR VOLUME 82.1 fL (80-100); NEUTROPHILS PERCENT AUTO 72.2 % (42.2-75.2); PLATELET COUNT,PLT 357 10^3/uL (150-450); RED BLOOD CELL COUNT 4.85 10^6/uL (4.2-5.4); WHITE BLOOD CELL COUNT,WBC 9.3 10^3/uL (5.0-10.0)
[2022-12-26 16:07] LABS: A/G RATIO 0.9; ALBUMIN 3.5 g/dL (3.4-5.0); ANION GAP 13.8 mEq/L (7-13); BILIRUBIN TOTAL 0.4 mg/dL (0.2-1.0); BUN/CREATININE RATIO 22.5 (No establ ref range); CALCIUM 8.8 mg/dL (8.5-10.1); CREATININE 0.71 mg/dL (0.55-1.02); EST CRCL DRUG DOSING (CG) 99.07 mL/min; POTASSIUM,K 3.8 mmol/L (3.5-5.1); PROTEIN TOTAL,TP 7.5 g/dL (6.4-8.2)
== END 2022-12-26 17:52 | disposition home or self-care (01) ==
LOC: DL.ED 15:26
DX: R07.9 Chest pain, unspecified (principal); I10 Essential (primary) hypertension; J45.909 Unspecified asthma, uncomplicated; E66.9 Obesity, unspecified; Z68.39 Body mass index [BMI] 39.0-39.9, adult; Z88.5 Allergy status to narcotic agent; Z79.899 Other long term (current) drug therapy; Z86.16 Personal history of COVID-19
CPT/HCPCS: 36415; 71045; 80053; 84484; 85025; 93005; 93010; 96374; 99284; 99285; J2060

== ENCOUNTER 2023-01-18 22:32 | Emergency (ER) | payer MEDICAID ==
[2023-01-18] MEDS ORDERED: Ketorolac 30 MG/ML SDV IM ONE (23:07)
[2023-01-18] MEDS ORDERED: Orphenadrine 60 MG/2 ML Inj IM ONE (23:07)
[2023-01-18 23:31] VITALS: BP 117/76; PULSE 76
== END 2023-01-18 23:53 | disposition home or self-care (01) ==
LOC: DL.ED 22:32
DX: M54.41 Lumbago with sciatica, right side (principal); I10 Essential (primary) hypertension; J45.909 Unspecified asthma, uncomplicated; E66.9 Obesity, unspecified; Z68.41 Body mass index [BMI] 40.0-44.9, adult; Z86.16 Personal history of COVID-19; Z88.5 Allergy status to narcotic agent
CPT/HCPCS: 96372; 99283; 99284; J1885; J2360

== ENCOUNTER 2023-02-12 10:45 | Emergency (ER) | payer MEDICAID ==
[2023-02-12] MEDS ORDERED: Ketorolac 30 MG/ML SDV IM ONE (11:06)
[2023-02-12] MEDS ORDERED: Take Home: Cyclobenzaprine 10 MG Tab, 4 Tab Pack PO ONE (11:07)
[2023-02-12] MEDS ORDERED: Orphenadrine 60 MG/2 ML Inj IM ONE (11:07)
[2023-02-12 11:42] VITALS: BP 132/84; PULSE 68
== END 2023-02-12 12:10 | disposition home or self-care (01) ==
LOC: DL.ED 10:45
DX: G89.29 Other chronic pain (principal); M54.50 Low back pain, unspecified; I10 Essential (primary) hypertension; J45.909 Unspecified asthma, uncomplicated; E66.9 Obesity, unspecified; Z86.16 Personal history of COVID-19; Z88.5 Allergy status to narcotic agent; Z88.8 Allergy status to other drugs, medicaments and biological substances; Z79.899 Other long term (current) drug therapy; Z68.38 Body mass index [BMI] 38.0-38.9, adult
CPT/HCPCS: 96372; 99283; 99284; A9270-GY; J1885; J2360

== ENCOUNTER 2023-03-10 21:28 | Emergency (ER) | payer BC, MEDICAID ==
[2023-03-10 21:42] VITALS: BP 144/82
[2023-03-10] MEDS ORDERED: Bupivacaine 0.5%/EPINEPHrine 1:200,000 10 ML SDV INJECT ONE (23:58)
[2023-03-11] MEDS ORDERED: Bupivacaine 0.25% 10 ML SDV INJECT ONE (00:23)
[2023-03-11 02:13] VITALS: PULSE 76
== END 2023-03-11 02:12 | disposition home or self-care (01) ==
LOC: DL.ED 21:28
DX: M54.16 Radiculopathy, lumbar region (principal); M53.3 Sacrococcygeal disorders, not elsewhere classified; I10 Essential (primary) hypertension; Z88.5 Allergy status to narcotic agent; Z88.8 Allergy status to other drugs, medicaments and biological substances; Z86.16 Personal history of COVID-19; Z79.899 Other long term (current) drug therapy
CPT/HCPCS: 20552; 99283; 99284; J3490

== ENCOUNTER 2023-03-27 10:13 | Emergency (ER) | payer MEDICAID ==
[2023-03-27] MEDS ORDERED: Aspirin 81 MG Tab.Chew PO ONE (10:32)
[2023-03-27 10:44] LABS: BASOPHILS PERCENT AUTO 0.4 % (0.0-1.0); EOSINOPHILS PERCENT AUTO 2.2 % (1.0-3.0); HEMATOCRIT 41.9 % (37.0-47.0); HEMOGLOBIN 13.4 g/dL (12.0-16.0); LYMPHOCYTES PERCENT AUTO 24.1 % (20.5-50.1); MEAN CORPUSCULAR HEMOGLOBIN 26.7 pg (27.0-34.0); MEAN CORPUSCULAR VOLUME 83.6 fL (80-100); MONOCYTES PERCENT AUTO 6.4 % (2-8); NEUTROPHILS PERCENT AUTO 66.9 % (42.2-75.2); PLATELET COUNT,PLT 407 10^3/uL (150-450); RED BLOOD CELL COUNT 5.01 10^6/uL (4.2-5.4); WHITE BLOOD CELL COUNT,WBC 6.9 10^3/uL (5.0-10.0)
[2023-03-27 11:02] VITALS: BP 131/81; PULSE 70
[2023-03-27 11:06] LABS: A/G RATIO 0.8; ALBUMIN 3.4 g/dL (3.4-5.0); ANION GAP 12.1 mEq/L (7-13); BILIRUBIN TOTAL 0.6 mg/dL (0.2-1.0); BUN/CREATININE RATIO 18.9 (No establ ref range); CALCIUM 8.9 mg/dL (8.5-10.1); CREATININE 0.74 mg/dL (0.55-1.02); EST CRCL DRUG DOSING (CG) 95.05 mL/min; POTASSIUM,K 4.1 mmol/L (3.5-5.1); PROTEIN TOTAL,TP 7.6 g/dL (6.4-8.2)
== END 2023-03-27 12:37 | disposition home or self-care (01) ==
LOC: DL.ED 10:13
DX: R07.89 Other chest pain (principal); E66.9 Obesity, unspecified; Z68.39 Body mass index [BMI] 39.0-39.9, adult; J45.909 Unspecified asthma, uncomplicated; Z88.5 Allergy status to narcotic agent; Z79.899 Other long term (current) drug therapy
CPT/HCPCS: 36415; 80053; 84484; 85025; 93005; 93010; 99284; 99285; A9270

== ENCOUNTER 2023-03-29 21:33 | Emergency (ER) | payer MEDICAID ==
[2023-03-29] MEDS ORDERED: Ketorolac 30 MG/ML SDV IM ONE (22:01)
[2023-03-29] MEDS ORDERED: predniSONE 20 MG Tab PO ONE (22:03)
[2023-03-29 22:07] VITALS: BP 124/66; PULSE 82
== END 2023-03-29 23:22 | disposition home or self-care (01) ==
LOC: DL.ED 21:33
DX: M54.17 Radiculopathy, lumbosacral region (principal); G89.29 Other chronic pain; I10 Essential (primary) hypertension; E66.9 Obesity, unspecified; Z68.39 Body mass index [BMI] 39.0-39.9, adult; Z86.16 Personal history of COVID-19; Z88.6 Allergy status to analgesic agent; Z88.5 Allergy status to narcotic agent; Z79.899 Other long term (current) drug therapy
CPT/HCPCS: 96372; 99284; J1885; J7512; 99283

== ENCOUNTER 2023-06-05 15:25 | Emergency (ER) | payer MEDICAID ==
[2023-06-05] MEDS ORDERED: Orphenadrine 60 MG/2 ML Inj IM ONE (15:30)
[2023-06-05] MEDS ORDERED: fentaNYL 100 MCG/2 ML SDV IVPUSH ONE (15:31)
[2023-06-05 15:40] VITALS: BP 139/73; PULSE 87
== END 2023-06-05 17:09 | disposition home or self-care (01) ==
LOC: DL.ED 15:25
DX: M54.17 Radiculopathy, lumbosacral region (principal); I10 Essential (primary) hypertension; E66.9 Obesity, unspecified; Z68.39 Body mass index [BMI] 39.0-39.9, adult; Z88.6 Allergy status to analgesic agent; Z88.5 Allergy status to narcotic agent; Z79.899 Other long term (current) drug therapy; Z86.16 Personal history of COVID-19
CPT/HCPCS: 72131; 96372; 96374; 99284; J2360; J3010

== ENCOUNTER 2023-06-06 14:02 | Emergency (ER) | payer MEDICAID ==
[2023-06-06 14:00] VITALS: BP 146/86; PULSE 82
[2023-06-06] MEDS ORDERED: Ketorolac 30 MG/ML SDV IM ONE (14:05)
[2023-06-06] MEDS ORDERED: fentaNYL 100 MCG/2 ML SDV IM ONE (14:08)
== END 2023-06-06 16:16 | disposition home or self-care (01) ==
LOC: DL.ED 14:02
DX: M54.42 Lumbago with sciatica, left side (principal); M54.17 Radiculopathy, lumbosacral region; F32.A Depression, unspecified; I10 Essential (primary) hypertension; J45.909 Unspecified asthma, uncomplicated; Z86.16 Personal history of COVID-19; Z88.5 Allergy status to narcotic agent; Z79.899 Other long term (current) drug therapy
CPT/HCPCS: 96372; 99283; J1885; J3010

== ENCOUNTER 2023-06-09 16:31 | Emergency (ER) | payer MEDICAID ==
[2023-06-09 16:37] VITALS: BP 149/82; PULSE 74
[2023-06-09] MEDS ORDERED: Sodium Chloride 0.9% 10 ML Syringe FLUSH PRN (16:40)
[2023-06-09] MEDS ORDERED: Ketorolac 30 MG/ML SDV IVPUSH ONE (16:41)
[2023-06-09] MEDS ORDERED: Ondansetron 4 MG/2 ML SDV IVPUSH ONE (16:41)
[2023-06-09 16:55] LABS: BASOPHILS PERCENT AUTO 0.5 % (0.0-1.0); EOSINOPHILS PERCENT AUTO 2.6 % (1.0-3.0); HEMATOCRIT 40.8 % (37.0-47.0); HEMOGLOBIN 13.2 g/dL (12.0-16.0); LYMPHOCYTES PERCENT AUTO 19.8 % (20.5-50.1); MEAN CORPUSCULAR HEMOGLOBIN 27.7 pg (27.0-34.0); MEAN CORPUSCULAR HGB CONC 32.4 g/dL (33.0-35.0); MEAN CORPUSCULAR VOLUME 85.5 fL (80-100); MONOCYTES PERCENT AUTO 5.8 % (2-8); NEUTROPHILS PERCENT AUTO 71.3 % (42.2-75.2); PLATELET COUNT,PLT 395 10^3/uL (150-450); RED BLOOD CELL COUNT 4.77 10^6/uL (4.2-5.4); WHITE BLOOD CELL COUNT,WBC 9.8 10^3/uL (5.0-10.0)
[2023-06-09 17:10] LABS: LACTIC ACID 1.2 mmol/L (0.4-2.0)
[2023-06-09 17:16] LABS: A/G RATIO 0.73; ALBUMIN 3.3 g/dL (3.4-5.0); ANION GAP 10.9 mEq/L (7-13); BILIRUBIN TOTAL 0.3 mg/dL (0.2-1.0); BUN/CREATININE RATIO 13.8 (No establ ref range); C-REACTIVE PROTEIN 0.93 ng/dL (<=0.30); CALCIUM 8.3 mg/dL (8.5-10.1); CREATININE 0.87 mg/dL (0.55-1.02); EST CRCL DRUG DOSING (CG) 61.18 mL/min; POTASSIUM,K 3.9 mmol/L (3.5-5.1); PROTEIN TOTAL,TP 7.8 g/dL (6.4-8.2)
== END 2023-06-09 17:46 | disposition home or self-care (01) ==
LOC: DL.ED 16:31
DX: R11.2 Nausea with vomiting, unspecified (principal); R19.7 Diarrhea, unspecified; G47.30 Sleep apnea, unspecified; I10 Essential (primary) hypertension; E66.9 Obesity, unspecified; Z68.42 Body mass index [BMI] 45.0-49.9, adult; Z86.16 Personal history of COVID-19; Z88.6 Allergy status to analgesic agent; Z88.5 Allergy status to narcotic agent; Z79.899 Other long term (current) drug therapy
CPT/HCPCS: 36415; 80053; 82150; 83605; 83690; 85025; 86140; 96374; 96375; 99283; 99284-25; J1885; J2405; J3490

== ENCOUNTER 2023-06-26 20:08 | Emergency (ER) | payer MEDICAID ==
[2023-06-26 20:35] LABS: BASOPHILS PERCENT AUTO 0.3 % (0.0-1.0); EOSINOPHILS PERCENT AUTO 3.3 % (1.0-3.0); HEMATOCRIT 38.5 % (37.0-47.0); HEMOGLOBIN 12.1 g/dL (12.0-16.0); LYMPHOCYTES PERCENT AUTO 26.6 % (20.5-50.1); MEAN CORPUSCULAR HEMOGLOBIN 27.4 pg (27.0-34.0); MEAN CORPUSCULAR HGB CONC 31.4 g/dL (33.0-35.0); MEAN CORPUSCULAR VOLUME 87.1 fL (80-100); MONOCYTES PERCENT AUTO 7.2 % (2-8); NEUTROPHILS PERCENT AUTO 62.6 % (42.2-75.2); PLATELET COUNT,PLT 449 10^3/uL (150-450); RED BLOOD CELL COUNT 4.42 10^6/uL (4.2-5.4)
[2023-06-26 20:51] VITALS: BP 143/93; PULSE 91
[2023-06-26 20:54] LABS: INR 0.9 (0.9-1.2); PROTHROMBIN TIME 9.4 SEC (9.0-12.0); PTT,PARTIAL THROMBOPLSTIN TIME 26.3 SEC (22.0-34.0)
[2023-06-26 20:57] LABS: A/G RATIO 0.72; ALANINE AMINOTRANSFERASE,ALT 30 U/L (14-59); ALBUMIN 3.1 g/dL (3.4-5.0); ALKALINE PHOSPHATASE 107 U/L (46-116); AMYLASE 61 U/L (25-115); ANION GAP 11.2 mEq/L (7-13); ASPARTATE AMNIOTRANSFERASE,AST 19 U/L (15-37); BILIRUBIN TOTAL 0.3 mg/dL (0.2-1.0); BLOOD UREA NITROGEN,BUN 15 mg/dL (7-18); BUN/CREATININE RATIO 16.1 (No establ ref range); C-REACTIVE PROTEIN 1.33 ng/dL (<=0.50); CALCIUM 8.4 mg/dL (8.5-10.1); CARBON DIOXIDE,CO2 27 mmol/L (21-32); CHLORIDE,CL 106 mmol/L (98-107); CREATININE 0.93 mg/dL (0.55-1.02); EST CRCL DRUG DOSING (CG) 75.63 mL/min; ESTIMATED GFR 75 mL/min (>=60); GLUCOSE RANDOM 118 mg/dL (70-99); LIPASE 28 U/L (16-77); POTASSIUM,K 4.2 mmol/L (3.5-5.1); PROTEIN TOTAL,TP 7.4 g/dL (6.4-8.2); SODIUM,NA 140 mmol/L (136-145)
[2023-06-26 20:59] LABS: LACTIC ACID 1.6 mmol/L (0.4-2.0)
[2023-06-26 21:11] LABS: APPEARANCE,URINE CLEAR (CLEAR); BILIRUBIN,URINE NEGATIVE (NEGATIVE); COLOR,URINE YELLOW (YELLOW); GLUCOSE,URINE NEGATIVE (NEGATIVE); KETONES,URINE NEGATIVE (NEGATIVE); LEUKOCYTE ESTERASE,URINE NEGATIVE (NEGATIVE); NITRITE,URINE NEGATIVE (NEGATIVE); OCCULT BLOOD,URINE NEGATIVE (NEGATIVE); PH,URINE 6.5 (5.0-9.0); PROTEIN,URINE NEGATIVE (NEGATIVE); UROBILINOGEN,URINE >=8.0 mg/dL (0.2-1.0)
[2023-06-26] MEDS ORDERED: Iopamidol 612 MG/ML 100 ML Bottle IVPUSH ONE (21:13)
[2023-06-26] MEDS ORDERED: Acetaminophen 500 MG Tab PO ONE (22:19)
== END 2023-06-26 22:56 | disposition home or self-care (01) ==
LOC: DL.ED 20:08
DX: K80.20 Calculus of gallbladder without cholecystitis without obstruction (principal); K64.8 Other hemorrhoids; J45.909 Unspecified asthma, uncomplicated; I10 Essential (primary) hypertension; E66.9 Obesity, unspecified; Z86.16 Personal history of COVID-19; Z79.899 Other long term (current) drug therapy; Z88.8 Allergy status to other drugs, medicaments and biological substances; Z68.41 Body mass index [BMI] 40.0-44.9, adult
CPT/HCPCS: 36415; 74177; 80053; 81003; 81025; 82150; 82272; 83605; 83690; 84145; 85025; 85610; 85730; 86140; 99284; 99285; A9270-GY; Q9967

== ENCOUNTER 2023-07-07 02:46 | Emergency (ER) | payer MEDICAID ==
[2023-07-07 03:00] VITALS: BP 178/79; PULSE 75
== END 2023-07-07 05:26 | disposition home or self-care (01) ==
LOC: DL.ED 02:46
DX: S93.401A Sprain of unspecified ligament of right ankle, initial encounter (principal); I15.9 Secondary hypertension, unspecified; E66.9 Obesity, unspecified; Z68.41 Body mass index [BMI] 40.0-44.9, adult; Z88.8 Allergy status to other drugs, medicaments and biological substances; Z79.899 Other long term (current) drug therapy; Z86.16 Personal history of COVID-19; X50.1XXA Overexertion from prolonged static or awkward postures, initial encounter
CPT/HCPCS: 73610-RT; 99283

== ENCOUNTER 2023-07-18 06:41 | Emergency (ER) | payer MEDICAID ==
[2023-07-18 07:00] VITALS: PULSE 77
[2023-07-18] MEDS ORDERED: fentaNYL 100 MCG/2 ML SDV IVPUSH ONE ×2 (07:11→07:51)
[2023-07-18] MEDS ORDERED: Dexamethasone 4 MG/ML SDV IVPUSH ONE (07:11)
[2023-07-18 08:36] VITALS: BP 118/88
== END 2023-07-18 08:52 | disposition home or self-care (01) ==
LOC: DL.ED 06:41
DX: M54.16 Radiculopathy, lumbar region (principal); I10 Essential (primary) hypertension; E66.9 Obesity, unspecified; Z86.16 Personal history of COVID-19; Z79.899 Other long term (current) drug therapy; Z88.6 Allergy status to analgesic agent; Z68.41 Body mass index [BMI] 40.0-44.9, adult
CPT/HCPCS: 96374; 96375; 96376; 99284; J1100; J3010

== ENCOUNTER 2023-08-02 15:32 | Emergency (ER) | payer MEDICAID ==
[2023-08-02] MEDS ORDERED: hydrOXYzine HCl 25 MG Tab PO ONE (15:49)
[2023-08-02 15:58] LABS: BASOPHILS PERCENT AUTO 0.3 % (0.0-1.0); EOSINOPHILS PERCENT AUTO 3.1 % (1.0-3.0); HEMATOCRIT 41.8 % (37.0-47.0); LYMPHOCYTES PERCENT AUTO 20.8 % (20.5-50.1); MEAN CORPUSCULAR HEMOGLOBIN 26.9 pg (27.0-34.0); MEAN CORPUSCULAR HGB CONC 31.1 g/dL (33.0-35.0); MEAN CORPUSCULAR VOLUME 86.4 fL (80-100); MONOCYTES PERCENT AUTO 6.3 % (2-8); NEUTROPHILS PERCENT AUTO 69.5 % (42.2-75.2); PLATELET COUNT,PLT 427 10^3/uL (150-450); RED BLOOD CELL COUNT 4.84 10^6/uL (4.2-5.4); WHITE BLOOD CELL COUNT,WBC 10.1 10^3/uL (5.0-10.0)
[2023-08-02 16:17] LABS: ALBUMIN 3.1 g/dL (3.4-5.0); ANION GAP 14.5 mEq/L (7-13); BILIRUBIN TOTAL 0.6 mg/dL (0.2-1.0); BUN/CREATININE RATIO 16.3 (No establ ref range); CALCIUM 8.4 mg/dL (8.5-10.1); CREATININE 0.92 mg/dL (0.55-1.02); EST CRCL DRUG DOSING (CG) 76.45 mL/min; POTASSIUM,K 3.5 mmol/L (3.5-5.1); PROTEIN TOTAL,TP 7.1 g/dL (6.4-8.2)
[2023-08-02 16:30] LABS: A/G RATIO 0.78
[2023-08-02] MEDS ORDERED: Ketorolac 30 MG/ML SDV IM ONE (18:01)
[2023-08-02 18:13] VITALS: BP 161/80; PULSE 80
== END 2023-08-02 18:52 | disposition home or self-care (01) ==
LOC: DL.ED 15:32
DX: R07.89 Other chest pain (principal); I10 Essential (primary) hypertension; E66.9 Obesity, unspecified; Z86.16 Personal history of COVID-19; Z79.899 Other long term (current) drug therapy; Z88.6 Allergy status to analgesic agent; Z88.5 Allergy status to narcotic agent; Z68.41 Body mass index [BMI] 40.0-44.9, adult
CPT/HCPCS: 36415; 80053; 82947; 84484; 85025; 93005; 96372; 99285; A9270; J1885

== ENCOUNTER 2023-08-18 13:36 | Emergency (ER) | payer MEDICAID | END 2023-08-18 16:29 | disposition left against medical advice (07) | LOC: DL.ED 13:36 | DX: Z53.21 Procedure and treatment not carried out due to patient leaving prior to being seen by health care provider (principal) ==

== ENCOUNTER 2023-09-05 06:18 | Day surgery (SDC) | payer MEDICAID ==
[~2023-09-05 06:18] MED LIST: Dextrose 5%-0.45% NaCl 1,000 ML IV SCH
[2023-09-05] MEDS ORDERED: fentaNYL 100 MCG/2 ML SDV ONE (06:25)
[2023-09-05] MEDS ORDERED: Midazolam 1 MG/ML 2 ML SDV ONE (06:25)
[2023-09-05] MEDS ORDERED: fentaNYL 100 MCG/2 ML SDV IV ONE ×6 (06:25→08:10)
[2023-09-05] MEDS ORDERED: Midazolam 1 MG/ML 2 ML SDV IV ONE ×7 (06:25→08:02)
[2023-09-05 09:53] VITALS: BP 107/69; PULSE 54
== END 2023-09-05 10:28 | disposition home or self-care (01) ==
LOC: DL.ENDO 06:18
PROVIDERS: ATTEND Internal Medicine Gastroenterology
DX: K57.30 Diverticulosis of large intestine without perforation or abscess without bleeding (principal); I10 Essential (primary) hypertension; E66.09 Other obesity due to excess calories; Z68.41 Body mass index [BMI] 40.0-44.9, adult; K80.20 Calculus of gallbladder without cholecystitis without obstruction
CPT/HCPCS: J2250; J3010; J7042

== ENCOUNTER 2023-09-12 19:28 | Emergency (ER) | payer MEDICAID ==
[2023-09-12 19:46] VITALS: BP 153/97; PULSE 96
== END 2023-09-12 21:50 | disposition home or self-care (01) ==
LOC: DL.ED 19:28
DX: S89.92XA Unspecified injury of left lower leg, initial encounter (principal); I10 Essential (primary) hypertension; E66.9 Obesity, unspecified; Z86.16 Personal history of COVID-19; Z88.8 Allergy status to other drugs, medicaments and biological substances; Z79.899 Other long term (current) drug therapy; Z68.41 Body mass index [BMI] 40.0-44.9, adult; X58.XXXA Exposure to other specified factors, initial encounter
CPT/HCPCS: 73560-LT; 99283; 99284

== ENCOUNTER 2023-10-24 20:14 | Emergency (ER) | payer MEDICAID ==
[2023-10-24 20:58] LABS: BASOPHILS PERCENT AUTO 0.1 % (0.0-1.0); EOSINOPHILS PERCENT AUTO 4.5 % (1.0-3.0); HEMATOCRIT 37.7 % (37.0-47.0); HEMOGLOBIN 11.6 g/dL (12.0-16.0); LYMPHOCYTES PERCENT AUTO 25.9 % (20.5-50.1); MEAN CORPUSCULAR HEMOGLOBIN 26.3 pg (27.0-34.0); MEAN CORPUSCULAR HGB CONC 30.8 g/dL (33.0-35.0); MEAN CORPUSCULAR VOLUME 85.5 fL (80-100); MONOCYTES PERCENT AUTO 7.6 % (2-8); NEUTROPHILS PERCENT AUTO 61.9 % (42.2-75.2); PLATELET COUNT,PLT 437 10^3/uL (150-450); RED BLOOD CELL COUNT 4.41 10^6/uL (4.2-5.4); WHITE BLOOD CELL COUNT,WBC 7.5 10^3/uL (5.0-10.0)
[2023-10-24] MEDS: Aspirin 81 MG Tab.Chew PO ONE (21:04)
[2023-10-24] MEDS: LORazepam 2 MG/ML SDV IVPUSH ONE (21:04)
[2023-10-24 21:21] LABS: ALBUMIN 3.1 g/dL (3.4-5.0); BILIRUBIN TOTAL 0.3 mg/dL (0.2-1.0); BUN/CREATININE RATIO 14.6 (No establ ref range); CALCIUM 8.6 mg/dL (8.5-10.1); CREATININE 0.96 mg/dL (0.55-1.02); EST CRCL DRUG DOSING (CG) 73.27 mL/min; PROTEIN TOTAL,TP 7.1 g/dL (6.4-8.2)
[2023-10-24 21:22] LABS: A/G RATIO 0.78
[2023-10-24 22:47] VITALS: BP 119/75; PULSE 80
== END 2023-10-24 23:22 | disposition home or self-care (01) ==
LOC: DL.ED 20:14
DX: F41.9 Anxiety disorder, unspecified (principal); R20.2 Paresthesia of skin; I10 Essential (primary) hypertension; E66.9 Obesity, unspecified; Z68.41 Body mass index [BMI] 40.0-44.9, adult; Z88.6 Allergy status to analgesic agent; Z88.5 Allergy status to narcotic agent; Z79.51 Long term (current) use of inhaled steroids
CPT/HCPCS: 36415; 80053; 84484; 85025; 93005; 93010; 96374; 99284; 99285-25; A9270-GY; J2060

== ENCOUNTER 2023-11-15 13:30 | Emergency (ER) | payer MEDICAID ==
[2023-11-15 13:47] VITALS: BP 125/83; PULSE 79
== END 2023-11-15 15:17 | disposition left against medical advice (07) ==
LOC: DL.ED 13:30
DX: Z53.21 Procedure and treatment not carried out due to patient leaving prior to being seen by health care provider (principal)

== ENCOUNTER 2023-12-10 08:00 | Emergency (ER) | payer MEDICAID ==
[2023-12-10 08:07] VITALS: BP 150/87; PULSE 83
[2023-12-10] MEDS: HYDROmorphone 1 MG/ML Syringe IVPUSH ONE (08:15)
[2023-12-10] MEDS: Lidocaine 5% 700 MG Patch TOP ONE (08:28)
[2023-12-10 08:45] LABS: BASOPHILS PERCENT AUTO 0.6 % (0.0-1.0); EOSINOPHILS PERCENT AUTO 4.2 % (1.0-3.0); HEMATOCRIT 38.5 % (37.0-47.0); HEMOGLOBIN 11.7 g/dL (12.0-16.0); LYMPHOCYTES PERCENT AUTO 19.7 % (20.5-50.1); MEAN CORPUSCULAR HEMOGLOBIN 25.8 pg (27.0-34.0); MEAN CORPUSCULAR HGB CONC 30.4 g/dL (33.0-35.0); MEAN CORPUSCULAR VOLUME 84.8 fL (80-100); MONOCYTES PERCENT AUTO 6.1 % (2-8); NEUTROPHILS PERCENT AUTO 69.4 % (42.2-75.2); PLATELET COUNT,PLT 324 10^3/uL (150-450); RED BLOOD CELL COUNT 4.54 10^6/uL (4.2-5.4); WHITE BLOOD CELL COUNT,WBC 6.9 10^3/uL (5.0-10.0)
[2023-12-10 09:04] LABS: ANION GAP 10.2 mEq/L (7-13); BILIRUBIN TOTAL 0.4 mg/dL (0.2-1.0); CALCIUM 8.6 mg/dL (8.5-10.1); CREATININE 0.84 mg/dL (0.55-1.02); EST CRCL DRUG DOSING (CG) 82.8 mL/min; POTASSIUM,K 4.2 mmol/L (3.5-5.1); PROTEIN TOTAL,TP 6.9 g/dL (6.4-8.2)
[2023-12-10 09:06] LABS: A/G RATIO 0.77
== END 2023-12-10 09:50 | disposition home or self-care (01) ==
LOC: DL.ED 08:00
DX: G89.29 Other chronic pain (principal); M54.50 Low back pain, unspecified; I10 Essential (primary) hypertension; K21.9 Gastro-esophageal reflux disease without esophagitis; Z79.51 Long term (current) use of inhaled steroids; Z79.899 Other long term (current) drug therapy
CPT/HCPCS: 36415; 72100; 80053; 85025; 99284; A9270-GY; J1170

== ENCOUNTER 2023-12-16 17:35 | Emergency (ER) | payer MEDICAID ==
[2023-12-16 20:39] VITALS: BP 135/82; PULSE 88
[2023-12-16] MEDS: Ketorolac 30 MG/ML SDV IM ONE (21:11)
== END 2023-12-16 21:30 | disposition home or self-care (01) ==
LOC: DL.ED 17:35
DX: J06.9 Acute upper respiratory infection, unspecified (principal); I10 Essential (primary) hypertension; K21.9 Gastro-esophageal reflux disease without esophagitis; E66.9 Obesity, unspecified; Z79.899 Other long term (current) drug therapy; Z88.5 Allergy status to narcotic agent; Z68.42 Body mass index [BMI] 45.0-49.9, adult
CPT/HCPCS: 87081; 87430; 96372; 99284; J1885; 99283

== ENCOUNTER 2023-12-23 15:59 | Emergency (ER) | payer MEDICAID ==
[2023-12-23 16:20] VITALS: BP 134/82; PULSE 107
[2023-12-23 17:18] LABS: CORONAVIRUS COVID-19 NAA NEGATIVE (NEGATIVE); INFLUENZA A NAA NEGATIVE (NEGATIVE); INFLUENZA B NAA NEGATIVE (NEGATIVE); RESPIRATORY SYNCYTIAL VIR NAA NEGATIVE (NEGATIVE)
== END 2023-12-23 17:35 | disposition home or self-care (01) ==
LOC: DL.ED 15:59
DX: J06.9 Acute upper respiratory infection, unspecified (principal); I10 Essential (primary) hypertension; Z88.5 Allergy status to narcotic agent; Z79.899 Other long term (current) drug therapy; Z79.51 Long term (current) use of inhaled steroids
CPT/HCPCS: 0241U; 99283

== ENCOUNTER 2023-12-28 06:15 | Emergency (ER) | payer MEDICAID ==
[2023-12-28 06:25] VITALS: BP 124/102; PULSE 93
[2023-12-28 06:43] LABS: BASOPHILS PERCENT AUTO 0.3 % (0.0-1.0); EOSINOPHILS PERCENT AUTO 3.5 % (1.0-3.0); HEMATOCRIT 39.1 % (37.0-47.0); HEMOGLOBIN 12.1 g/dL (12.0-16.0); LYMPHOCYTES PERCENT AUTO 14.4 % (20.5-50.1); MEAN CORPUSCULAR HEMOGLOBIN 25.8 pg (27.0-34.0); MEAN CORPUSCULAR HGB CONC 30.9 g/dL (33.0-35.0); MEAN CORPUSCULAR VOLUME 83.4 fL (80-100); MONOCYTES PERCENT AUTO 8.4 % (2-8); NEUTROPHILS PERCENT AUTO 73.4 % (42.2-75.2); PLATELET COUNT,PLT 466 10^3/uL (150-450); RED BLOOD CELL COUNT 4.69 10^6/uL (4.2-5.4); WHITE BLOOD CELL COUNT,WBC 10.7 10^3/uL (5.0-10.0)
[2023-12-28 06:54] LABS: EST CRCL DRUG DOSING (CG) 99.37 mL/min
[2023-12-28 06:55] LABS: ANION GAP 11.2 mEq/L (7-13); POTASSIUM,K 4.2 mmol/L (3.5-4.9)
[2023-12-28 06:56] LABS: CREATININE 0.7 mg/dL (0.6-1.3)
[2023-12-28] MEDS: Sodium Chloride 0.9% 10 ML Syringe FLUSH PRN (07:03)
[2023-12-28] MEDS: Ketorolac 30 MG/ML SDV IM ONE (07:04)
[2023-12-28 07:05] LABS: APPEARANCE,URINE SLIGHTLY CLOUDY (CLEAR); BILIRUBIN,URINE NEGATIVE (NEGATIVE); COLOR,URINE YELLOW (YELLOW); GLUCOSE,URINE NEGATIVE (NEGATIVE); KETONES,URINE NEGATIVE (NEGATIVE); LEUKOCYTE ESTERASE,URINE SMALL (NEGATIVE); NITRITE,URINE NEGATIVE (NEGATIVE); OCCULT BLOOD,URINE NEGATIVE (NEGATIVE); PH,URINE 5.5 (5.0-9.0); PROTEIN,URINE NEGATIVE (NEGATIVE); UROBILINOGEN,URINE 0.2 mg/dL (0.2-1.0)
[2023-12-28 07:16] LABS: BACTERIA,URINE MANY /HPF (0-FEW/HPF); EPITHELIAL CELLS,URINE MODERATE /HPF (NOT SEEN); MUCUS,URINE RARE /LPF (NOT SEEN); RBC,URINE NOT SEEN /HPF (0-5)
[2023-12-28 07:38] LABS: CALCIUM 1.1
[2023-12-28] MEDS: Orphenadrine 60 MG/2 ML Inj IM ONE (08:09)
[2023-12-28] MEDS: Iopamidol 612 MG/ML 100 ML Bottle IVPUSH ONE (08:17)
[2023-12-28 08:45] LABS: MAGNESIUM 1.8 mg/dL (1.8-2.4)
== END 2023-12-28 10:08 | disposition home or self-care (01) ==
LOC: DL.ED 06:15
DX: N83.201 Unspecified ovarian cyst, right side (principal); N30.00 Acute cystitis without hematuria; I10 Essential (primary) hypertension; K21.9 Gastro-esophageal reflux disease without esophagitis; E66.9 Obesity, unspecified; Z79.899 Other long term (current) drug therapy; Z88.5 Allergy status to narcotic agent; Z68.41 Body mass index [BMI] 40.0-44.9, adult
CPT/HCPCS: 36415; 74177; 80048; 81001; 83690; 83735; 85025; 87086; 96372; 99284; 99285; J1885; J2360; Q9967; J3490

== ENCOUNTER 2024-02-14 12:18 | Emergency (ER) | payer MEDICAID ==
[2024-02-14 12:37] VITALS: BP 168/90; PULSE 67
[2024-02-14 12:43] LABS: APPEARANCE,URINE CLEAR (CLEAR); BILIRUBIN,URINE NEGATIVE (NEGATIVE); COLOR,URINE YELLOW (YELLOW); GLUCOSE,URINE NEGATIVE (NEGATIVE); KETONES,URINE NEGATIVE (NEGATIVE); LEUKOCYTE ESTERASE,URINE TRACE (NEGATIVE); NITRITE,URINE NEGATIVE (NEGATIVE); OCCULT BLOOD,URINE NEGATIVE (NEGATIVE); PH,URINE 7.5 (5.0-9.0); PROTEIN,URINE NEGATIVE (NEGATIVE); UROBILINOGEN,URINE 0.2 mg/dL (0.2-1.0)
[2024-02-14 12:58] LABS: BACTERIA,URINE MODERATE /HPF (0-FEW/HPF); RBC,URINE 0-5 /HPF (0-5)
[2024-02-14 12:59] LABS: EPITHELIAL CELLS,URINE MODERATE /HPF (NOT SEEN)
== END 2024-02-14 13:16 | disposition home or self-care (01) ==
LOC: DL.ED 12:18
DX: L03.116 Cellulitis of left lower limb (principal); N76.0 Acute vaginitis; I10 Essential (primary) hypertension; E66.9 Obesity, unspecified; Z68.41 Body mass index [BMI] 40.0-44.9, adult; Z79.899 Other long term (current) drug therapy; Z88.5 Allergy status to narcotic agent
CPT/HCPCS: 81001; 87086; 99283

== ENCOUNTER 2024-02-28 12:18 | Emergency (ER) | payer MEDICAID ==
[2024-02-28 13:25] LABS: BASOPHILS PERCENT AUTO 0.5 % (0.0-1.0); EOSINOPHILS PERCENT AUTO 4.7 % (1.0-3.0); HEMATOCRIT 39.1 % (37.0-47.0); LYMPHOCYTES PERCENT AUTO 19.2 % (20.5-50.1); MEAN CORPUSCULAR HEMOGLOBIN 25.6 pg (27.0-34.0); MEAN CORPUSCULAR HGB CONC 30.7 g/dL (33.0-35.0); MEAN CORPUSCULAR VOLUME 83.5 fL (80-100); MONOCYTES PERCENT AUTO 6.2 % (2-8); NEUTROPHILS PERCENT AUTO 69.4 % (42.2-75.2); PLATELET COUNT,PLT 445 10^3/uL (150-450); RED BLOOD CELL COUNT 4.68 10^6/uL (4.2-5.4); WHITE BLOOD CELL COUNT,WBC 10.3 10^3/uL (5.0-10.0)
[2024-02-28 13:51] LABS: ALANINE AMINOTRANSFERASE,ALT 57 U/L (14-59); ALBUMIN 2.8 g/dL (3.4-5.0); ALKALINE PHOSPHATASE 97 U/L (46-116); ANION GAP 10.5 mEq/L (7-13); ASPARTATE AMNIOTRANSFERASE,AST 37 U/L (15-37); BILIRUBIN TOTAL 0.4 mg/dL (0.2-1.0); BLOOD UREA NITROGEN,BUN 14 mg/dL (7-18); BUN/CREATININE RATIO 17.9 (No establ ref range); C-REACTIVE PROTEIN 1.57 ng/dL (<=0.50); CALCIUM 8.6 mg/dL (8.5-10.1); CARBON DIOXIDE,CO2 30 mmol/L (21-32); CHLORIDE,CL 106 mmol/L (98-107); CREATININE 0.78 mg/dL (0.55-1.02); GLUCOSE RANDOM 109 mg/dL (70-99); LIPASE 24 U/L (16-77); MAGNESIUM 1.8 mg/dL (1.8-2.4); POTASSIUM,K 4.5 mmol/L (3.5-5.1); SODIUM,NA 142 mmol/L (136-145)
[2024-02-28 13:54] LABS: A/G RATIO 0.67; ESTIMATED GFR 92 mL/min (>=60); ETHANOL BLOOD MEDICAL < 3 mg/dL (0)
[2024-02-28 14:11] LABS: APPEARANCE,URINE CLEAR (CLEAR); BILIRUBIN,URINE NEGATIVE (NEGATIVE); COLOR,URINE YELLOW (YELLOW); GLUCOSE,URINE NEGATIVE (NEGATIVE); KETONES,URINE NEGATIVE (NEGATIVE); LEUKOCYTE ESTERASE,URINE NEGATIVE (NEGATIVE); NITRITE,URINE NEGATIVE (NEGATIVE); OCCULT BLOOD,URINE NEGATIVE (NEGATIVE); PH,URINE 7.5 (5.0-9.0); PROTEIN,URINE NEGATIVE (NEGATIVE); UROBILINOGEN,URINE 0.2 mg/dL (0.2-1.0)
[2024-02-28] MEDS: Iopamidol 612 MG/ML 100 ML Bottle IVPUSH ONE (14:36)
[2024-02-28] MEDS: Piperacillin/Tazobactam 4.5 GM in Sodium Chloride 0.9% 100 ML IV ONE (16:40)
[2024-02-28] MEDS: fentaNYL 100 MCG/2 ML SDV IVPUSH ONE (16:41)
[2024-02-28] MEDS: Sodium Chloride 0.9% 1,000 ML IV ONE (16:42)
[2024-02-28] MEDS: Ketorolac 30 MG/ML SDV IVPUSH ONE (17:45)
[2024-02-28 18:49] VITALS: BP 155/82; PULSE 63
== END 2024-02-28 18:51 ==
LOC: DL.ED 12:18
DX: K80.20 Calculus of gallbladder without cholecystitis without obstruction (principal); T18.5XXA Foreign body in anus and rectum, initial encounter; I10 Essential (primary) hypertension; E66.9 Obesity, unspecified; Z79.899 Other long term (current) drug therapy; Z88.6 Allergy status to analgesic agent; Z68.42 Body mass index [BMI] 45.0-49.9, adult; X58.XXXA Exposure to other specified factors, initial encounter
CPT/HCPCS: 36415; 74177; 76705; 80053; 80307; 81003; 83605; 83690; 83735; 84484; 85025; 86140; 93005; 96365; 96375; 99285; J1885; J2543; J3010; J3490; J7030; Q9967

== ENCOUNTER 2024-04-01 21:44 | Emergency (ER) | payer MEDICAID ==
[2024-04-01] MEDS: Iopamidol 612 MG/ML 100 ML Bottle IVPUSH ONE (21:45)
[2024-04-01] MEDS: Sodium Chloride 0.9% 1,000 ML IV ONE (21:57)
[2024-04-01 21:59] LABS: BASOPHILS PERCENT AUTO 0.3 % (0.0-1.0); EOSINOPHILS PERCENT AUTO 2.3 % (1.0-3.0); HEMATOCRIT 38.3 % (37.0-47.0); HEMOGLOBIN 11.8 g/dL (12.0-16.0); LYMPHOCYTES PERCENT AUTO 12.1 % (20.5-50.1); MEAN CORPUSCULAR HGB CONC 30.8 g/dL (33.0-35.0); MEAN CORPUSCULAR VOLUME 84.4 fL (80-100); MONOCYTES PERCENT AUTO 8.7 % (2-8); NEUTROPHILS PERCENT AUTO 76.6 % (42.2-75.2); PLATELET COUNT,PLT 373 10^3/uL (150-450); RED BLOOD CELL COUNT 4.54 10^6/uL (4.2-5.4); WHITE BLOOD CELL COUNT,WBC 8.7 10^3/uL (5.0-10.0)
[2024-04-01 22:19] LABS: A/G RATIO 0.77; ANION GAP 11.2 mEq/L (7-13); BILIRUBIN TOTAL 0.4 mg/dL (0.2-1.0); BUN/CREATININE RATIO 18.8 (No establ ref range); CALCIUM 8.6 mg/dL (8.5-10.1); CREATININE 0.96 mg/dL (0.55-1.02); EST CRCL DRUG DOSING (CG) 72.45 mL/min; POTASSIUM,K 4.2 mmol/L (3.5-5.1); PROTEIN TOTAL,TP 6.9 g/dL (6.4-8.2)
[2024-04-01] MEDS: Sodium Chloride 0.9% 10 ML Syringe FLUSH PRN (22:23)
[2024-04-01 22:42] LABS: APPEARANCE,URINE CLEAR (CLEAR); BILIRUBIN,URINE NEGATIVE (NEGATIVE); COLOR,URINE YELLOW (YELLOW); GLUCOSE,URINE NEGATIVE (NEGATIVE); KETONES,URINE NEGATIVE (NEGATIVE); LEUKOCYTE ESTERASE,URINE NEGATIVE (NEGATIVE); NITRITE,URINE NEGATIVE (NEGATIVE); OCCULT BLOOD,URINE NEGATIVE (NEGATIVE); PROTEIN,URINE NEGATIVE (NEGATIVE)
[2024-04-01 22:44] LABS: AMPHETAMINES,URINE NEGATIVE (NEGATIVE); BARBITURATES,URINE NEGATIVE (NEGATIVE); BENZODIAZEPINE,URINE NEGATIVE (NEGATIVE); MDMA (ECSTASY), URINE NEGATIVE (NEGATIVE); METHADONE,URINE NEGATIVE (NEGATIVE); METHAMPHETAMINES,URINE NEGATIVE (NEGATIVE); OPIATES,URINE NEGATIVE (NEGATIVE); OXYCODONE,URINE NEGATIVE (NEGATIVE); PHENCYCLIDINE,URINE NEGATIVE (NEGATIVE); TCA,URINE NEGATIVE (NEGATIVE)
[2024-04-01 23:31] VITALS: BP 115/83
[2024-04-02 00:05] VITALS: PULSE 73
== END 2024-04-02 00:15 | disposition home or self-care (01) ==
LOC: DL.ED 21:44
DX: R10.84 Generalized abdominal pain (principal); E66.9 Obesity, unspecified; Z79.899 Other long term (current) drug therapy; Z88.5 Allergy status to narcotic agent; Z68.41 Body mass index [BMI] 40.0-44.9, adult
CPT/HCPCS: 36415; 74177; 80053; 80305-QW; 81003; 81025; 83690; 85025; 96360; 96361; 99283; 99285-25; J3490; J7030; Q9967

== ENCOUNTER 2024-04-06 19:49 | Emergency (ER) | payer MEDICAID ==
[2024-04-06 20:11] LABS: BASOPHILS PERCENT AUTO 0.2 % (0.0-1.0); EOSINOPHILS PERCENT AUTO 2.6 % (1.0-3.0); HEMATOCRIT 40.3 % (37.0-47.0); HEMOGLOBIN 12.6 g/dL (12.0-16.0); LYMPHOCYTES PERCENT AUTO 32.2 % (20.5-50.1); MEAN CORPUSCULAR HEMOGLOBIN 25.8 pg (27.0-34.0); MEAN CORPUSCULAR HGB CONC 31.3 g/dL (33.0-35.0); MEAN CORPUSCULAR VOLUME 82.6 fL (80-100); MONOCYTES PERCENT AUTO 14.1 % (2-8); NEUTROPHILS PERCENT AUTO 50.9 % (42.2-75.2); PLATELET COUNT,PLT 294 10^3/uL (150-450); RED BLOOD CELL COUNT 4.88 10^6/uL (4.2-5.4); WHITE BLOOD CELL COUNT,WBC 4.2 10^3/uL (5.0-10.0)
[2024-04-06] MEDS: Sodium Chloride 0.9% 10 ML Syringe FLUSH PRN (20:11)
[2024-04-06 20:28] LABS: INR 0.9 (0.9-1.2); PROTHROMBIN TIME 9.6 SEC (9.0-12.0); PTT,PARTIAL THROMBOPLSTIN TIME 25.6 SEC (22.0-34.0)
[2024-04-06 20:34] LABS: ALBUMIN 3.2 g/dL (3.4-5.0); ANION GAP 10.7 mEq/L (7-13); BILIRUBIN TOTAL 0.5 mg/dL (0.2-1.0); C-REACTIVE PROTEIN 1.3 ng/dL (<=0.50); CALCIUM 8.5 mg/dL (8.5-10.1); CREATININE 0.77 mg/dL (0.55-1.02); EST CRCL DRUG DOSING (CG) 90.33 mL/min; MAGNESIUM 1.8 mg/dL (1.8-2.4); POTASSIUM,K 3.7 mmol/L (3.5-5.1); PROTEIN TOTAL,TP 7.1 g/dL (6.4-8.2)
[2024-04-06 20:36] LABS: A/G RATIO 0.82
[2024-04-06 20:39] LABS: APPEARANCE,URINE CLEAR (CLEAR); BILIRUBIN,URINE NEGATIVE (NEGATIVE); COLOR,URINE YELLOW (YELLOW); GLUCOSE,URINE NEGATIVE (NEGATIVE); KETONES,URINE NEGATIVE (NEGATIVE); LEUKOCYTE ESTERASE,URINE NEGATIVE (NEGATIVE); NITRITE,URINE NEGATIVE (NEGATIVE); OCCULT BLOOD,URINE NEGATIVE (NEGATIVE); PH,URINE 6.5 (5.0-9.0); PROTEIN,URINE NEGATIVE (NEGATIVE)
[2024-04-06] MEDS: Sodium Chloride 0.9% 500 ML IV ONE (21:05)
[2024-04-06] MEDS: fentaNYL 100 MCG/2 ML SDV IVPUSH ONE (21:05)
[2024-04-06] MEDS: Ciprofloxacin 500 MG Tab PO ONE (22:57)
[2024-04-06] MEDS: metroNIDAZOLE 250 MG Tab PO ONE (22:57)
[2024-04-06] MEDS: Acetaminophen/HYDROcodone 325-5 MG Tab PO ONE (22:57)
[2024-04-06] MEDS: Take Home: Acetaminophen/HYDROcodone 325-5 MG, 5 Tab Pack PO ONE (23:11)
[2024-04-06 23:13] VITALS: BP 119/86; PULSE 60
== END 2024-04-06 23:22 | disposition home or self-care (01) ==
LOC: DL.ED 19:49
DX: K57.32 Diverticulitis of large intestine without perforation or abscess without bleeding (principal); R93.89 Abnormal findings on diagnostic imaging of other specified body structures; I10 Essential (primary) hypertension; K21.9 Gastro-esophageal reflux disease without esophagitis; Z88.5 Allergy status to narcotic agent; Z79.899 Other long term (current) drug therapy
CPT/HCPCS: 36415; 74176; 76830; 80053; 81003; 83690; 83735; 84484; 85025; 85610; 85730; 86140; 93005; 96361; 96374; 99285; A9270; J3010; J7040; 93010; 99284; J3490

== ENCOUNTER 2024-04-10 15:30 | Emergency (ER) | payer MEDICAID ==
[2024-04-10] MEDS ORDERED: HYDROmorphone 0.5 MG/0.5 ML Syringe IVPUSH ONE (16:21)
[2024-04-10 16:33] VITALS: BP 152/86; PULSE 70
[2024-04-10 16:48] LABS: BASOPHILS PERCENT AUTO 0.1 % (0.0-1.0); EOSINOPHILS PERCENT AUTO 3.4 % (1.0-3.0); HEMATOCRIT 38.1 % (37.0-47.0); HEMOGLOBIN 11.9 g/dL (12.0-16.0); LYMPHOCYTES PERCENT AUTO 20.5 % (20.5-50.1); MEAN CORPUSCULAR HEMOGLOBIN 26.2 pg (27.0-34.0); MEAN CORPUSCULAR HGB CONC 31.2 g/dL (33.0-35.0); MEAN CORPUSCULAR VOLUME 83.9 fL (80-100); PLATELET COUNT,PLT 321 10^3/uL (150-450); RED BLOOD CELL COUNT 4.54 10^6/uL (4.2-5.4); WHITE BLOOD CELL COUNT,WBC 7.9 10^3/uL (5.0-10.0)
[2024-04-10 17:03] LABS: INR 0.9 (0.9-1.2); PROTHROMBIN TIME 9.4 SEC (9.0-12.0)
[2024-04-10 17:09] LABS: ALBUMIN 2.9 g/dL (3.4-5.0); BILIRUBIN DIRECT 0.1 mg/dL (0.0-0.2); BILIRUBIN INDIRECT 0.4; BILIRUBIN TOTAL 0.5 mg/dL (0.2-1.0); CALCIUM 8.5 mg/dL (8.5-10.1); CREATININE 0.75 mg/dL (0.55-1.02); EST CRCL DRUG DOSING (CG) 92.74 mL/min; PROTEIN TOTAL,TP 6.7 g/dL (6.4-8.2)
[2024-04-10 17:17] LABS: A/G RATIO 0.76
== END 2024-04-10 17:57 | disposition home or self-care (01) ==
LOC: DL.ED 15:30
DX: R10.84 Generalized abdominal pain (principal); I10 Essential (primary) hypertension; N17.9 Acute kidney failure, unspecified; E66.9 Obesity, unspecified; Z68.41 Body mass index [BMI] 40.0-44.9, adult; Z79.899 Other long term (current) drug therapy; Z88.5 Allergy status to narcotic agent
CPT/HCPCS: 36415; 80048; 80076; 82150; 83690; 85025; 85610; 99284

== ENCOUNTER 2024-04-19 17:34 | Emergency (ER) | payer MEDICAID ==
[2024-04-19 19:35] LABS: BASOPHILS PERCENT AUTO 0.4 % (0.0-1.0); HEMATOCRIT 41.2 % (37.0-47.0); LYMPHOCYTES PERCENT AUTO 21.2 % (20.5-50.1); MEAN CORPUSCULAR HEMOGLOBIN 26.5 pg (27.0-34.0); MEAN CORPUSCULAR HGB CONC 31.6 g/dL (33.0-35.0); MEAN CORPUSCULAR VOLUME 84.1 fL (80-100); MONOCYTES PERCENT AUTO 7.8 % (2-8); NEUTROPHILS PERCENT AUTO 67.6 % (42.2-75.2); PLATELET COUNT,PLT 414 10^3/uL (150-450); WHITE BLOOD CELL COUNT,WBC 9.2 10^3/uL (5.0-10.0)
[2024-04-19] MEDS: Ketorolac 30 MG/ML SDV IVPUSH ONE (19:36)
[2024-04-19] MEDS: Sodium Chloride 0.9% 1,000 ML IV ONE ×2 (19:36→22:20)
[2024-04-19 19:44] LABS: ALBUMIN 3.2 g/dL (3.4-5.0); ANION GAP 11.2 mEq/L (7-13); BILIRUBIN TOTAL 0.4 mg/dL (0.2-1.0); BUN/CREATININE RATIO 15.3 (No establ ref range); CALCIUM 8.8 mg/dL (8.5-10.1); CREATININE 0.85 mg/dL (0.55-1.02); EST CRCL DRUG DOSING (CG) 81.83 mL/min; MAGNESIUM 1.9 mg/dL (1.8-2.4); POTASSIUM,K 4.2 mmol/L (3.5-5.1); PROTEIN TOTAL,TP 7.9 g/dL (6.4-8.2)
[2024-04-19 19:47] LABS: LACTIC ACID 1.3 mmol/L (0.4-2.0)
[2024-04-19 19:48] LABS: A/G RATIO 0.68
[2024-04-19] MEDS: Iopamidol 612 MG/ML 100 ML Bottle IVPUSH ONE (21:31)
[2024-04-19 22:04] LABS: APPEARANCE,URINE CLEAR (CLEAR); BILIRUBIN,URINE NEGATIVE (NEGATIVE); COLOR,URINE YELLOW (YELLOW); GLUCOSE,URINE NEGATIVE (NEGATIVE); KETONES,URINE NEGATIVE (NEGATIVE); LEUKOCYTE ESTERASE,URINE NEGATIVE (NEGATIVE); NITRITE,URINE NEGATIVE (NEGATIVE); OCCULT BLOOD,URINE NEGATIVE (NEGATIVE); PH,URINE 5.5 (5.0-9.0); PROTEIN,URINE NEGATIVE (NEGATIVE); UROBILINOGEN,URINE 0.2 mg/dL (0.2-1.0)
[2024-04-20] MEDS: Piperacillin/Tazobactam 4.5 GM in Sodium Chloride 0.9% 100 ML IV ONE (00:08)
[2024-04-20 01:54] VITALS: BP 108/68; PULSE 60
== END 2024-04-20 01:47 ==
LOC: DL.ED 17:34
DX: K80.00 Calculus of gallbladder with acute cholecystitis without obstruction (principal); I10 Essential (primary) hypertension; E66.9 Obesity, unspecified; Z88.8 Allergy status to other drugs, medicaments and biological substances; Z79.899 Other long term (current) drug therapy; Z68.41 Body mass index [BMI] 40.0-44.9, adult
CPT/HCPCS: 36415; 74177; 76705; 80053; 81003; 83605; 83690; 83735; 84484; 85025; 93005; 93010; 96365; 96375; 99284; 99285-25; J1885; J2543; J3490; J7030; Q9967

== ENCOUNTER 2024-08-31 19:54 | Emergency (ER) | payer MEDICAID ==
[2024-08-31] MEDS: Aspirin 81 MG Tab.Chew PO ONE (20:19)
[2024-08-31 20:25] LABS: BASOPHILS PERCENT AUTO 0.5 % (0.0-1.0); EOSINOPHILS PERCENT AUTO 5.5 % (1.0-3.0); HEMATOCRIT 38.1 % (37.0-47.0); HEMOGLOBIN 11.8 g/dL (12.0-16.0); LYMPHOCYTES PERCENT AUTO 28.4 % (20.5-50.1); MEAN CORPUSCULAR HEMOGLOBIN 26.1 pg (27.0-34.0); MEAN CORPUSCULAR VOLUME 84.3 fL (80-100); NEUTROPHILS PERCENT AUTO 57.6 % (42.2-75.2); PLATELET COUNT,PLT 389 10^3/uL (150-450); RED BLOOD CELL COUNT 4.52 10^6/uL (4.2-5.4); WHITE BLOOD CELL COUNT,WBC 8.1 10^3/uL (5.0-10.0)
[2024-08-31 20:50] LABS: A/G RATIO 0.67; ALBUMIN 2.9 g/dL (3.4-5.0); ANION GAP 12.5 mEq/L (7-13); BILIRUBIN TOTAL 0.4 mg/dL (0.2-1.0); BUN/CREATININE RATIO 21.3 (No establ ref range); CALCIUM 8.5 mg/dL (8.5-10.1); CREATININE 0.75 mg/dL (0.55-1.02); EST CRCL DRUG DOSING (CG) 92.74 mL/min; MAGNESIUM 2.2 mg/dL (1.8-2.4); POTASSIUM,K 3.5 mmol/L (3.5-5.1); PROTEIN TOTAL,TP 7.2 g/dL (6.4-8.2)
[2024-08-31] MEDS: Iopamidol 755 Mg/ML 100 ML Bottle IVPUSH ONE (20:57)
[2024-08-31] MEDS: Acetaminophen 325 MG Tab PO ONE (22:47)
[2024-08-31] MEDS: GI Cocktail Oral Solution 30 ML PO ONE (23:26)
[2024-09-01 00:01] VITALS: BP 113/97; PULSE 74
== END 2024-08-31 23:56 | disposition home or self-care (01) ==
LOC: DL.ED 19:54
DX: R07.2 Precordial pain (principal); R07.89 Other chest pain; R79.89 Other specified abnormal findings of blood chemistry; I10 Essential (primary) hypertension; K21.9 Gastro-esophageal reflux disease without esophagitis; Z88.5 Allergy status to narcotic agent; Z79.51 Long term (current) use of inhaled steroids; Z79.899 Other long term (current) drug therapy
CPT/HCPCS: 36415; 71045; 71275; 80053; 82550; 83690; 83735; 84484; 85025; 85379; 93005; 99285; A9270-GY; Q9967

== ENCOUNTER 2024-11-21 19:46 | Emergency (ER) | payer SELFPAY ==
[2024-11-21] MEDS: Cyclobenzaprine 10 MG Tab PO ONE (20:12)
[2024-11-21] MEDS: Ketorolac 30 MG/ML SDV IM ONE (20:12)
[2024-11-21 22:01] VITALS: BP 122/63; PULSE 70
[2024-11-21] MEDS: Take Home: Cyclobenzaprine 10 MG Tab, 4 Tab Pack PO ONE (22:27)
== END 2024-11-21 22:32 | disposition home or self-care (01) ==
LOC: DL.ED 19:46
DX: S33.6XXA Sprain of sacroiliac joint, initial encounter (principal); S76.011A Strain of muscle, fascia and tendon of right hip, initial encounter; M62.830 Muscle spasm of back; M54.50 Low back pain, unspecified; M54.16 Radiculopathy, lumbar region; Z88.8 Allergy status to other drugs, medicaments and biological substances; Z79.899 Other long term (current) drug therapy; I10 Essential (primary) hypertension; E66.9 Obesity, unspecified; Z68.41 Body mass index [BMI] 40.0-44.9, adult; Z87.891 Personal history of nicotine dependence
CPT/HCPCS: 72131; 96372; 99284; A9270-GY; J1885

== ENCOUNTER 2024-12-27 10:55 | Emergency (ER) | payer OTHER ==
[2024-12-27 12:58] LABS: APPEARANCE,URINE CLEAR (CLEAR); BILIRUBIN,URINE NEGATIVE (NEGATIVE); COLOR,URINE YELLOW (YELLOW); GLUCOSE,URINE NEGATIVE (NEGATIVE); KETONES,URINE NEGATIVE (NEGATIVE); LEUKOCYTE ESTERASE,URINE NEGATIVE (NEGATIVE); NITRITE,URINE NEGATIVE (NEGATIVE); OCCULT BLOOD,URINE NEGATIVE (NEGATIVE); PROTEIN,URINE NEGATIVE (NEGATIVE); UROBILINOGEN,URINE 0.2 mg/dL (0.2-1.0)
[2024-12-27] MEDS ORDERED: Sodium Chloride 0.9% 10 ML Syringe FLUSH PRN (13:01)
[2024-12-27 13:16] LABS: BASOPHILS PERCENT AUTO 0.4 % (0.0-1.0); HEMATOCRIT 39.3 % (37.0-47.0); HEMOGLOBIN 12.3 g/dL (12.0-16.0); LYMPHOCYTES PERCENT AUTO 26.8 % (20.5-50.1); MEAN CORPUSCULAR HEMOGLOBIN 26.6 pg (27.0-34.0); MEAN CORPUSCULAR HGB CONC 31.3 g/dL (33.0-35.0); MEAN CORPUSCULAR VOLUME 84.9 fL (80-100); MONOCYTES PERCENT AUTO 6.3 % (2-8); NEUTROPHILS PERCENT AUTO 62.5 % (42.2-75.2); PLATELET COUNT,PLT 384 10^3/uL (150-450); RED BLOOD CELL COUNT 4.63 10^6/uL (4.2-5.4); WHITE BLOOD CELL COUNT,WBC 8.4 10^3/uL (5.0-10.0)
[2024-12-27 13:34] VITALS: BP 130/84; PULSE 73
[2024-12-27 13:38] LABS: ALANINE AMINOTRANSFERASE,ALT 59 U/L (14-59); ALBUMIN 2.8 g/dL (3.4-5.0); ALKALINE PHOSPHATASE 117 U/L (46-116); ANION GAP 7.2 mEq/L (7-13); ASPARTATE AMNIOTRANSFERASE,AST 43 U/L (15-37); BILIRUBIN TOTAL 0.5 mg/dL (0.2-1.0); BLOOD UREA NITROGEN,BUN 10 mg/dL (7-18); BUN/CREATININE RATIO 14.7 (No establ ref range); C-REACTIVE PROTEIN 2.06 ng/dL (<=0.50); CALCIUM 8.8 mg/dL (8.5-10.1); CARBON DIOXIDE,CO2 29 mmol/L (21-32); CHLORIDE,CL 107 mmol/L (98-107); CREATININE 0.68 mg/dL (0.55-1.02); GLUCOSE RANDOM 97 mg/dL (70-99); LIPASE 19 U/L (16-77); POTASSIUM,K 4.2 mmol/L (3.5-5.1); PROTEIN TOTAL,TP 7.1 g/dL (6.4-8.2); SODIUM,NA 139 mmol/L (136-145)
[2024-12-27 13:39] LABS: LACTIC ACID 1.1 mmol/L (0.4-2.0)
[2024-12-27 13:43] LABS: A/G RATIO 0.65; ESTIMATED GFR 105 mL/min (>=60)
[2024-12-27] MEDS: Iopamidol 612 MG/ML 100 ML Bottle IVPUSH ONE (13:50)
== END 2024-12-27 16:00 | disposition home or self-care (01) ==
LOC: DL.ED 10:55
DX: K57.30 Diverticulosis of large intestine without perforation or abscess without bleeding (principal); I10 Essential (primary) hypertension; E66.9 Obesity, unspecified; Z88.8 Allergy status to other drugs, medicaments and biological substances; Z79.899 Other long term (current) drug therapy
CPT/HCPCS: 36415; 74177; 80053; 81003; 83605; 83690; 85025; 86140; 99284; 99285; Q9967

== ENCOUNTER 2025-02-03 22:15 | Emergency (ER) | payer OTHER ==
[2025-02-03] MEDS ORDERED: Sodium Chloride 0.9% 10 ML Syringe FLUSH PRN (22:21)
[2025-02-03] MEDS ORDERED: Pantoprazole 40 MG in Sodium Chloride 0.9% 100 ML IV ONE (22:28)
[2025-02-03 22:38] LABS: BASOPHILS PERCENT AUTO 0.5 % (0.0-1.0); EOSINOPHILS PERCENT AUTO 4.8 % (1.0-3.0); HEMATOCRIT 41.5 % (37.0-47.0); HEMOGLOBIN 12.8 g/dL (12.0-16.0); LYMPHOCYTES PERCENT AUTO 27.7 % (20.5-50.1); MEAN CORPUSCULAR HEMOGLOBIN 26.2 pg (27.0-34.0); MEAN CORPUSCULAR HGB CONC 30.8 g/dL (33.0-35.0); MONOCYTES PERCENT AUTO 6.9 % (2-8); NEUTROPHILS PERCENT AUTO 60.1 % (42.2-75.2); PLATELET COUNT,PLT 357 10^3/uL (150-450); RED BLOOD CELL COUNT 4.88 10^6/uL (4.2-5.4); WHITE BLOOD CELL COUNT,WBC 9.2 10^3/uL (5.0-10.0)
[2025-02-03] MEDS: Aspirin 81 MG Tab.Chew PO ONE (22:42)
[2025-02-03] MEDS: GI Cocktail Oral Solution 30 ML PO ONE (22:42)
[2025-02-03] MEDS: Pantoprazole 40 MG Vial IVPUSH ONE (22:44)
[2025-02-03 22:58] LABS: INR 0.9 (0.9-1.2); PROTHROMBIN TIME 9.9 SEC (9.0-12.0); PTT,PARTIAL THROMBOPLSTIN TIME 25.5 SEC (22.0-34.0)
[2025-02-03 23:00] LABS: ALANINE AMINOTRANSFERASE,ALT 66 U/L (14-59); ALBUMIN 3.1 g/dL (3.4-5.0); ALKALINE PHOSPHATASE 140 U/L (46-116); ASPARTATE AMNIOTRANSFERASE,AST 53 U/L (15-37); BILIRUBIN TOTAL 0.4 mg/dL (0.2-1.0); BLOOD UREA NITROGEN,BUN 20 mg/dL (7-18); BUN/CREATININE RATIO 15.9 (No establ ref range); CALCIUM 9.1 mg/dL (8.5-10.1); CARBON DIOXIDE,CO2 30 mmol/L (21-32); CHLORIDE,CL 106 mmol/L (98-107); CREATININE 1.26 mg/dL (0.55-1.02); GLUCOSE RANDOM 113 mg/dL (70-99); MAGNESIUM 2.1 mg/dL (1.8-2.4); PROTEIN TOTAL,TP 7.5 g/dL (6.4-8.2); SODIUM,NA 141 mmol/L (136-145)
[2025-02-03 23:06] LABS: B-TYPE NATRIURETIC PEPTIDE,BNP < 5 pg/ml (0-100); EST CRCL DRUG DOSING (CG) 54.58 mL/min; ESTIMATED GFR 51 mL/min (>=60)
[2025-02-04 00:46] VITALS: BP 151/83
[2025-02-04 01:38] LABS: APPEARANCE,URINE SLIGHTLY CLOUDY (CLEAR); BILIRUBIN,URINE NEGATIVE (NEGATIVE); COLOR,URINE YELLOW (YELLOW); GLUCOSE,URINE NEGATIVE (NEGATIVE); KETONES,URINE NEGATIVE (NEGATIVE); LEUKOCYTE ESTERASE,URINE SMALL (NEGATIVE); NITRITE,URINE NEGATIVE (NEGATIVE); OCCULT BLOOD,URINE NEGATIVE (NEGATIVE); PH,URINE 6.5 (5.0-9.0); PROTEIN,URINE NEGATIVE (NEGATIVE)
[2025-02-04 01:55] VITALS: PULSE 84
[2025-02-04 02:05] LABS: RBC,URINE NOT SEEN /HPF (0-5); WBC,URINE 20-30 /HPF (0-5/HPF)
[2025-02-04 02:06] LABS: BACTERIA,URINE FEW /HPF (0-FEW/HPF); EPITHELIAL CELLS,URINE MODERATE /HPF (NOT SEEN)
== END 2025-02-04 01:51 | disposition home or self-care (01) ==
LOC: DL.ED 22:15
DX: R07.89 Other chest pain (principal); K29.00 Acute gastritis without bleeding; R74.01 Elevation of levels of liver transaminase levels; I10 Essential (primary) hypertension; K21.9 Gastro-esophageal reflux disease without esophagitis; E66.9 Obesity, unspecified; Z79.899 Other long term (current) drug therapy; Z88.5 Allergy status to narcotic agent; Z68.41 Body mass index [BMI] 40.0-44.9, adult
CPT/HCPCS: 36415; 71045; 74177; 80053; 81001; 83690; 83735; 83880; 84484; 85025; 85379; 85610; 85730; 93005; 96374; 99285; A9270; J2470

== ENCOUNTER 2025-02-13 23:25 | Emergency (ER) | payer OTHER ==
[2025-02-13] MEDS ORDERED: Sodium Chloride 0.9% 10 ML Syringe FLUSH PRN (23:35)
[2025-02-13 23:49] LABS: BASOPHILS PERCENT AUTO 0.1 % (0.0-1.0); EOSINOPHILS PERCENT AUTO 2.4 % (1.0-3.0); LYMPHOCYTES PERCENT AUTO 14.7 % (20.5-50.1); MONOCYTES PERCENT AUTO 5.0 % (2-8); NEUTROPHILS PERCENT AUTO 77.8 % (42.2-75.2); PLATELET COUNT,PLT 361 10^3/uL (150-450); RED BLOOD CELL COUNT 4.88 10^6/uL (4.2-5.4); WHITE BLOOD CELL COUNT,WBC 16.4 10^3/uL (5.0-10.0)
[2025-02-13] MEDS: Ondansetron 4 MG/2 ML SDV IVPUSH ONE (23:54)
[2025-02-13 23:59] VITALS: BP 104/72; PULSE 73
[2025-02-14 00:11] LABS: ALANINE AMINOTRANSFERASE,ALT 60.0 U/L (14-59); ASPARTATE AMNIOTRANSFERASE,AST 45.0 U/L (15-37); BILIRUBIN TOTAL 0.5 mg/dL (0.2-1.0); BLOOD UREA NITROGEN,BUN 21.0 mg/dL (7-18); CARBON DIOXIDE,CO2 28.0 mmol/L (21-32); CHLORIDE,CL 107.0 mmol/L (98-107); CREATININE 0.89 mg/dL (0.55-1.02); EST CRCL DRUG DOSING (CG) 77.27 mL/min; GLUCOSE RANDOM 106.0 mg/dL (70-99); POTASSIUM,K 3.7 mmol/L (3.5-5.1); PROTEIN TOTAL,TP 7.5 g/dL (6.4-8.2); SODIUM,NA 143.0 mmol/L (136-145)
[2025-02-14 00:14] LABS: A/G RATIO 0.79; ESTIMATED GFR 78.0 mL/min (>=60)
[2025-02-14] MEDS: Ketorolac 30 MG/ML SDV IVPUSH ONE (00:44)
[2025-02-14] MEDS: Iopamidol 755 Mg/ML 100 ML Bottle IVPUSH ONE ×2 (01:12→01:46)
[2025-02-14] MEDS: Take Home: Ondansetron 4 MG Tab.DIS, 5 Tab Pack PO ONE (02:41)
== END 2025-02-14 02:49 | disposition home or self-care (01) ==
LOC: DL.ED 23:25
DX: A08.4 Viral intestinal infection, unspecified (principal); D72.829 Elevated white blood cell count, unspecified; I10 Essential (primary) hypertension; E66.9 Obesity, unspecified; Z88.0 Allergy status to penicillin; Z79.899 Other long term (current) drug therapy
CPT/HCPCS: 36415; 74177; 80053; 83690; 85025; 96374; 96375; 99284; J1885; J2405; Q0162; Q9967

== ENCOUNTER 2025-02-24 20:36 | Emergency (ER) | payer OTHER ==
[2025-02-24 21:11] LABS: BASOPHILS PERCENT AUTO 0.5 % (0.0-1.0); EOSINOPHILS PERCENT AUTO 4.0 % (1.0-3.0); LYMPHOCYTES PERCENT AUTO 29.1 % (20.5-50.1); MONOCYTES PERCENT AUTO 5.9 % (2-8); NEUTROPHILS PERCENT AUTO 60.5 % (42.2-75.2); PLATELET COUNT,PLT 383 10^3/uL (150-450); RED BLOOD CELL COUNT 4.62 10^6/uL (4.2-5.4); WHITE BLOOD CELL COUNT,WBC 8.5 10^3/uL (5.0-10.0)
[2025-02-24 21:21] LABS: BLOOD UREA NITROGEN,BUN 12.0 mg/dL (7-18); CARBON DIOXIDE,CO2 29.0 mmol/L (21-32); CHLORIDE,CL 105.0 mmol/L (98-107); CREATININE 0.89 mg/dL (0.55-1.02); EST CRCL DRUG DOSING (CG) 77.27 mL/min; GLUCOSE RANDOM 100.0 mg/dL (70-99); POTASSIUM,K 4.2 mmol/L (3.5-5.1); SODIUM,NA 140.0 mmol/L (136-145)
[2025-02-24 21:22] LABS: ESTIMATED GFR 78.0 mL/min (>=60)
[2025-02-24] MEDS: Orphenadrine 60 MG/2 ML Inj IM ONE (21:45)
[2025-02-24 21:49] VITALS: BP 115/73
[2025-02-24] MEDS: Take Home: Cyclobenzaprine 10 MG Tab, 4 Tab Pack PO ONE (21:53)
[2025-02-24] MEDS: GI Cocktail Oral Solution 30 ML PO ONE (22:00)
[2025-02-24 22:17] VITALS: PULSE 63
== END 2025-02-24 22:10 | disposition home or self-care (01) ==
LOC: DL.ED 20:36
DX: R07.89 Other chest pain (principal); I10 Essential (primary) hypertension; Z88.5 Allergy status to narcotic agent; Z79.51 Long term (current) use of inhaled steroids; Z79.899 Other long term (current) drug therapy
CPT/HCPCS: 36415; 80048; 83735; 85025; 96372; 99285; A9270; J2360

== ENCOUNTER 2025-03-07 21:30 | Emergency (ER) | payer OTHER ==
[2025-03-07 21:36] VITALS: BP 114/65; PULSE 74
== END 2025-03-07 21:48 | disposition home or self-care (01) ==
LOC: DL.ED 21:30
DX: T63.444A Toxic effect of venom of bees, undetermined, initial encounter (principal); I10 Essential (primary) hypertension; K21.9 Gastro-esophageal reflux disease without esophagitis; Z88.5 Allergy status to narcotic agent; Z79.899 Other long term (current) drug therapy; Z79.51 Long term (current) use of inhaled steroids
CPT/HCPCS: 99282; 99283

== ENCOUNTER 2025-04-13 10:57 | Emergency (ER) | payer OTHER ==
[2025-04-13] MEDS ORDERED: Sodium Chloride 0.9% 10 ML Syringe FLUSH PRN (11:23)
[2025-04-13 11:30] LABS: BASOPHILS PERCENT AUTO 0.4 % (0.0-1.0); EOSINOPHILS PERCENT AUTO 4.9 % (1.0-3.0); LYMPHOCYTES PERCENT AUTO 29.0 % (20.5-50.1); MONOCYTES PERCENT AUTO 4.9 % (2-8); NEUTROPHILS PERCENT AUTO 60.8 % (42.2-75.2); PLATELET COUNT,PLT 380 10^3/uL (150-450); RED BLOOD CELL COUNT 5.10 10^6/uL (4.2-5.4); WHITE BLOOD CELL COUNT,WBC 7.9 10^3/uL (5.0-10.0)
[2025-04-13 11:39] LABS: INR 0.9 (0.9-1.2); PTT,PARTIAL THROMBOPLSTIN TIME 26.4 SEC (22.0-34.0)
[2025-04-13 11:43] LABS: A/G RATIO 0.8; ALANINE AMINOTRANSFERASE,ALT 52 U/L (14-59); ASPARTATE AMNIOTRANSFERASE,AST 44 U/L (15-37); BILIRUBIN TOTAL 0.7 mg/dL (0.2-1.0); BLOOD UREA NITROGEN,BUN 13 mg/dL (7-18); CARBON DIOXIDE,CO2 29 mmol/L (21-32); CHLORIDE,CL 106 mmol/L (98-107); CREATININE 0.75 mg/dL (0.55-1.02); GLUCOSE RANDOM 98 mg/dL (70-99); POTASSIUM,K 3.9 mmol/L (3.5-5.1); PROTEIN TOTAL,TP 8.4 g/dL (6.4-8.2); SODIUM,NA 145 mmol/L (136-145)
[2025-04-13 11:46] LABS: ESTIMATED GFR 96 mL/min (>=60)
[2025-04-13] MEDS: Ondansetron 4 MG/2 ML SDV IVPUSH ONE (11:48)
[2025-04-13] MEDS: fentaNYL 100 MCG/2 ML SDV IVPUSH ONE (11:48)
[2025-04-13] MEDS: Iopamidol 612 MG/ML 100 ML Bottle IVPUSH ONE (11:49)
[2025-04-13 12:06] LABS: LACTIC ACID 3.1 mmol/L (0.4-2.0)
[2025-04-13 12:26] LABS: APPEARANCE,URINE CLEAR (CLEAR); GLUCOSE,URINE NEGATIVE (NEGATIVE); OCCULT BLOOD,URINE NEGATIVE (NEGATIVE)
[2025-04-13 12:36] LABS: EPITHELIAL CELLS,URINE FEW /HPF (NOT SEEN)
[2025-04-13] MEDS: Dicyclomine 20 MG/2 ML SDV IM ONE (12:56)
[2025-04-13 17:51] VITALS: BP 112/50; PULSE 57
== END 2025-04-13 14:38 | disposition home or self-care (01) ==
LOC: DL.ED 10:57
DX: N39.0 Urinary tract infection, site not specified (principal); I10 Essential (primary) hypertension; E66.9 Obesity, unspecified; Z88.5 Allergy status to narcotic agent; Z79.51 Long term (current) use of inhaled steroids; Z79.899 Other long term (current) drug therapy
CPT/HCPCS: 36415; 74177; 80053; 81001; 83605; 83690; 83735; 85025; 85610; 85730; 86140; 87040; 96372; 96374; 96375; 99284; 99285; J0500; J0696; J1630; J2405; J3010; J7030; Q9967

== ENCOUNTER 2025-04-17 17:18 | Emergency (ER) | payer OTHER ==
[2025-04-17] MEDS: Ketorolac 30 MG/ML SDV IM ONE (17:28)
[2025-04-17 18:51] VITALS: BP 103/64; PULSE 61
== END 2025-04-17 18:45 | disposition home or self-care (01) ==
LOC: DL.ED 17:18
DX: M54.50 Low back pain, unspecified (principal); I10 Essential (primary) hypertension; E66.9 Obesity, unspecified; Z68.41 Body mass index [BMI] 40.0-44.9, adult; Z88.5 Allergy status to narcotic agent; Z79.51 Long term (current) use of inhaled steroids; Z79.899 Other long term (current) drug therapy
CPT/HCPCS: 72110; 96372; 99283; J1171; J1885

== ENCOUNTER 2025-05-13 14:24 | Emergency (ER) | payer OTHER ==
[2025-05-13 15:37] LABS: BASOPHILS PERCENT AUTO 0.3 % (0.0-1.0); EOSINOPHILS PERCENT AUTO 2.3 % (1.0-3.0); LYMPHOCYTES PERCENT AUTO 19.7 % (20.5-50.1); MONOCYTES PERCENT AUTO 7.0 % (2-8); NEUTROPHILS PERCENT AUTO 70.7 % (42.2-75.2); PLATELET COUNT,PLT 337 10^3/uL (150-450); RED BLOOD CELL COUNT 4.44 10^6/uL (4.2-5.4); WHITE BLOOD CELL COUNT,WBC 9.1 10^3/uL (5.0-10.0)
[2025-05-13 15:59] LABS: A/G RATIO 0.78; ALANINE AMINOTRANSFERASE,ALT 50 U/L (14-59); ASPARTATE AMNIOTRANSFERASE,AST 33 U/L (15-37); BILIRUBIN TOTAL 0.4 mg/dL (0.2-1.0); BLOOD UREA NITROGEN,BUN 14 mg/dL (7-18); CARBON DIOXIDE,CO2 31 mmol/L (21-32); CHLORIDE,CL 108 mmol/L (98-107); CREATININE 0.79 mg/dL (0.55-1.02); ESTIMATED GFR 90 mL/min (>=60); GLUCOSE RANDOM 131 mg/dL (70-99); POTASSIUM,K 4.6 mmol/L (3.5-5.1); PROTEIN TOTAL,TP 7.1 g/dL (6.4-8.2); SODIUM,NA 145 mmol/L (136-145)
[2025-05-13] MEDS: Iopamidol 755 Mg/ML 100 ML Bottle IVPUSH ONE (17:13)
[2025-05-13 19:14] VITALS: BP 122/90; PULSE 66
== END 2025-05-13 20:28 | disposition home or self-care (01) ==
LOC: DL.ED 14:24
DX: R07.81 Pleurodynia (principal); R07.89 Other chest pain; I10 Essential (primary) hypertension; K21.9 Gastro-esophageal reflux disease without esophagitis; Z88.8 Allergy status to other drugs, medicaments and biological substances; Z79.899 Other long term (current) drug therapy
CPT/HCPCS: 36415; 71045; 71275; 80053; 84484; 85025; 85379; 93005; 99285; J7030; Q9967

== ENCOUNTER 2025-05-17 16:32 | Emergency (ER) | payer OTHER ==
[2025-05-17] MEDS: Orphenadrine 60 MG/2 ML Inj IM ONE (17:01)
[2025-05-17 17:07] VITALS: BP 112/89; PULSE 68
== END 2025-05-17 17:00 | disposition home or self-care (01) ==
LOC: DL.ED 16:32
DX: M62.830 Muscle spasm of back (principal); I10 Essential (primary) hypertension; K21.9 Gastro-esophageal reflux disease without esophagitis; Z88.5 Allergy status to narcotic agent; Z79.899 Other long term (current) drug therapy
CPT/HCPCS: 96372; 99283; J2360; 99282

== ENCOUNTER 2025-05-23 11:23 | Emergency (ER) | payer OTHER ==
[2025-05-23 12:19] VITALS: PULSE 76
[2025-05-23 12:58] VITALS: BP 129/78
== END 2025-05-23 12:45 | disposition home or self-care (01) ==
LOC: DL.ED 11:23
DX: M25.562 Pain in left knee (principal); I10 Essential (primary) hypertension; K21.9 Gastro-esophageal reflux disease without esophagitis; Z88.5 Allergy status to narcotic agent; Z79.899 Other long term (current) drug therapy
CPT/HCPCS: 73562-LT; 99283

== ENCOUNTER 2025-06-02 19:18 | Emergency (ER) | payer OTHER ==
[2025-06-02] MEDS: diphenhydrAMINE 50 MG/ML SDV IM ONE (20:04)
[2025-06-02 20:23] VITALS: BP 152/56; PULSE 74
== END 2025-06-02 20:18 | disposition home or self-care (01) ==
LOC: DL.ED 19:18
DX: M25.872 Other specified joint disorders, left ankle and foot (principal); M25.871 Other specified joint disorders, right ankle and foot; L29.9 Pruritus, unspecified; I10 Essential (primary) hypertension; E11.9 Type 2 diabetes mellitus without complications; K21.9 Gastro-esophageal reflux disease without esophagitis; Z86.16 Personal history of COVID-19; Z88.5 Allergy status to narcotic agent; Z79.899 Other long term (current) drug therapy
CPT/HCPCS: 96372; 99283; J1200

== ENCOUNTER 2025-06-06 14:28 | Emergency (ER) | payer OTHER ==
[2025-06-06 14:36] VITALS: BP 151/66; PULSE 74
== END 2025-06-06 15:00 | disposition home or self-care (01) ==
LOC: DL.ED 14:28
DX: M79.672 Pain in left foot (principal); E11.9 Type 2 diabetes mellitus without complications; Z88.5 Allergy status to narcotic agent; I10 Essential (primary) hypertension; E66.9 Obesity, unspecified; M25.472 Effusion, left ankle; M79.89 Other specified soft tissue disorders; Z86.16 Personal history of COVID-19; Z68.41 Body mass index [BMI] 40.0-44.9, adult; Z79.899 Other long term (current) drug therapy
CPT/HCPCS: 99282; 99283; A9270-GY

== ENCOUNTER 2025-06-09 21:48 | Emergency (ER) | payer OTHER ==
[2025-06-09] MEDS ORDERED: Sodium Chloride 0.9% 10 ML Syringe FLUSH PRN (21:53)
[2025-06-09 22:07] LABS: BASOPHILS PERCENT AUTO 0.4 % (0.0-1.0); EOSINOPHILS PERCENT AUTO 6.2 % (1.0-3.0); LYMPHOCYTES PERCENT AUTO 26.1 % (20.5-50.1); MONOCYTES PERCENT AUTO 7.0 % (2-8); NEUTROPHILS PERCENT AUTO 60.3 % (42.2-75.2); PLATELET COUNT,PLT 370 10^3/uL (150-450); RED BLOOD CELL COUNT 4.65 10^6/uL (4.2-5.4); WHITE BLOOD CELL COUNT,WBC 8.4 10^3/uL (5.0-10.0)
[2025-06-09 22:28] LABS: A/G RATIO 0.9; ALANINE AMINOTRANSFERASE,ALT 49.0 U/L (14-59); ASPARTATE AMNIOTRANSFERASE,AST 32.0 U/L (15-37); BILIRUBIN TOTAL 0.3 mg/dL (0.2-1.0); BLOOD UREA NITROGEN,BUN 20.0 mg/dL (7-18); CARBON DIOXIDE,CO2 28.0 mmol/L (21-32); CHLORIDE,CL 106.0 mmol/L (98-107); CREATININE 0.83 mg/dL (0.55-1.02); EST CRCL DRUG DOSING (CG) 82.86 mL/min; GLUCOSE RANDOM 135.0 mg/dL (70-99); POTASSIUM,K 3.7 mmol/L (3.5-5.1); PROTEIN TOTAL,TP 7.2 g/dL (6.4-8.2); SODIUM,NA 144.0 mmol/L (136-145)
[2025-06-09 22:29] LABS: ESTIMATED GFR 85.0 mL/min (>=60)
[2025-06-09 22:46] LABS: INR 0.9 (0.9-1.2); PTT,PARTIAL THROMBOPLSTIN TIME 25.2 SEC (22.0-34.0)
[2025-06-10 00:40] VITALS: BP 139/78; PULSE 70
== END 2025-06-09 23:01 | disposition home or self-care (01) ==
LOC: DL.ED 21:48
DX: M79.672 Pain in left foot (principal); I10 Essential (primary) hypertension; K21.9 Gastro-esophageal reflux disease without esophagitis; Z86.16 Personal history of COVID-19; Z88.5 Allergy status to narcotic agent; Z79.899 Other long term (current) drug therapy
CPT/HCPCS: 36415; 80053; 82947; 83036; 83735; 85025; 85610; 85730; 99284; A9270-GY

== ENCOUNTER 2025-07-04 13:58 | Emergency (ER) | payer OTHER ==
[2025-07-04 14:16] VITALS: BP 168/79; PULSE 94
[2025-07-04] MEDS: Amoxicillin/Clavulanate K 875-125 MG Tab PO ONE (14:35)
== END 2025-07-04 14:50 | disposition home or self-care (01) ==
LOC: DL.ED 13:58
DX: J01.90 Acute sinusitis, unspecified (principal); B96.89 Other specified bacterial agents as the cause of diseases classified elsewhere; I10 Essential (primary) hypertension; E66.9 Obesity, unspecified; Z88.5 Allergy status to narcotic agent; Z79.899 Other long term (current) drug therapy; Z79.51 Long term (current) use of inhaled steroids; Z86.16 Personal history of COVID-19; Z68.41 Body mass index [BMI] 40.0-44.9, adult
CPT/HCPCS: 99283; A9270

== ENCOUNTER 2025-07-16 19:29 | Emergency (ER) | payer OTHER ==
[2025-07-16] MEDS: Dexamethasone 4 MG/ML SDV IM ONE (19:54)
[2025-07-16 20:08] VITALS: BP 116/80; PULSE 94
== END 2025-07-16 20:05 | disposition home or self-care (01) ==
LOC: DL.ED 19:29
DX: M19.072 Primary osteoarthritis, left ankle and foot (principal); I10 Essential (primary) hypertension; K21.9 Gastro-esophageal reflux disease without esophagitis; Z88.5 Allergy status to narcotic agent; Z79.899 Other long term (current) drug therapy; Z86.16 Personal history of COVID-19
CPT/HCPCS: 96372; 99283; 99284; J1100